=== PATIENT | female | born 1930 | race Caucasian/White ===

== ENCOUNTER 2017-01-12 09:05 | Inpatient (IN) | END 2017-01-19 19:13 | disposition short-term general hospital (02) | DRG 481 | DX: S72.141A Displaced intertrochanteric fracture of right femur, initial encounter for closed fracture (principal); N39.0 Urinary tract infection, site not specified; I10 Essential (primary) hypertension; B96.20 Unspecified Escherichia coli [E. coli] as the cause of diseases classified elsewhere; E21.3 Hyperparathyroidism, unspecified; E78.5 Hyperlipidemia, unspecified; K21.9 Gastro-esophageal reflux disease without esophagitis; R94.31 Abnormal electrocardiogram [ECG] [EKG]; D50.9 Iron deficiency anemia, unspecified; M19.90 Unspecified osteoarthritis, unspecified site; M85.80 Other specified disorders of bone density and structure, unspecified site; W01.0XXA Fall on same level from slipping, tripping and stumbling without subsequent striking against object, initial encounter; Y92.009 Unspecified place in unspecified non-institutional (private) residence as the place of occurrence of the external cause; Z87.891 Personal history of nicotine dependence ==

== ENCOUNTER 2017-01-19 18:06 | Inpatient (IN) | payer MEDICARE, OTHER ==
[~2017-01-19] VITALS: Ht 142.2 cm; Wt 65.0 kg
[~2017-01-19 18:06] MED LIST: ASPI-664 PO; BENA10TA48 PO; Calcium Carbonate PO; DULO20CA17 PO; FER325 PO; FURO-110 PO; FURO40TA4 PO; GABA400C14 PO; HYDR-3498 PO; HYDR200T5 PO; LOSA100T7 PO; METO-448 PO; MYL80 PO; OMEP40CA6 PO; OXYB5TAB22 PO; PANT40TA3 PO; POTA10TA37 PO; UDMOM PO
[2017-01-19 20:00] VITALS: Ht 142.2 cm; Wt 65.0 kg
[2017-01-19] MEDS ORDERED: MAGNESIUM HYDROXIDE 30ML CUP PO PRN (20:30)
[2017-01-19] MEDS ORDERED: ACETAMINOPHEN 325 MG TAB PO PRN (20:30)
[2017-01-19] MEDS: FERROUS SULFATE (EC) 325 MG TAB PO SCH (20:53)
[2017-01-19] MEDS: HYDROCODONE/APAP (5/325) TAB PO PRN (20:53)
[2017-01-19] MEDS: METOPROLOL 25 MG TAB PO SCH (20:54)
[2017-01-19 22:56] LABS: ADD UMIC YES; UR AMORPHOUS CRYSTAL MODERATE /HPF (NONE SEEN); UR ASCORBIC ACID NEGATIVE (NEGATIVE); UR BACTERIA MANY /HPF (NONE SEEN); UR BILIRUBIN (Dip) NEGATIVE (NEGATIVE); UR BLOOD (Dip) 3+ mg/dL (NEGATIVE); UR CLARITY TURBID (CLEAR); UR COLOR YELLOW (YELLOW); UR GLUCOSE (Dip) NEGATIVE (NEGATIVE); UR KETONES (Dip) NEGATIVE (NEGATIVE); UR LEUKOCYTE ESTERASE (Dip) 3+ Leu/ul (NEGATIVE); UR NITRITE (Dip) NEGATIVE (NEGATIVE); UR NONSQUAMOUS EPITHELIAL CELL 6 /HPF (NONE SEEN); UR RBC 60 /HPF (0-5); UR SPECIFIC GRAVITY (Dip) 1.004 (1.003-1.030); UR SQUAMOUS EPITHELIAL CELL FEW /HPF (FEW); UR TOTAL PROTEIN (Dip) 2+ mg/dl (NEGATIVE); UR UROBILINOGEN (Dip) NEGATIVE (NEGATIVE); UR WBC CLUMPS FEW /HPF (NONE SEEN)
[2017-01-19] MEDS: HYDROmorphONE 1 MG/ML SYG IV PRN (23:04)
[2017-01-20] MEDS: HYDROmorphONE 1 MG/ML SYG IV PRN ×4 (05:28→20:35)
[2017-01-20] MEDS: PANTOPRAZOLE (EC) 40 MG TAB PO SCH (05:30)
[2017-01-20] MEDS: GABAPENTIN 400 MG CAP PO SCH ×3 (05:30→20:33)
[2017-01-20 05:36] VITALS: BP 120/57; PULSE 75; RESP 18
[2017-01-20 07:27] LABS: BASOPHILS % 0.2 % (0.0-2.0); EOSINOPHILS # 0.2 10^3/ul (0.0-0.5); EOSINOPHILS % 1.5 % (0.0-7.0); HEMATOCRIT 25.2 % (37.0-47.0); HEMOGLOBIN 7.9 g/dl (12.0-16.0); LYMPHOCYTES # 0.8 10^3/ul (0.8-2.9); LYMPHOCYTES % 6.8 % (15.0-51.0); MEAN CORPUSCULAR HEMOGLOBIN 26.8 pg (29.0-33.0); MEAN CORPUSCULAR HGB CONC 31.3 g/dl (32.0-37.0); MEAN CORPUSCULAR VOLUME 85.4 fl (82.0-101.0); MEAN PLATELET VOLUME 10.9 fl (7.4-10.4); MONOCYTE # 0.9 10^3/ul (0.3-0.9); MONOCYTES % 7.5 % (0.0-11.0); NEUTROPHILS % 83.2 % (39.0-77.0); PLATELET COUNT 193 10^3/UL (140-415); RED BLOOD COUNT 2.95 10^6/ul (4.20-5.40); RED CELL DISTRIBUTION WIDTH 15.5 % (11.5-14.5); WHITE BLOOD COUNT 11.6 10^3/ul (4.8-10.8)
[2017-01-20 07:30] VITALS: BP 117/59; RESP 20
[2017-01-20 07:53] LABS: ALBUMIN 2.6 g/dl (3.3-4.9); ALBUMIN/GLOBULIN RATIO 0.92; BILIRUBIN,INDIRECT 0.5 mg/dl (0-1.1); BILIRUBIN,TOTAL 0.5 mg/dl (0.2-1.3); CALCIUM 7.2 mg/dl (8.4-10.2); CREATININE 0.66 mg/dl (0.44-1.00); TOTAL PROTEIN 5.4 g/dl (6.1-8.1)
[2017-01-20] MEDS: DULOXETINE 20 MG CAP DR PO SCH (08:21)
[2017-01-20] MEDS: FUROSEMIDE 20 MG TAB PO SCH (08:22)
[2017-01-20] MEDS: OXYBUTYNIN (XL) 5 MG TAB PO SCH (08:22)
[2017-01-20] MEDS: FERROUS SULFATE (EC) 325 MG TAB PO SCH ×2 (08:22→20:35)
[2017-01-20] MEDS: ASPIRIN 81 MG TAB PO SCH (08:22)
[2017-01-20] MEDS: HYDROCODONE/APAP (5/325) TAB PO PRN ×3 (08:22→16:48)
[2017-01-20] MEDS: ENOXAPARIN 40 MG/0.4 ML SYG SC SCH (08:28)
[2017-01-20] MEDS: METOPROLOL 25 MG TAB PO SCH ×2 (09:00→20:33)
[2017-01-20] MEDS: BENAZEPRIL 10 MG TAB PO SCH (09:00)
[2017-01-20] MEDS ORDERED: CALCIUM CARBONATE 1.25 GM TAB PO SCH (09:00)
[2017-01-20] MEDS: HYDROXYCHLOROQUINE 200 MG TAB PO SCH (10:13)
[2017-01-20] MEDS: CEFTRIAXONE 1 GM/NS 50 ML IVPB SCH (10:18)
--- NOTE | 2017-01-20 11:32 | CONS ---
DATE OF ADMISSION: 01/19/2017 DATE OF CONSULTATION: 01/20/2017 REHABILITATION POST ADMISSION PHYSICIAN EVALUATION REHABILITATION IMPAIRMENT CATEGORY: Right intertrochanteric hip fracture, status post ORIF. ACTIVE COMORBIDITIES: 1. Rheumatoid arthritis affecting multiple joints including bilateral shoulders with decreased range of motion. 2. Acute pain syndrome. 3. Hypertension. 4. Urinary tract infection. 5. Anemia. 6. Hypocalcemia. 7. Hyperparathyroidism. 8. Gastroesophageal reflux disease. 9. Dyslipidemia. 10. Impairments in self-care and mobility. HISTORY OF PRESENT ILLNESS: Patient is a pleasant 86-year-old female with a history of multiple medical comorbidities including rheumatoid arthritis affecting multiple joints, who is status post a mechanical fall with resultant right intertrochanteric hip fracture. The patient underwent an open reduction and internal fixation on 01/14/2017. The patient's postoperative course has been notable for significant pain, in addition to impairments in self-care and mobility as compared to baseline and patient has been cleared to transfer to the rehabilitation unit for comprehensive interdisciplinary rehab care. FUNCTIONAL HISTORY: Prior to recent events, she was independent in self-care tasks and mobility. Currently, she requires maximal assist for self-care and mobility tasks. I have reviewed the preadmission screen and patient's current functional status is consistent with the preadmission screen. SOCIAL HISTORY: Patient reports living at home and does have support. PAST MEDICAL HISTORY: 1. Rheumatoid arthritis affecting multiple joints. 2. Hypertension. 3. Gastroesophageal reflux disease. 4. Dyslipidemia. 5. Hypocalcemia. 6. Hyperparathyroidism. MEDICATION: 1. Cymbalta 20 mg p.o. q.day. 2. Neurontin 400 mg p.o. t.i.d. 3. Ditropan XL 5 mg p.o. q.day. 4. Aspirin 81 mg p.o. q.day. 5. Plaquenil 200 mg p.o. q.day. 6. Lotensin 10 mg p.o. q.day. 7. Oyster-shell calcium 1.25 p.o. q.day. 8. Rocephin IV. 9. Lovenox 40 mg subcu q.day. 10. [place] p.r.n. 11. Lopressor 25 mg b.i.d. ALLERGIES: PATIENT WITH NO KNOWN DRUG ALLERGIES. PHYSICAL EXAMINATION: VITAL SIGNS: Patient is currently afebrile with stable vital signs. HEENT: Extraocular motion intact. Oropharynx clear. NECK: Supple. LUNGS: Clear anteriorly. HEART: S1, S2. ABDOMEN: Soft, nontender. Positive bowel sounds. NEUROLOGICAL: She is awake and alert. She is oriented x3. She can follow simple one-step commands. She demonstrates good distal strength in bilateral upper extremities, but decreased forward flexion and abduction. She has antigravity strength in the left lower extremity. Dorsiflexion, plantar flexion, intact on the right. PLAN: The patient has been admitted for comprehensive interdisciplinary acute rehab and is anticipated to tolerate 3 hours of daily therapy in divided doses for at least 5/7 days a week. The treatment plan will include: 1. Physical therapy to focus on bed mobility, transfers, household ambulation with goal to have patient reach a standby assist level. 2. Occupational therapy to focus on hygiene, grooming, dressing, bathing and toileting activities with goal to have patient reach a standby assist level. 3. Rehabilitation nursing for carry over of therapeutic interventions. The goal of continent to bowel, bladder, and the goal of pain adequately managed on oral medications. REHABILITATION BARRIER: Pain. INTERVENTION FOR BARRIER: Interdisciplinary rehab. ESTIMATED LENGTH OF STAY: 14 days. DISPOSITION GOAL: Home. I acknowledged I performed a full physical examination on this patient within 24 hours of admission to the rehabilitation unit and believe the patient is a good candidate for comprehensive interdisciplinary rehab care and is anticipated to make reasonable goals in a reasonable period of time as outlined above. Dictated By: Devika Pollock MD /carolyn/danisha /Document#: [id number] CRISTINA
[2017-01-20 14:00] VITALS: BP 120/56; RESP 18
--- NOTE | 2017-01-20 15:14 | CONS ---
Date/Time of Note Date/Time of Note DATE: 01/20/17 TIME: 14:59 Assessment/Plan Assessment/Plan Chief Complaint/Hosp Course 1. Right hip intertrochanteric fracture. s/p ORIF 01/14/2017. --Continue PT eval&tx 2. Essential hypertension. -Continue Metoprolol and Benazepril 3. E. coli urinary tract infection. -Continue antibiotics, total 2 weeks. Last dose 01/28/2007 4. Iron deficiency anemia. -Continue oral iron replacement 5. Hypocalcemia with possible hyperparathyroidism. -Continue oral replacement and follow-up with endocrinology recommendation on elevated PTH levels. 6. Leukocytosis secondary to UTI. Will monitor. Patient is afebrile. 7. Rheumatoid arthritis -Continue with pain control. Plan: Continue with ARU activities. Case discussed with Dr. Wynn. Problems: Consultation Date/Type/Reason Admit Date/Time Jan 19, 2017 at 19:34 Reason for Consultation Internal medicine Hx of Present Illness This is an 86-year-old female with a past medical history of essential hypertension, GERD, dyslipidemia, and chronic constipation, who apparently was admitted at [facility] after she sustained mechanical fall with resultant intertrochanteric right hip fracture. On 01/14/2017, patient had undergone Open reduction and internal fixation of the intertrochanteric fracture of the right hip . Patient tolerated the procedure postoperatively. During the course of hospitalization [facility], she was treated for E. coli urinary tract infection. She was also noted with persistent hypocalcemia requiring replacement and also had elevated PTH for which an endocrinology consult was requested. Patient was evaluated by physical therapy and was accepted to acute rehabilitation unit for further comprehensive interdisciplinary rehab care. A 12 point review of system was assessed and is negative other than what is mentioned in HPI Past Medical History See HPI Past Surgical History See HPI Past Surgical Hx: cholecystectomy, other Social History No history of alcohol, smoking or illicit drug use. Smoking Status: Never smoker Exam/Review of Systems Vital Signs Vitals Vital Signs Date Time Temp Pulse Resp B/P Pulse Ox O2 Delivery O2 Flow Rate FiO2 01/20/17 07:30 98.9 78 20 117/59 98 01/20/17 05:36 Room Air Exam General: Elderly female, not in any acute distress . HEENT: Normocephalic, Atraumatic, No laceration or hematoma; Eyes: PEERL, Conjunctiva clear, Anicteric sclera Neck: Supple without any lymphadenopathy, nontender, no JVD, no carotid bruits, trachea midline, no thyromegaly Cardiac: S1, S2 auscultated, regular rhythm and rate, no mumurs or gallop Pulmonary: Normal respiratory effort. Chest clear to auscultation bilaterally, no adventitious breath sounds GI: Abdomen normal to inspection. Soft, non tender, non- distended, no masses, no rebound tenderness or guarding. Bowel sounds active on all four quadrants Genitourinary: Deferred Extremities: Right hip with dressing intact. No cyanosis, clubbing, or edema. Pulses [2+] bilaterally. Range of motion decreased on right lower extremity, otherwise intact on all other. No focal weakness appreciated. Neurologic: Alert to person, place, time, and situation. Affect appropriate, intact sensation. Skin: Clean,dry, and intact. No ecchymosis, no rashes, or lesions Results Result Diagram: 01/20/17 0618 01/20/17 0618 Results 24 hrs Laboratory Tests Test 01/19/17 22:05 01/20/17 06:18 Urine Color YELLOW Urine Clarity TURBID A Urine pH 6.0 Urine Specific [place] 1.004 Urine Ketones NEGATIVE Urine Nitrite NEGATIVE Urine Bilirubin NEGATIVE Urine Urobilinogen NEGATIVE Urine Leukocyte Esterase 3+ H Urine Microscopic RBC 60 H Urine Microscopic WBC > 182 H Urine Squamous Epithelial Cells FEW Urine Amorphous Crystals MODERATE Urine Bacteria MANY A Urine Hemoglobin 3+ H Urine Glucose NEGATIVE Urine Total Protein 2+ H White Blood Count 11.6 #H Red Blood Count 2.95 L Hemoglobin 7.9 L Hematocrit 25.2 L Mean Corpuscular Volume 85.4 Mean Corpuscular Hemoglobin 26.8 L Mean Corpuscular Hemoglobin Concent 31.3 L Red Cell Distribution Width 15.5 H Platelet Count 193 Mean Platelet Volume 10.9 H Neutrophils % 83.2 H Lymphocytes % 6.8 L Monocytes % 7.5 Eosinophils % 1.5 Basophils % 0.2 Nucleated Red Blood Cells % 0.0 Neutrophils # (Manual) 10 H Lymphocytes # 0.8 Monocytes # 0.9 Eosinophils # 0.2 Basophils # 0.0 Nucleated Red Blood Cells # 0.0 Sodium Level 140 Potassium Level 4.0 Chloride Level 109 Carbon Dioxide Level 21 Anion Gap 14 Blood Urea Nitrogen 11 Creatinine 0.66 Glucose Level 93 Calcium Level 7.2 L Total Bilirubin 0.5 Direct Bilirubin 0.00 Indirect Bilirubin 0.5 Aspartate Amino Transf (AST/SGOT) 21 Alanine Aminotransferase (ALT/SGPT) 26 Alkaline Phosphatase 67 Total Protein 5.4 L Albumin 2.6 L Globulin 2.80 Albumin/Globulin Ratio 0.92 Medications Medications Current Medications Ferrous Sulfate (Ferrous Sulfate (Ec)) 325 mg BID PO Last administered on 08:22; Admin Dose 325 MG; Start 01/19/17 at 21:00 Pantoprazole (Protonix Tab) 40 mg DAILY@06 PO Last administered on 01/20/17 05 :30; Admin Dose 40 MG; Start 01/20/17 at 06:00 Furosemide (Lasix) 20 mg DAILY PO Last administered on 01/20/17 08:22; Admin Dose 20 MG; Start 01/20/17 at 09:00 Simethicone (Mylicon) 80 mg Q6H PRN PO DISTENSION/GAS/BLOATING; Start 01/19/17 at 20:30 Magnesium Hydroxide (Milk Of Mag) 30 ml DAILY PRN PO CONSTIPATION; Start at 20:30 Metoprolol Tartrate (Lopressor) 25 mg BID PO Last administered on 01/19/17 20: 54; Admin Dose 25 MG; Start 01/19/17 at 21:00 Enoxaparin Sodium (Lovenox) 40 mg DAILY SC Last administered on 01/20/17 08:28 ; Admin Dose 40 MG; Start 01/20/17 at 09:00 Calcium Carbonate (Oyster Shell Calcium) 1.25 gm DAILY PO Last administered on 01/20/17 08:22; Admin Dose 1.25 GM; Start 01/20/17 at 09:00 Benazepril HCl (Lotensin) 10 mg DAILY PO ; Start 01/20/17 at 09:00 Acetaminophen 650 mg 650 mg Q6H PRN PO PAIN LEVEL 1-3 OR FEVER; Start 01/19/17 at 20:30 Ceftriaxone Sodium (Rocephin) 50 ml @ 100 mls/hr Q24H IVPB Last administered on 01/20/17 10:18; Admin Dose 100 MLS/HR; Start 01/20/17 at 11:00; Stop at 11:29 Duloxetine HCl (Cymbalta) 20 mg DAILY PO Last administered on 01/20/17 08:21; Admin Dose 20 MG; Start 01/20/17 at 09:00 Gabapentin (Neurontin) 400 mg Q8 PO Last administered on 01/20/17 13:50; Admin Dose 400 MG; Start 01/20/17 at 06:00 Oxybutynin Chloride (Ditropan Xl) 5 mg DAILY PO Last administered on 01/20/17 08:22; Admin Dose 5 MG; Start 01/20/17 at 09:00 Aspirin (Aspirin) 81 mg DAILY PO Last administered on 01/20/17 08:22; Admin Dose 81 MG; Start 01/20/17 at 09:00 Hydroxychloroquine Sulfate (Plaquenil) 200 mg DAILY PO Last administered on 10:13; Admin Dose 200 MG; Start 01/20/17 at 09:00 Acetaminophen/ Hydrocodone Bitart ([place] (5/325)) 2 tab Q4H PRN PO MODERATE PAIN LEVEL 4-6 Last administered on 01/20/17 12:36; Admin Dose 2 TAB; Start at 13:00 Hydromorphone HCl (Dilaudid) 1 mg Q3H PRN IV PAIN Last administered on 13:44; Admin Dose 1 MG; Start 01/20/17 at 10:00 SERAFIN GARZA NP Jan 20, 2017 15:10
[2017-01-20 19:46] VITALS: BP 115/65; RESP 18
--- NOTE | 2017-01-20 20:45 | CONS ---
Date/Time of Note Date/Time of Note DATE: 01/20/17 TIME: 20:40 Assessment/Plan Assessment/Plan Problems: (1) Osteoporosis Status: Chronic Comment: History of bisphosphonate usage patient who is mobilized can occasionally lead to hypocalcemia with elevated PTH levels. We need to rule out other causes of secondary hyperparathyroidism such as vitamin D deficiency. She is also on proton pump inhibitor therapy which will interfere with calcium absorption. I cannot find that PTH levels in the medical record. I am going to check a 25-hydroxy vitamin D level and increase oral calcium supplementation. Based on the results of laboratory testing we may go ahead and use calcitriol as well to bring her calcium levels up. I will follow her along with you Qualifiers: Qualified Code: M80.00XA - Age-related osteoporosis with current pathological fracture, initial encounter (2) Hypocalcemia Status: Acute Comment: Was not present prior admissions to the hospital and appears to be new as of January 12, 2017 did therapeutics as above (3) UTI (lower urinary tract infection) Status: Acute Comment: Will need to follow the culture sensitivity results and fine-tune Consultation Date/Type/Reason Admit Date/Time Jan 19, 2017 at 19:34 Date of Consultation: Jan 20, 2017 Type of Consultation: Endocrinology Reason for Consultation Hypocalcemia with reported elevated PTH levels (not locatable in chart) in a patient with a known history of osteoporosis previously treated with bisphosphonate therapy Referring Provider: SERAFIN GARZA NP Hx of Present Illness Charming 86-year-old woman with a history of osteoporosis previously treated with alendronate. Patient reports that she had a full sustained her fracture. Reports that she previously been told a somewhat low calciums although does not have a great deal detail on this. He has been on bisphosphonate therapy. She has not had any type of neck surgery. Constitutional: no complaints Eyes: no complaints ENT: no complaints Respiratory: no complaints Cardiovascular: no complaints Gastrointestinal: no complaints (Denies constipation) Musculoskeletal: other (Pain at area of hip) Past Medical History Osteoporosis; hypertension; active UTI; gastroesophageal reflux disease; Past Surgical History Status post post ORIF of hip fracture Past Surgical Hx: cholecystectomy, other Family History Significant Family History: hypertension, other (Positive osteoporosis) Social History Alcohol Use: none Smoking Status: Never smoker Drug Use: none Exam/Review of Systems Vital Signs Vitals Vital Signs Date Time Temp Pulse Resp B/P Pulse Ox O2 Delivery O2 Flow Rate FiO2 01/20/17 19:46 98.5 83 18 115/65 96 01/20/17 05:36 Room Air Exam Negative for [place] sign negative Trousseau sign Constitutional: alert, oriented Head: atraumatic, normocephalic Neck: non-tender, supple Respiratory: clear to auscultation, normal air movement Cardiovascular: regular rate and rhythm Gastrointestinal: nl liver, spleen, non-tender, soft Results Result Diagram: 01/20/17 0618 01/20/17 0618 Results 24 hrs Laboratory Tests Test 01/19/17 22:05 01/20/17 06:18 Urine Color YELLOW Urine Clarity TURBID A Urine pH 6.0 Urine Specific [place] 1.004 Urine Ketones NEGATIVE Urine Nitrite NEGATIVE Urine Bilirubin NEGATIVE Urine Urobilinogen NEGATIVE Urine Leukocyte Esterase 3+ H Urine Microscopic RBC 60 H Urine Microscopic WBC > 182 H Urine Squamous Epithelial Cells FEW Urine Amorphous Crystals MODERATE Urine Bacteria MANY A Urine Hemoglobin 3+ H Urine Glucose NEGATIVE Urine Total Protein 2+ H White Blood Count 11.6 #H Red Blood Count 2.95 L Hemoglobin 7.9 L Hematocrit 25.2 L Mean Corpuscular Volume 85.4 Mean Corpuscular Hemoglobin 26.8 L Mean Corpuscular Hemoglobin Concent 31.3 L Red Cell Distribution Width 15.5 H Platelet Count 193 Mean Platelet Volume 10.9 H Neutrophils % 83.2 H Lymphocytes % 6.8 L Monocytes % 7.5 Eosinophils % 1.5 Basophils % 0.2 Nucleated Red Blood Cells % 0.0 Neutrophils # (Manual) 10 H Lymphocytes # 0.8 Monocytes # 0.9 Eosinophils # 0.2 Basophils # 0.0 Nucleated Red Blood Cells # 0.0 Sodium Level 140 Potassium Level 4.0 Chloride Level 109 Carbon Dioxide Level 21 Anion Gap 14 Blood Urea Nitrogen 11 Creatinine 0.66 Glucose Level 93 Calcium Level 7.2 L Total Bilirubin 0.5 Direct Bilirubin 0.00 Indirect Bilirubin 0.5 Aspartate Amino Transf (AST/SGOT) 21 Alanine Aminotransferase (ALT/SGPT) 26 Alkaline Phosphatase 67 Total Protein 5.4 L Albumin 2.6 L Globulin 2.80 Albumin/Globulin Ratio 0.92 Medications Medications Current Medications Ferrous Sulfate (Ferrous Sulfate (Ec)) 325 mg BID PO Last administered on t 20:35; Admin Dose 325 MG; Start 01/19/17 at 21:00 Pantoprazole (Protonix Tab) 40 mg DAILY@06 PO Last administered on 01/20/17 05 :30; Admin Dose 40 MG; Start 01/20/17 at 06:00 Furosemide (Lasix) 20 mg DAILY PO Last administered on 01/20/17 08:22; Admin Dose 20 MG; Start 01/20/17 at 09:00 Simethicone (Mylicon) 80 mg Q6H PRN PO DISTENSION/GAS/BLOATING; Start 01/19/17 at 20:30 Magnesium Hydroxide (Milk Of Mag) 30 ml DAILY PRN PO CONSTIPATION; Start at 20:30 Metoprolol Tartrate (Lopressor) 25 mg BID PO Last administered on 01/20/17 20: 33; Admin Dose 25 MG; Start 01/19/17 at 21:00 Enoxaparin Sodium (Lovenox) 40 mg DAILY SC Last administered on 01/20/17 08:28 ; Admin Dose 40 MG; Start 01/20/17 at 09:00 Benazepril HCl (Lotensin) 10 mg DAILY PO ; Start 01/20/17 at 09:00 Acetaminophen 650 mg 650 mg Q6H PRN PO PAIN LEVEL 1-3 OR FEVER; Start 01/19/17 at 20:30 Ceftriaxone Sodium (Rocephin) 50 ml @ 100 mls/hr Q24H IVPB Last administered on 01/20/17 10:18; Admin Dose 100 MLS/HR; Start 01/20/17 at 11:00; Stop at 11:29 Duloxetine HCl (Cymbalta) 20 mg DAILY PO Last administered on 01/20/17 08:21; Admin Dose 20 MG; Start 01/20/17 at 09:00 Gabapentin (Neurontin) 400 mg Q8 PO Last administered on 01/20/17 20:33; Admin Dose 400 MG; Start 01/20/17 at 06:00 Oxybutynin Chloride (Ditropan Xl) 5 mg DAILY PO Last administered on 01/20/17 08:22; Admin Dose 5 MG; Start 01/20/17 at 09:00 Aspirin (Aspirin) 81 mg DAILY PO Last administered on 01/20/17 08:22; Admin Dose 81 MG; Start 01/20/17 at 09:00 Hydroxychloroquine Sulfate (Plaquenil) 200 mg DAILY PO Last administered on 10:13; Admin Dose 200 MG; Start 01/20/17 at 09:00 Acetaminophen/ Hydrocodone Bitart ([place] (5/325)) 2 tab Q4H PRN PO MODERATE PAIN LEVEL 4-6 Last administered on 01/20/17 16:48; Admin Dose 2 TAB; Start at 13:00 Hydromorphone HCl 1 mg 1 mg Q3H PRN IV PAIN Last administered on 01/20/17 20: 35; Admin Dose 1 MG; Start 01/20/17 at 10:00 Ferric Sodium Gluconate Complex/ Sodium Chloride (Ferrlecit/NS) 110 ml @ 100 mls/hr Q24H IVPB ; Start 01/20/17 at 21:00; Stop 01/22/17 at 22:05; Status UNV Cholecalciferol (Vitamin D) 2,000 unit DAILY PO ; Start 01/20/17 at 21:00; Status UNV Calcium Carbonate (Oyster Shell Calcium) 1.25 gm BID PO ; Start 01/20/17 at 21: 00; Status UNV MEHRAN TODD MD Jan 20, 2017 20:45
[2017-01-20] MEDS: SOD FERRIC GLUC COMPLX 125 MG in SOD CHLORIDE 0.9% 100 ML IVPB SCH (22:58)
[2017-01-20] MEDS: CALCIUM CARBONATE 1.25 GM TAB PO SCH (23:00)
[2017-01-20] MEDS: CHOLECALCIFEROL 2,000 UNIT CAP PO SCH (23:06)
[2017-01-21 02:00] VITALS: BP 118/60; RESP 18
[2017-01-21] MEDS: HYDROCODONE/APAP (5/325) TAB PO PRN (06:07)
[2017-01-21] MEDS: PANTOPRAZOLE (EC) 40 MG TAB PO SCH (06:07)
[2017-01-21] MEDS: GABAPENTIN 400 MG CAP PO SCH ×3 (06:07→21:00)
[2017-01-21 08:00] VITALS: BP 114/53; RESP 18
[2017-01-21] MEDS: ENOXAPARIN 40 MG/0.4 ML SYG SC SCH (08:50)
[2017-01-21] MEDS: CALCIUM CARBONATE 1.25 GM TAB PO SCH ×2 (08:52→20:58)
[2017-01-21] MEDS: ASPIRIN 81 MG TAB PO SCH (08:52)
[2017-01-21] MEDS: FUROSEMIDE 20 MG TAB PO SCH (08:52)
[2017-01-21] MEDS: FERROUS SULFATE (EC) 325 MG TAB PO SCH ×2 (08:52→20:58)
[2017-01-21] MEDS: HYDROXYCHLOROQUINE 200 MG TAB PO SCH (08:52)
[2017-01-21] MEDS: OXYBUTYNIN (XL) 5 MG TAB PO SCH (08:52)
[2017-01-21] MEDS: CHOLECALCIFEROL 2,000 UNIT CAP PO SCH (08:52)
[2017-01-21] MEDS: BENAZEPRIL 10 MG TAB PO SCH (08:53)
[2017-01-21] MEDS: METOPROLOL 25 MG TAB PO SCH ×2 (08:55→20:59)
[2017-01-21] MEDS: DULOXETINE 20 MG CAP DR PO SCH (09:00)
[2017-01-21] MEDS: HYDROmorphONE 1 MG/ML SYG IV PRN ×2 (09:43→18:41)
--- NOTE | 2017-01-21 11:02 | CONS ---
Date/Time of Note Date/Time of Note DATE: 01/21/17 TIME: 11:00 Consult Date/Type/Reason Admit Date/Time Jan 19, 2017 at 19:34 Initial Consult Date 01/20/17 Type of Consultation: Endocrinology Ordering Provider: SERAFIN GARZA NP Subjective Still with pain Objective pulm-cta abd-soft max transfer Vital Signs Date Time Temp Pulse Resp B/P Pulse Ox O2 Delivery O2 Flow Rate FiO2 01/21/17 08:00 98.0 70 18 114/53 95 01/20/17 05:36 Room Air Intake and Output 01/20/17 01/20/17 01/21/17 15:00 23:00 07:00 Intake Total 760 ml 660 ml Balance 760 ml 660 ml Results/Medications Result Diagram: 01/20/1761701/20/17617 Results 24 hrs Laboratory Tests Test 01/21/17 06:52 Ionized Calcium (Measured) 1.1 Parathyroid Hormone (Intact) Medications Current Medications Ferrous Sulfate (Ferrous Sulfate (Ec)) 325 mg BID PO Last administered on 08:52; Admin Dose 325 MG; Start 01/19/17 at 21:00 Pantoprazole (Protonix Tab) 40 mg DAILY@06 PO Last administered on 01/21/17 06 :07; Admin Dose 40 MG; Start 01/20/17 at 06:00 Furosemide (Lasix) 20 mg DAILY PO Last administered on 01/21/17 08:52; Admin Dose 20 MG; Start 01/20/17 at 09:00 Simethicone (Mylicon) 80 mg Q6H PRN PO DISTENSION/GAS/BLOATING; Start 01/19/17 at 20:30 Magnesium Hydroxide (Milk Of Mag) 30 ml DAILY PRN PO CONSTIPATION; Start at 20:30 Metoprolol Tartrate (Lopressor) 25 mg BID PO Last administered on 01/20/17 20: 33; Admin Dose 25 MG; Start 01/19/17 at 21:00 Enoxaparin Sodium (Lovenox) 40 mg DAILY SC Last administered on 01/21/17 08:50 ; Admin Dose 40 MG; Start 01/20/17 at 09:00 Benazepril HCl (Lotensin) 10 mg DAILY PO ; Start 01/20/17 at 09:00 Acetaminophen 650 mg 650 mg Q6H PRN PO PAIN LEVEL 1-3 OR FEVER; Start 01/19/17 at 20:30 Ceftriaxone Sodium (Rocephin) 50 ml @ 100 mls/hr Q24H IVPB Last administered on 01/20/17 10:18; Admin Dose 100 MLS/HR; Start 01/20/17 at 11:00; Stop at 11:29 Duloxetine HCl (Cymbalta) 20 mg DAILY PO Last administered on 01/20/17 08:21; Admin Dose 20 MG; Start 01/20/17 at 09:00 Gabapentin (Neurontin) 400 mg Q8 PO Last administered on 01/21/17 06:07; Admin Dose 400 MG; Start 01/20/17 at 06:00 Oxybutynin Chloride (Ditropan Xl) 5 mg DAILY PO Last administered on 01/21/17 08:52; Admin Dose 5 MG; Start 01/20/17 at 09:00 Aspirin (Aspirin) 81 mg DAILY PO Last administered on 01/21/17 08:52; Admin Dose 81 MG; Start 01/20/17 at 09:00 Hydroxychloroquine Sulfate (Plaquenil) 200 mg DAILY PO Last administered on 08:52; Admin Dose 200 MG; Start 01/20/17 at 09:00 Acetaminophen/ Hydrocodone Bitart ([place] (5/325)) 2 tab Q4H PRN PO MODERATE PAIN LEVEL 4-6 Last administered on 01/21/17 06:07; Admin Dose 2 TAB; Start at 13:00 Hydromorphone HCl 1 mg 1 mg Q3H PRN IV PAIN Last administered on 01/21/17 09: 43; Admin Dose 1 MG; Start 01/20/17 at 10:00 Ferric Sodium Gluconate Complex/ Sodium Chloride (Ferrlecit/NS) 110 ml @ 100 mls/hr Q24H IVPB Last administered on 01/20/17 22:58; Admin Dose 100 MLS/HR; Start 01/20/17 at 21:00; Stop 01/22/17 at 22:05 Cholecalciferol (Vitamin D) 2,000 unit DAILY PO Last administered on 01/21/17 08:52; Admin Dose 2,000 UNIT; Start 01/20/17 at 21:00 Calcium Carbonate (Oyster Shell Calcium) 1.25 gm BID PO Last administered on t 08:52; Admin Dose 1.25 GM; Start 01/20/17 at 21:00 Assessment/Plan Additional Assessment/Plan Rehab-right intertrochanteric hip fracture, status post ORIF; Rheumatoid arthritis affecting multiple joints including bilateral shoulders with decreased range of motion. Continue current treatment plan Acute pain syndrome. Hypertension. Urinary tract infection. Anemia. Hypocalcemia. Hyperparathyroidism. Gastroesophageal reflux disease. Dyslipidemia. NAA MARSH MD Jan 21, 2017 11:02
[2017-01-21] MEDS: CEFTRIAXONE 1 GM/NS 50 ML IVPB SCH (11:44)
--- NOTE | 2017-01-21 14:22 | PN ---
Date/Time of Note Date/Time of Note DATE: 01/21/17 TIME: 14:19 Assessment/Plan VTE Prophylaxis VTE Prophylaxis Intervention: heparin Lines/Catheters [facility] Urinary Cath still in place: No Assessment/Plan Chief Complaint/Hosp Course August 86-year-old woman with a history of osteoporosis previously treated with alendronate. Patient reports that she had a full sustained her fracture. Reports that she previously been told a somewhat low calciums although does not have a great deal detail on this. He has been on bisphosphonate therapy. She has not had any type of neck surgery. Problems: (1) Urinary tract infection due to ESBL Klebsiella Status: Acute Comment: I will change out the antibiotics to meropenem which we know this is sensitive to. She will defined week course of therapy and we can recheck her urinary cultures after that (2) Hypocalcemia Status: Acute Comment: Her calcium is coming up to a normal range. This is with the usage of oral calcium supplementation and low-dose vitamin D. Vitamin D levels are pending at this time. Her parathyroid hormone levels are normal response under the circumstances (3) Osteoporosis Status: Chronic Comment: This is noted. Once she becomes more fit and active that we can look at using a drug such as Prolia every 6 months, for now given the hypocalcemia this would not be an appropriate maneuver he Qualifiers: Osteoporosis type: age-related Presence of current pathological fracture: with current pathological fracture Encounter type: initial encounter Qualified Code: M80.00XA - Age-related osteoporosis with current pathological fracture, initial encounter (4) History of fibromyalgia Status: Acute Comment: This combined history of rheumatoid arthritis is limiting her. Will work forward from here with the assistance of the acute rehabilitation unit Subjective 24 Hr Interval Summary Free Text/Dictation Patient resting in bed without complaints Constitutional: no complaints (No fevers chills or sweats) Respiratory: no complaints Cardiovascular: no complaints Gastrointestinal: no complaints Exam/Review of Systems Vital Signs Vitals Vital Signs Date Time Temp Pulse Resp B/P Pulse Ox O2 Delivery O2 Flow Rate FiO2 01/21/17 08:00 98.0 70 18 114/53 95 01/20/17 05:36 Room Air Intake and Output 01/20/17 01/20/17 01/21/17 15:00 23:00 07:00 Intake Total 760 ml 660 ml Balance 760 ml 660 ml Exam Easily awakened complains of pain orthopedics Neck: supple Respiratory: clear to auscultation, normal air movement Cardiovascular: nl pulses, regular rate and rhythm Gastrointestinal: nl liver, spleen, non-tender, other (No CVA tenderness), soft Results Result Diagram: 01/20/1718 01/20/17617 Results 24 hrs Laboratory Tests Test 01/21/17 06:52 Ionized Calcium (Measured) 1.1 Parathyroid Hormone (Intact) Medications Medications Current Medications Ferrous Sulfate (Ferrous Sulfate (Ec)) 325 mg BID PO Last administered on 08:52; Admin Dose 325 MG; Start 01/19/17 at 21:00 Pantoprazole (Protonix Tab) 40 mg DAILY@06 PO Last administered on 01/21/17 06 :07; Admin Dose 40 MG; Start 01/20/17 at 06:00 Furosemide (Lasix) 20 mg DAILY PO Last administered on 01/21/17 08:52; Admin Dose 20 MG; Start 01/20/17 at 09:00 Simethicone (Mylicon) 80 mg Q6H PRN PO DISTENSION/GAS/BLOATING; Start 01/19/17 at 20:30 Magnesium Hydroxide (Milk Of Mag) 30 ml DAILY PRN PO CONSTIPATION; Start at 20:30 Metoprolol Tartrate (Lopressor) 25 mg BID PO Last administered on 01/20/17 20: 33; Admin Dose 25 MG; Start 01/19/17 at 21:00 Enoxaparin Sodium (Lovenox) 40 mg DAILY SC Last administered on 01/21/17 08:50 ; Admin Dose 40 MG; Start 01/20/17 at 09:00 Benazepril HCl (Lotensin) 10 mg DAILY PO ; Start 01/20/17 at 09:00 Acetaminophen (Tylenol Tab) 650 mg Q6H PRN PO PAIN LEVEL 1-3 OR FEVER; Start at 20:30 Duloxetine HCl (Cymbalta) 20 mg DAILY PO Last administered on 01/20/17 08:21; Admin Dose 20 MG; Start 01/20/17 at 09:00 Gabapentin (Neurontin) 400 mg Q8 PO Last administered on 01/21/17 13:24; Admin Dose 400 MG; Start 01/20/17 at 06:00 Oxybutynin Chloride (Ditropan Xl) 5 mg DAILY PO Last administered on 01/21/17 08:52; Admin Dose 5 MG; Start 01/20/17 at 09:00 Aspirin (Aspirin) 81 mg DAILY PO Last administered on 01/21/17 08:52; Admin Dose 81 MG; Start 01/20/17 at 09:00 Hydroxychloroquine Sulfate (Plaquenil) 200 mg DAILY PO Last administered on 08:52; Admin Dose 200 MG; Start 01/20/17 at 09:00 Acetaminophen/ Hydrocodone Bitart ([place] (5/325)) 2 tab Q4H PRN PO MODERATE PAIN LEVEL 4-6 Last administered on 01/21/17 06:07; Admin Dose 2 TAB; Start at 13:00 Hydromorphone HCl 1 mg 1 mg Q3H PRN IV PAIN Last administered on 01/21/17 09: 43; Admin Dose 1 MG; Start 01/20/17 at 10:00 Ferric Sodium Gluconate Complex/ Sodium Chloride (Ferrlecit/NS) 110 ml @ 100 mls/hr Q24H IVPB Last administered on 01/20/17 22:58; Admin Dose 100 MLS/HR; Start 01/20/17 at 21:00; Stop 01/22/17 at 22:05 Cholecalciferol (Vitamin D) 2,000 unit DAILY PO Last administered on 01/21/17 08:52; Admin Dose 2,000 UNIT; Start 01/20/17 at 21:00 Calcium Carbonate 1.25 gm 1.25 gm BID PO Last administered on 01/21/17 08:52; Admin Dose 1.25 GM; Start 01/20/17 at 21:00 Meropenem/Sodium Chloride (Merrem 1 Gm/50 ml (Pmx)) 50 ml @ 100 mls/hr Q12 IVPB ; Start 01/21/17 at 21:00; Stop 01/28/17 at 20:59; Status MEHRAN MUNOZ MD Jan 21, 2017 14:22
[2017-01-21] MEDS: MEROPENEM 1 GM/50ML(PMX) 50 ML IVPB SCH ×2 (15:50→22:47)
[2017-01-21 20:36] VITALS: BP 115/59; RESP 18
[2017-01-21] MEDS: SOD FERRIC GLUC COMPLX 125 MG in SOD CHLORIDE 0.9% 100 ML IVPB SCH (20:59)
[2017-01-21] MEDS ORDERED: LACTULOSE 30ML CUP PO PRN (22:30)
[2017-01-21] MEDS ORDERED: BISACODYL 10 MG SUPP PR PRN (22:30)
[2017-01-21] MEDS ORDERED: MAGNESIUM HYDROXIDE 30ML CUP PO PRN (22:30)
[2017-01-22 02:00] VITALS: BP 118/65; RESP 18
[2017-01-22] MEDS: GABAPENTIN 400 MG CAP PO SCH ×3 (06:41→21:53)
[2017-01-22] MEDS: PANTOPRAZOLE (EC) 40 MG TAB PO SCH (06:41)
[2017-01-22 08:00] VITALS: BP 154/62; PULSE 83; RESP 18
[2017-01-22] MEDS: ENOXAPARIN 40 MG/0.4 ML SYG SC SCH (08:27)
[2017-01-22] MEDS: FUROSEMIDE 20 MG TAB PO SCH (08:28)
[2017-01-22] MEDS: CALCIUM CARBONATE 1.25 GM TAB PO SCH ×2 (08:28→20:54)
[2017-01-22] MEDS: FERROUS SULFATE (EC) 325 MG TAB PO SCH ×2 (08:28→20:54)
[2017-01-22] MEDS: ASPIRIN 81 MG TAB PO SCH (08:28)
[2017-01-22] MEDS: BENAZEPRIL 10 MG TAB PO SCH (08:28)
[2017-01-22] MEDS: METOPROLOL 25 MG TAB PO SCH ×2 (08:28→20:55)
[2017-01-22] MEDS: HYDROXYCHLOROQUINE 200 MG TAB PO SCH (08:28)
[2017-01-22] MEDS: CHOLECALCIFEROL 2,000 UNIT CAP PO SCH (08:28)
[2017-01-22] MEDS: OXYBUTYNIN (XL) 5 MG TAB PO SCH (08:28)
[2017-01-22] MEDS: MEROPENEM 1 GM/50ML(PMX) 50 ML IVPB SCH ×2 (08:30→21:53)
[2017-01-22] MEDS: DOCUSATE SODIUM 100 MG CAP PO SCH ×2 (08:31→20:54)
--- NOTE | 2017-01-22 12:48 | PN ---
Date/Time of Note Date/Time of Note DATE: 01/22/17 TIME: 12:44 Assessment/Plan VTE Prophylaxis VTE Prophylaxis Intervention: heparin Lines/Catheters IV [facility] Saline Lock Urinary Cath still in place: No Assessment/Plan Chief Complaint/Hosp Course August 86-year-old woman with a history of osteoporosis previously treated with alendronate. Patient reports that she had a full sustained her fracture. Reports that she previously been told a somewhat low calciums although does not have a great deal detail on this. He has been on bisphosphonate therapy. Problems: (1) Urinary tract infection due to ESBL Klebsiella Status: Acute Comment: She is on appropriate antibiotics will receive a full course of therapeutics. For now she will need to be on isolation temporarily (2) Osteoporosis Status: Chronic Comment: Has a previously given her total situation we need to wait to give her treatment. When she is up and ambulating and is nutritionally replete then we can use Prolia in this individual. Qualifiers: Osteoporosis type: age-related Presence of current pathological fracture: with current pathological fracture Encounter type: initial encounter Qualified Code: M80.00XA - Age-related osteoporosis with current pathological fracture, initial encounter (3) Hypocalcemia Status: Acute Comment: This is coming into a normal range. Please note the normal ionized calcium (4) History of fibromyalgia Status: Acute Comment: At this time do not see an indication to treat with gabapentin Savella venlafaxine duloxetine HCl (5) Rheumatoid arthritis Status: Chronic Comment: Noted. Treatment as per Dr. Subramanian Qualifiers: Rheumatoid arthritis location: unspecified site Rheumatoid factor presence : with rheumatoid factor Qualified Code: M05.9 - Rheumatoid arthritis with positive rheumatoid factor, involving unspecified site (6) Closed fracture of right hip requiring operative repair with routine healing Status: Acute Comment: Status post ORIF and in the recovery phase Subjective 24 Hr Interval Summary Free Text/Dictation Patient is laying down in bed flat and eating lunch complains of cough; pain at her right hip; and in both shoulders Constitutional: no complaints (Denies fevers chills or sweats) Respiratory: cough Cardiovascular: no complaints Gastrointestinal: no complaints Musculoskeletal: other (Right hip pain bilateral shoulder pain) Exam/Review of Systems Vital Signs Vitals Vital Signs Date Time Temp Pulse Resp B/P Pulse Ox O2 Delivery O2 Flow Rate FiO2 01/22/17 08:00 98.3 83 18 154/62 97 Room Air Intake and Output 01/21/17 01/21/17 01/22/17 15:00 23:00 07:00 Intake Total 900 ml 1040 ml 750 ml Balance 900 ml 1040 ml 750 ml Exam Constitutional: alert, oriented Respiratory: clear to auscultation, normal air movement Cardiovascular: nl pulses Gastrointestinal: nl liver, spleen, non-tender, soft Results Result Diagram: 01/20/1761701/20/1718 Medications Medications Current Medications Ferrous Sulfate (Ferrous Sulfate (Ec)) 325 mg BID PO Last administered on 08:28; Admin Dose 325 MG; Start 01/19/17 at 21:00 Pantoprazole (Protonix Tab) 40 mg DAILY@06 PO Last administered on 01/22/17 06 :41; Admin Dose 40 MG; Start 01/20/17 at 06:00 Furosemide (Lasix) 20 mg DAILY PO Last administered on 01/22/17 08:28; Admin Dose 20 MG; Start 01/20/17 at 09:00 Simethicone (Mylicon) 80 mg Q6H PRN PO DISTENSION/GAS/BLOATING; Start 01/19/17 at 20:30 Magnesium Hydroxide (Milk Of Mag) 30 ml DAILY PRN PO CONSTIPATION; Start at 20:30 Metoprolol Tartrate (Lopressor) 25 mg BID PO Last administered on 01/22/17 08: 28; Admin Dose 25 MG; Start 01/19/17 at 21:00 Enoxaparin Sodium (Lovenox) 40 mg DAILY SC Last administered on 01/22/17 08:27 ; Admin Dose 40 MG; Start 01/20/17 at 09:00 Benazepril HCl (Lotensin) 10 mg DAILY PO Last administered on 01/22/17 08:28; Admin Dose 10 MG; Start 01/20/17 at 09:00 Acetaminophen (Tylenol Tab) 650 mg Q6H PRN PO PAIN LEVEL 1-3 OR FEVER; Start at 20:30 Duloxetine HCl (Cymbalta) 20 mg DAILY PO Last administered on 01/20/17 08:21; Admin Dose 20 MG; Start 01/20/17 at 09:00 Gabapentin (Neurontin) 400 mg Q8 PO Last administered on 01/22/17 06:41; Admin Dose 400 MG; Start 01/20/17 at 06:00 Oxybutynin Chloride (Ditropan Xl) 5 mg DAILY PO Last administered on 01/22/17 08:28; Admin Dose 5 MG; Start 01/20/17 at 09:00 Aspirin (Aspirin) 81 mg DAILY PO Last administered on 01/22/17 08:28; Admin Dose 81 MG; Start 01/20/17 at 09:00 Hydroxychloroquine Sulfate (Plaquenil) 200 mg DAILY PO Last administered on 08:28; Admin Dose 200 MG; Start 01/20/17 at 09:00 Acetaminophen/ Hydrocodone Bitart ([place] (5/325)) 2 tab Q4H PRN PO MODERATE PAIN LEVEL 4-6 Last administered on 01/21/17 06:07; Admin Dose 2 TAB; Start at 13:00 Hydromorphone HCl 1 mg 1 mg Q3H PRN IV PAIN Last administered on 01/21/17 18: 41; Admin Dose 1 MG; Start 01/20/17 at 10:00 Ferric Sodium Gluconate Complex/ Sodium Chloride (Ferrlecit/NS) 110 ml @ 100 mls/hr Q24H IVPB Last administered on 01/21/17 20:59; Admin Dose 100 MLS/HR; Start 01/20/17 at 21:00; Stop 01/22/17 at 22:05 Cholecalciferol (Vitamin D) 2,000 unit DAILY PO Last administered on 01/22/17 08:28; Admin Dose 2,000 UNIT; Start 01/20/17 at 21:00 Calcium Carbonate 1.25 gm 1.25 gm BID PO Last administered on 01/22/17 08:28; Admin Dose 1.25 GM; Start 01/20/17 at 21:00 Meropenem/Sodium Chloride (Merrem 1 Gm/50 ml (Pmx)) 50 ml @ 100 mls/hr Q12 IVPB Last administered on 01/22/17 08:30; Admin Dose 100 MLS/HR; Start at 15:00; Stop 01/28/17 at 14:59 Docusate Sodium (Colace) 100 mg BID PO Last administered on 01/22/17 08:31; Admin Dose 100 MG; Start 01/22/17 at 09:00 Magnesium Hydroxide (Milk Of Mag) 30 ml BID PRN PO CONSTIPATION; Start at 22:30 Lactulose (Enulose) 20 gm DAILY PRN PO CONSTIPATION; Start 01/21/17 at 22:30 Senna (Senokot) 1 tab HS PO ; Start 01/22/17 at 21:00 Bisacodyl (Dulcolax Supp) 10 mg DAILY PRN [place] CONSTIPATION; Start 01/21/17 at 22 :30 MEHRAN TODD MD Jan 22, 2017 12:48
[2017-01-22] MEDS: DULOXETINE 20 MG CAP DR PO SCH (13:00)
[2017-01-22] MEDS: HYDROmorphONE 1 MG/ML SYG IV PRN (13:00)
[2017-01-22 20:00] VITALS: BP 152/69; RESP 18
[2017-01-22] MEDS: SENNA TAB PO SCH (20:54)
[2017-01-22] MEDS: SOD FERRIC GLUC COMPLX 125 MG in SOD CHLORIDE 0.9% 100 ML IVPB SCH (20:55)
[2017-01-23 02:12] VITALS: BP 162/70; RESP 18
[2017-01-23] MEDS: GABAPENTIN 400 MG CAP PO SCH ×3 (06:02→21:18)
[2017-01-23] MEDS: PANTOPRAZOLE (EC) 40 MG TAB PO SCH (06:02)
[2017-01-23 07:14] LABS: BASOPHILS % 0.4 % (0.0-2.0); EOSINOPHILS # 0.1 10^3/ul (0.0-0.5); EOSINOPHILS % 1.4 % (0.0-7.0); HEMATOCRIT 25.2 % (37.0-47.0); LYMPHOCYTES # 1.5 10^3/ul (0.8-2.9); LYMPHOCYTES % 14.9 % (15.0-51.0); MEAN CORPUSCULAR HEMOGLOBIN 26.8 pg (29.0-33.0); MEAN CORPUSCULAR HGB CONC 31.7 g/dl (32.0-37.0); MEAN CORPUSCULAR VOLUME 84.3 fl (82.0-101.0); MEAN PLATELET VOLUME 10.3 fl (7.4-10.4); MONOCYTE # 0.7 10^3/ul (0.3-0.9); MONOCYTES % 6.9 % (0.0-11.0); NEUTROPHILS % 74.4 % (39.0-77.0); NUCLEATED RED BLOOD CELLS% 0.2 /100WBC (0.0-0.0); PLATELET COUNT 258 10^3/UL (140-415); RED BLOOD COUNT 2.99 10^6/ul (4.20-5.40); RED CELL DISTRIBUTION WIDTH 16.5 % (11.5-14.5); WHITE BLOOD COUNT 9.9 10^3/ul (4.8-10.8)
[2017-01-23] MEDS: HYDROmorphONE 1 MG/ML SYG IV PRN ×6 (07:18→21:20)
[2017-01-23 07:30] VITALS: BP 196/80; RESP 20
[2017-01-23] MEDS: BENAZEPRIL 10 MG TAB PO SCH (08:45)
[2017-01-23] MEDS: ASPIRIN 81 MG TAB PO SCH (08:45)
[2017-01-23] MEDS: HYDROXYCHLOROQUINE 200 MG TAB PO SCH (08:46)
[2017-01-23] MEDS: FUROSEMIDE 20 MG TAB PO SCH (08:46)
[2017-01-23] MEDS: DULOXETINE 20 MG CAP DR PO SCH (08:46)
[2017-01-23] MEDS: CHOLECALCIFEROL 2,000 UNIT CAP PO SCH (08:46)
[2017-01-23] MEDS: CALCIUM CARBONATE 1.25 GM TAB PO SCH ×2 (08:46→21:18)
[2017-01-23] MEDS: METOPROLOL 25 MG TAB PO SCH ×2 (08:46→21:18)
[2017-01-23] MEDS: FERROUS SULFATE (EC) 325 MG TAB PO SCH ×2 (08:46→21:18)
[2017-01-23] MEDS: DOCUSATE SODIUM 100 MG CAP PO SCH ×2 (08:46→21:17)
[2017-01-23] MEDS: OXYBUTYNIN (XL) 5 MG TAB PO SCH (08:47)
[2017-01-23] MEDS: ENOXAPARIN 40 MG/0.4 ML SYG SC SCH (08:56)
--- NOTE | 2017-01-23 09:24 | CONS ---
Date/Time of Note Date/Time of Note DATE: 01/23/17 TIME: 09:24 Consult Date/Type/Reason Admit Date/Time Jan 19, 2017 at 19:34 Initial Consult Date 01/20/17 Type of Consultation: Endocrinology Ordering Provider: SERAFIN GARZA NP Subjective Pain improving Objective Lungs clear Abdomen soft Vital Signs Date Time Temp Pulse Resp B/P Pulse Ox O2 Delivery O2 Flow Rate FiO2 01/23/17 07:30 99.8 84 20 196/80 97 01/22/17 08:00 Room Air Intake and Output 01/22/17 01/22/17 01/23/17 15:00 23:00 07:00 Intake Total 50 ml 360 ml 440 ml Balance 50 ml 360 ml 440 ml Exam Interdisciplinary team conference Bowel-continent Bladder-continent Integument-clean dry incision Self-care Dressing-mod max Toileting-max Bathing-max Mobility Bed mobility-max Transfer-max Ambulation-next few steps Patient making steady gradual gains. Working towards discharge home with home health physical therapy and Occupational Therapy on 02/02/2017. Results/Medications Result Diagram: 01/23/17 0646 01/20/17 0618 Results 24 hrs Laboratory Tests Test 01/23/17 06:46 White Blood Count 9.9 Red Blood Count 2.99 L Hemoglobin 8.0 L Hematocrit 25.2 L Mean Corpuscular Volume 84.3 Mean Corpuscular Hemoglobin 26.8 L Mean Corpuscular Hemoglobin Concent 31.7 L Red Cell Distribution Width 16.5 H Platelet Count 258 # Mean Platelet Volume 10.3 Neutrophils % 74.4 Lymphocytes % 14.9 L Monocytes % 6.9 Eosinophils % 1.4 Basophils % 0.4 Nucleated Red Blood Cells % 0.2 H Neutrophils # (Manual) 7 Lymphocytes # 1.5 Monocytes # 0.7 Eosinophils # 0.1 Basophils # 0.0 Nucleated Red Blood Cells # 0.0 Medications Current Medications Ferrous Sulfate (Ferrous Sulfate (Ec)) 325 mg BID PO Last administered on 08:46; Admin Dose 325 MG; Start 01/19/17 at 21:00 Pantoprazole (Protonix Tab) 40 mg DAILY@06 PO Last administered on 01/23/17 06 :02; Admin Dose 40 MG; Start 01/20/17 at 06:00 Furosemide (Lasix) 20 mg DAILY PO Last administered on 01/23/17 08:46; Admin Dose 20 MG; Start 01/20/17 at 09:00 Simethicone (Mylicon) 80 mg Q6H PRN PO DISTENSION/GAS/BLOATING Last administered on 01/23/17 01:14; Admin Dose 80 MG; Start 01/19/17 at 20:30 Magnesium Hydroxide (Milk Of Mag) 30 ml DAILY PRN PO CONSTIPATION; Start at 20:30 Metoprolol Tartrate (Lopressor) 25 mg BID PO Last administered on 01/23/17 08: 46; Admin Dose 25 MG; Start 01/19/17 at 21:00 Enoxaparin Sodium (Lovenox) 40 mg DAILY SC Last administered on 01/23/17 08:56 ; Admin Dose 40 MG; Start 01/20/17 at 09:00 Benazepril HCl (Lotensin) 10 mg DAILY PO Last administered on 01/23/17 08:45; Admin Dose 10 MG; Start 01/20/17 at 09:00 Acetaminophen (Tylenol Tab) 650 mg Q6H PRN PO PAIN LEVEL 1-3 OR FEVER; Start at 20:30 Duloxetine HCl (Cymbalta) 20 mg DAILY PO Last administered on 01/23/17 08:46; Admin Dose 20 MG; Start 01/20/17 at 09:00 Gabapentin (Neurontin) 400 mg Q8 PO Last administered on 01/23/17 06:02; Admin Dose 400 MG; Start 01/20/17 at 06:00 Oxybutynin Chloride (Ditropan Xl) 5 mg DAILY PO Last administered on 01/23/17 08:47; Admin Dose 5 MG; Start 01/20/17 at 09:00 Aspirin (Aspirin) 81 mg DAILY PO Last administered on 01/23/17 08:45; Admin Dose 81 MG; Start 01/20/17 at 09:00 Hydroxychloroquine Sulfate (Plaquenil) 200 mg DAILY PO Last administered on 08:46; Admin Dose 200 MG; Start 01/20/17 at 09:00 Acetaminophen/ Hydrocodone Bitart ([place] (5/325)) 2 tab Q4H PRN PO MODERATE PAIN LEVEL 4-6 Last administered on 01/21/17 06:07; Admin Dose 2 TAB; Start at 13:00 Hydromorphone HCl (Dilaudid) 1 mg Q3H PRN IV PAIN Last administered on 07:18; Admin Dose 1 MG; Start 01/20/17 at 10:00 Cholecalciferol (Vitamin D) 2,000 unit DAILY PO Last administered on 01/23/17 08:46; Admin Dose 2,000 UNIT; Start 01/20/17 at 21:00 Calcium Carbonate 1.25 gm 1.25 gm BID PO Last administered on 01/23/17 08:46; Admin Dose 1.25 GM; Start 01/20/17 at 21:00 Meropenem/Sodium Chloride (Merrem 1 Gm/50 ml (Pmx)) 50 ml @ 100 mls/hr Q12 IVPB Last administered on 01/22/17 21:53; Admin Dose 100 MLS/HR; Start at 15:00; Stop 01/28/17 at 14:59 Docusate Sodium (Colace) 100 mg BID PO Last administered on 01/23/17 08:46; Admin Dose 100 MG; Start 01/22/17 at 09:00 Magnesium Hydroxide (Milk Of Mag) 30 ml BID PRN PO CONSTIPATION; Start at 22:30 Lactulose (Enulose) 20 gm DAILY PRN PO CONSTIPATION; Start 01/21/17 at 22:30 Senna (Senokot) 1 tab HS PO Last administered on 01/22/17 20:54; Admin Dose 1 TAB; Start 01/22/17 at 21:00 Bisacodyl (Dulcolax Supp) 10 mg DAILY PRN [place] CONSTIPATION; Start 01/21/17 at 22 :30 NAA MARSH MD Jan 23, 2017 09:24
[2017-01-23] MEDS: MEROPENEM 1 GM/50ML(PMX) 50 ML IVPB SCH ×2 (10:21→21:18)
--- NOTE | 2017-01-23 11:41 | CONS ---
Date/Time of Note Date/Time of Note DATE: 01/23/17 TIME: 11:40 Assessment/Plan Assessment/Plan Chief Complaint/Hosp Course 1. Right hip intertrochanteric fracture. s/p ORIF 01/14/2017. --Continue PT eval&tx 2. Essential hypertension. Stable. -Continue Metoprolol and Benazepril 3. ESBL urinary tract infection. -Patient has been on appropriate antibiotic for 7 day duration. 4. Iron deficiency anemia. Stable H&H. -Continue oral iron replacement 5. Hypocalcemia with possible hyperparathyroidism. -Continue oral replacement . 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 6. Rheumatoid arthritis -Continue with pain control. 7. Debility -Continue with rehabilitation therapies. Plan: We will also obtain a ultrasound of right lower extremity to rule out DVT as she is noted with some more swelling on right lower extremity. Case discussed with Dr. Severino. Problems: Consultation Date/Type/Reason Admit Date/Time Jan 19, 2017 at 19:34 Initial Consult Date 01/20/17 Type of Consultation: Endocrinology Referring Provider: SERAFIN GARZA NP 24 HR Interval Summary Free Text/Dictation Patient has been participating in physical therapy. Today, she is noted with more swelling on right lower extremity. Exam/Review of Systems Vital Signs Vitals Vital Signs Date Time Temp Pulse Resp B/P Pulse Ox O2 Delivery O2 Flow Rate FiO2 01/23/17 07:30 99.8 84 20 196/80 97 01/22/17 08:00 Room Air Intake and Output 01/22/17 01/22/17 01/23/17 15:00 23:00 07:00 Intake Total 50 ml 360 ml 440 ml Balance 50 ml 360 ml 440 ml Exam General: Elderly female, not in any acute distress . HEENT: Normocephalic, Atraumatic, No laceration or hematoma; Eyes: PEERL, Conjunctiva clear, Anicteric sclera Neck: Supple without any lymphadenopathy, nontender, no JVD, no carotid bruits, trachea midline, no thyromegaly Cardiac: S1, S2 auscultated, regular rhythm and rate, no mumurs or gallop Pulmonary: Normal respiratory effort. Chest clear to auscultation bilaterally, no adventitious breath sounds GI: Abdomen normal to inspection. Soft, non tender, non- distended, no masses, no rebound tenderness or guarding. Bowel sounds active on all four quadrants Genitourinary: Deferred Extremities: Positive edema on right lower extremity. Right hip surgical site intact. No cyanosis, clubbing, or edema. Pulses [2+] bilaterally. Range of motion decreased on right lower extremity, otherwise intact on all other. No focal weakness appreciated. Neurologic: Alert to person, place, time, and situation. Affect appropriate, intact sensation. Skin: Clean,dry, and intact. No ecchymosis, no rashes, or lesions Results Result Diagram: 01/23/17 0646 01/20/17 0618 Results 24 hrs Laboratory Tests Test 01/23/17 06:46 White Blood Count 9.9 Red Blood Count 2.99 L Hemoglobin 8.0 L Hematocrit 25.2 L Mean Corpuscular Volume 84.3 Mean Corpuscular Hemoglobin 26.8 L Mean Corpuscular Hemoglobin Concent 31.7 L Red Cell Distribution Width 16.5 H Platelet Count 258 # Mean Platelet Volume 10.3 Neutrophils % 74.4 Lymphocytes % 14.9 L Monocytes % 6.9 Eosinophils % 1.4 Basophils % 0.4 Nucleated Red Blood Cells % 0.2 H Neutrophils # (Manual) 7 Lymphocytes # 1.5 Monocytes # 0.7 Eosinophils # 0.1 Basophils # 0.0 Nucleated Red Blood Cells # 0.0 Medications Medications Current Medications Ferrous Sulfate (Ferrous Sulfate (Ec)) 325 mg BID PO Last administered on 08:46; Admin Dose 325 MG; Start 01/19/17 at 21:00 Pantoprazole (Protonix Tab) 40 mg DAILY@06 PO Last administered on 01/23/17 06 :02; Admin Dose 40 MG; Start 01/20/17 at 06:00 Furosemide (Lasix) 20 mg DAILY PO Last administered on 01/23/17 08:46; Admin Dose 20 MG; Start 01/20/17 at 09:00 Simethicone (Mylicon) 80 mg Q6H PRN PO DISTENSION/GAS/BLOATING Last administered on 01/23/17 01:14; Admin Dose 80 MG; Start 01/19/17 at 20:30 Magnesium Hydroxide (Milk Of Mag) 30 ml DAILY PRN PO CONSTIPATION; Start at 20:30 Metoprolol Tartrate (Lopressor) 25 mg BID PO Last administered on 01/23/17 08: 46; Admin Dose 25 MG; Start 01/19/17 at 21:00 Enoxaparin Sodium (Lovenox) 40 mg DAILY SC Last administered on 01/23/17 08:56 ; Admin Dose 40 MG; Start 01/20/17 at 09:00 Benazepril HCl (Lotensin) 10 mg DAILY PO Last administered on 01/23/17 08:45; Admin Dose 10 MG; Start 01/20/17 at 09:00 Acetaminophen (Tylenol Tab) 650 mg Q6H PRN PO PAIN LEVEL 1-3 OR FEVER; Start at 20:30 Duloxetine HCl (Cymbalta) 20 mg DAILY PO Last administered on 01/23/17 08:46; Admin Dose 20 MG; Start 01/20/17 at 09:00 Gabapentin (Neurontin) 400 mg Q8 PO Last administered on 01/23/17 06:02; Admin Dose 400 MG; Start 01/20/17 at 06:00 Oxybutynin Chloride (Ditropan Xl) 5 mg DAILY PO Last administered on 01/23/17 08:47; Admin Dose 5 MG; Start 01/20/17 at 09:00 Aspirin (Aspirin) 81 mg DAILY PO Last administered on 01/23/17 08:45; Admin Dose 81 MG; Start 01/20/17 at 09:00 Hydroxychloroquine Sulfate (Plaquenil) 200 mg DAILY PO Last administered on 08:46; Admin Dose 200 MG; Start 01/20/17 at 09:00 Acetaminophen/ Hydrocodone Bitart ([place] (5/325)) 2 tab Q4H PRN PO MODERATE PAIN LEVEL 4-6 Last administered on 01/21/17 06:07; Admin Dose 2 TAB; Start at 13:00 Hydromorphone HCl (Dilaudid) 1 mg Q3H PRN IV PAIN Last administered on 10:15; Admin Dose 1 MG; Start 01/20/17 at 10:00 Cholecalciferol (Vitamin D) 2,000 unit DAILY PO Last administered on 01/23/17 08:46; Admin Dose 2,000 UNIT; Start 01/20/17 at 21:00 Calcium Carbonate 1.25 gm 1.25 gm BID PO Last administered on 01/23/17 08:46; Admin Dose 1.25 GM; Start 01/20/17 at 21:00 Meropenem/Sodium Chloride (Merrem 1 Gm/50 ml (Pmx)) 50 ml @ 100 mls/hr Q12 IVPB Last administered on 01/23/17 10:21; Admin Dose 100 MLS/HR; Start at 15:00; Stop 01/28/17 at 14:59 Docusate Sodium (Colace) 100 mg BID PO Last administered on 01/23/17 08:46; Admin Dose 100 MG; Start 01/22/17 at 09:00 Magnesium Hydroxide (Milk Of Mag) 30 ml BID PRN PO CONSTIPATION; Start at 22:30 Lactulose (Enulose) 20 gm DAILY PRN PO CONSTIPATION; Start 01/21/17 at 22:30 Senna (Senokot) 1 tab HS PO Last administered on 01/22/17 20:54; Admin Dose 1 TAB; Start 01/22/17 at 21:00 Bisacodyl (Dulcolax Supp) 10 mg DAILY PRN [place] CONSTIPATION; Start 01/21/17 at 22 :30 SERAFIN GARZA NP Jan 23, 2017 11:40
[2017-01-23 14:00] VITALS: BP 104/51; RESP 18
[2017-01-23] MEDS: HYDROCORTISONE PR SCH ×2 (14:00→21:00)
--- NOTE | 2017-01-23 14:15 | RADRPT ---
PROCEDURE: US Lower extremity Venous. CLINICAL INDICATION: Right leg edema TECHNIQUE: Multiple sonographic images of the right lower extremity deep venous system was obtaine d utilizing grayscale, color-flow, compressive sonography and doppler imaging with augmentation. Th e images were reviewed on a PACS workstation. COMPARISON: None. FINDINGS: There is normal compressibility and flow within the right common femoral, femoral, posterior tibial, peroneal and popliteal veins. RPTAT: AA IMPRESSION: No sonographic evidence for deep venous thrombosis. .Kaleb Robison MD, MD Date Time Electronically viewed and signed by .Kaleb Robison MD, on 01/23/2017 14:15 .S/
[2017-01-23 20:00] VITALS: BP 109/55; RESP 18
[2017-01-23] MEDS ORDERED: HYDROCORTISONE 1% 28.35 GM OINT TOP SCH (21:00)
[2017-01-23] MEDS: GUAIFENESIN/DM 5ML CUP PO PRN (21:17)
[2017-01-23] MEDS: SENNA TAB PO SCH (21:18)
[2017-01-24 02:00] VITALS: BP 118/62; RESP 18
[2017-01-24] MEDS: GABAPENTIN 400 MG CAP PO SCH ×3 (06:14→20:29)
[2017-01-24] MEDS: PANTOPRAZOLE (EC) 40 MG TAB PO SCH (06:14)
[2017-01-24] MEDS: HYDROmorphONE 1 MG/ML SYG IV PRN ×5 (07:27→19:18)
[2017-01-24 08:16] LABS: ALBUMIN/GLOBULIN RATIO 1.03; BILIRUBIN,INDIRECT 0.5 mg/dl (0-1.1); BILIRUBIN,TOTAL 0.5 mg/dl (0.2-1.3); CALCIUM 8.7 mg/dl (8.4-10.2); CREATININE 0.71 mg/dl (0.44-1.00); POTASSIUM 4.1 mmol/L (3.5-5.1); TOTAL PROTEIN 5.9 g/dl (6.1-8.1)
[2017-01-24] MEDS: HYDROCORTISONE PR SCH ×2 (09:00→20:31)
[2017-01-24] MEDS: GUAIFENESIN/DM 5ML CUP PO PRN (09:57)
[2017-01-24] MEDS: HYDROXYCHLOROQUINE 200 MG TAB PO SCH (09:58)
[2017-01-24] MEDS: CHOLECALCIFEROL 2,000 UNIT CAP PO SCH (09:58)
[2017-01-24] MEDS: ASPIRIN 81 MG TAB PO SCH (09:58)
[2017-01-24] MEDS: OXYBUTYNIN (XL) 5 MG TAB PO SCH (09:58)
[2017-01-24] MEDS: DULOXETINE 20 MG CAP DR PO SCH (09:58)
[2017-01-24] MEDS: FUROSEMIDE 20 MG TAB PO SCH (10:01)
[2017-01-24] MEDS: HYDROCODONE/APAP (5/325) TAB PO PRN (10:03)
[2017-01-24] MEDS: MEROPENEM 1 GM/50ML(PMX) 50 ML IVPB SCH ×2 (10:04→20:30)
[2017-01-24] MEDS: FERROUS SULFATE (EC) 325 MG TAB PO SCH ×2 (10:10→20:29)
[2017-01-24] MEDS: METOPROLOL 25 MG TAB PO SCH ×2 (10:11→20:30)
[2017-01-24] MEDS: DOCUSATE SODIUM 100 MG CAP PO SCH ×2 (10:12→20:29)
[2017-01-24] MEDS: CALCIUM CARBONATE 1.25 GM TAB PO SCH ×2 (10:12→20:29)
[2017-01-24] MEDS: BENAZEPRIL 10 MG TAB PO SCH (10:12)
[2017-01-24] MEDS: ENOXAPARIN 40 MG/0.4 ML SYG SC SCH (10:20)
--- NOTE | 2017-01-24 11:34 | CONS ---
Date/Time of Note Date/Time of Note DATE: 01/24/17 TIME: 11:32 Consult Date/Type/Reason Admit Date/Time Jan 19, 2017 at 19:34 Initial Consult Date 01/20/17 Type of Consultation: Endocrinology Ordering Provider: SERAFIN GARZA NP Subjective Pain improving Objective Lungs clear Abdomen soft Maximal assist transfers Vital Signs Date Time Temp Pulse Resp B/P Pulse Ox O2 Delivery O2 Flow Rate FiO2 01/24/17 02:00 97.8 77 18 118/62 95 01/22/17 08:00 Room Air Intake and Output 01/23/17 01/23/17 01/24/17 15:00 23:00 07:00 Intake Total 50 ml 590 ml 120 ml Balance 50 ml 590 ml 120 ml Results/Medications Result Diagram: 01/23/17 0646 01/24/17 0626 Results 24 hrs Laboratory Tests Test 01/24/17 06:26 01/24/17 11:12 Sodium Level 139 Potassium Level 4.1 Chloride Level 106 Carbon Dioxide Level 25 Anion Gap 12 Blood Urea Nitrogen 15 Creatinine 0.71 Glucose Level 94 Calcium Level 8.7 Total Bilirubin 0.5 Direct Bilirubin 0.00 Indirect Bilirubin 0.5 Aspartate Amino Transf (AST/SGOT) 24 Alanine Aminotransferase (ALT/SGPT) 29 Alkaline Phosphatase 90 Total Protein 5.9 L Albumin 3.0 L Globulin 2.90 Albumin/Globulin Ratio 1.03 Lab Scanned Report REFERENCE LAB Medications Current Medications Ferrous Sulfate (Ferrous Sulfate (Ec)) 325 mg BID PO Last administered on 10:10; Admin Dose 325 MG; Start 01/19/17 at 21:00 Pantoprazole (Protonix Tab) 40 mg DAILY@06 PO Last administered on 01/24/17 06 :14; Admin Dose 40 MG; Start 01/20/17 at 06:00 Furosemide (Lasix) 20 mg DAILY PO Last administered on 01/24/17 10:01; Admin Dose 20 MG; Start 01/20/17 at 09:00 Simethicone (Mylicon) 80 mg Q6H PRN PO DISTENSION/GAS/BLOATING Last administered on 01/23/17 01:14; Admin Dose 80 MG; Start 01/19/17 at 20:30 Magnesium Hydroxide (Milk Of Mag) 30 ml DAILY PRN PO CONSTIPATION; Start at 20:30 Metoprolol Tartrate (Lopressor) 25 mg BID PO Last administered on 01/24/17 10: 11; Admin Dose 25 MG; Start 01/19/17 at 21:00 Enoxaparin Sodium (Lovenox) 40 mg DAILY SC Last administered on 01/24/17 10:20 ; Admin Dose 40 MG; Start 01/20/17 at 09:00 Benazepril HCl (Lotensin) 10 mg DAILY PO Last administered on 01/24/17 10:12; Admin Dose 10 MG; Start 01/20/17 at 09:00 Acetaminophen (Tylenol Tab) 650 mg Q6H PRN PO PAIN LEVEL 1-3 OR FEVER; Start at 20:30 Duloxetine HCl (Cymbalta) 20 mg DAILY PO Last administered on 01/24/17 09:58; Admin Dose 20 MG; Start 01/20/17 at 09:00 Gabapentin (Neurontin) 400 mg Q8 PO Last administered on 01/24/17 06:14; Admin Dose 400 MG; Start 01/20/17 at 06:00 Oxybutynin Chloride (Ditropan Xl) 5 mg DAILY PO Last administered on 01/24/17 09:58; Admin Dose 5 MG; Start 01/20/17 at 09:00 Aspirin (Aspirin) 81 mg DAILY PO Last administered on 01/24/17 09:58; Admin Dose 81 MG; Start 01/20/17 at 09:00 Hydroxychloroquine Sulfate (Plaquenil) 200 mg DAILY PO Last administered on 09:58; Admin Dose 200 MG; Start 01/20/17 at 09:00 Acetaminophen/ Hydrocodone Bitart ([place] (5/325)) 2 tab Q4H PRN PO MODERATE PAIN LEVEL 4-6 Last administered on 01/24/17 10:03; Admin Dose 2 TAB; Start at 13:00 Hydromorphone HCl (Dilaudid) 1 mg Q3H PRN IV PAIN Last administered on 07:27; Admin Dose 1 MG; Start 01/20/17 at 10:00 Cholecalciferol (Vitamin D) 2,000 unit DAILY PO Last administered on 01/24/17 09:58; Admin Dose 2,000 UNIT; Start 01/20/17 at 21:00 Calcium Carbonate 1.25 gm 1.25 gm BID PO Last administered on 01/24/17 10:12; Admin Dose 1.25 GM; Start 01/20/17 at 21:00 Meropenem/Sodium Chloride (Merrem 1 Gm/50 ml (Pmx)) 50 ml @ 100 mls/hr Q12 IVPB Last administered on 01/24/17 10:04; Admin Dose 100 MLS/HR; Start at 15:00; Stop 01/28/17 at 14:59 Docusate Sodium (Colace) 100 mg BID PO Last administered on 01/24/17 10:12; Admin Dose 100 MG; Start 01/22/17 at 09:00 Magnesium Hydroxide (Milk Of Mag) 30 ml BID PRN PO CONSTIPATION; Start at 22:30 Lactulose (Enulose) 20 gm DAILY PRN PO CONSTIPATION; Start 01/21/17 at 22:30 Senna (Senokot) 1 tab HS PO Last administered on 01/23/17 21:18; Admin Dose 1 TAB; Start 01/22/17 at 21:00 Bisacodyl (Dulcolax Supp) 10 mg DAILY PRN [place] CONSTIPATION; Start 01/21/17 at 22 :30 Guaifenesin/ Dextromethorphan (Robitussin Dm Liquid Cup) 10 ml Q4H PRN PO COUGH Last administered on 01/24/17 09:57; Admin Dose 10 ML; Start 01/23/17 at 12:00 Hydrocortisone (Procto-Priyank) 1 applic BID [place] ; Start 01/23/17 at 14:00 Assessment/Plan Additional Assessment/Plan Rehab-right intertrochanteric hip fracture, status post ORIF; Rheumatoid arthritis affecting multiple joints including bilateral shoulders with decreased range of motion. Overall patient improving despite pain. Continue interdisciplinary treatment plan Acute pain syndrome. Hypertension. Urinary tract infection. Anemia. Hypocalcemia. Hyperparathyroidism. Gastroesophageal reflux disease. Dyslipidemia. NAA MARSH MD Jan 24, 2017 11:34
--- NOTE | 2017-01-24 13:45 | CONS ---
Date/Time of Note Date/Time of Note DATE: 01/24/17 TIME: 13:44 Assessment/Plan Assessment/Plan Chief Complaint/Hosp Course 1. Right hip intertrochanteric fracture. s/p ORIF 01/14/2017. --Continue PT eval&tx 2. Essential hypertension. Stable. -Continue Metoprolol and Benazepril 3. ESBL urinary tract infection. -Patient has been on appropriate antibiotic for 7 day duration. 4. Iron deficiency anemia. Stable H&H. -Continue oral iron replacement 5. Hypocalcemia with possible hyperparathyroidism. -Continue oral replacement . Please note that patient has been evaluated by cigarette book maker regarding elevated PTH level. 6. Rheumatoid arthritis -Continue with pain control. 7. Debility -Continue with rehabilitation therapies. 8.GERD -Pepcid BID Case discussed with Dr. PIÑA Problems: Consultation Date/Type/Reason Admit Date/Time Jan 19, 2017 at 19:34 Initial Consult Date 01/20/17 Type of Consultation: Endocrinology Referring Provider: SERAFIN GARZA NP 24 HR Interval Summary Free Text/Dictation No overnight episodes. Exam/Review of Systems Vital Signs Vitals Vital Signs Date Time Temp Pulse Resp B/P Pulse Ox O2 Delivery O2 Flow Rate FiO2 01/24/17 02:00 97.8 77 18 118/62 95 01/22/17 08:00 Room Air Intake and Output 01/23/17 01/23/17 01/24/17 15:00 23:00 07:00 Intake Total 50 ml 590 ml 120 ml Balance 50 ml 590 ml 120 ml Exam General: Elderly female, not in any acute distress . HEENT: Normocephalic, Atraumatic, No laceration or hematoma; Eyes: PEERL, Conjunctiva clear, Anicteric sclera Neck: Supple without any lymphadenopathy, nontender, no JVD, no carotid bruits, trachea midline, no thyromegaly Cardiac: S1, S2 auscultated, regular rhythm and rate, no mumurs or gallop Pulmonary: Normal respiratory effort. Chest clear to auscultation bilaterally, no adventitious breath sounds GI: Abdomen normal to inspection. Soft, non tender, non- distended, no masses, no rebound tenderness or guarding. Bowel sounds active on all four quadrants Genitourinary: Deferred Extremities: Positive edema on right lower extremity. Right hip surgical site intact. No cyanosis, clubbing, or edema. Pulses [2+] bilaterally. Range of motion decreased on right lower extremity, otherwise intact on all other. No focal weakness appreciated. Neurologic: Alert to person, place, time, and situation. Affect appropriate, intact sensation. Skin: Clean,dry, and intact. No ecchymosis, no rashes, or lesions Results Result Diagram: 01/23/17 0646 01/24/17 0626 Results 24 hrs Laboratory Tests Test 01/24/17 06:26 01/24/17 11:12 Sodium Level 139 Potassium Level 4.1 Chloride Level 106 Carbon Dioxide Level 25 Anion Gap 12 Blood Urea Nitrogen 15 Creatinine 0.71 Glucose Level 94 Calcium Level 8.7 Total Bilirubin 0.5 Direct Bilirubin 0.00 Indirect Bilirubin 0.5 Aspartate Amino Transf (AST/SGOT) 24 Alanine Aminotransferase (ALT/SGPT) 29 Alkaline Phosphatase 90 Total Protein 5.9 L Albumin 3.0 L Globulin 2.90 Albumin/Globulin Ratio 1.03 Lab Scanned Report REFERENCE LAB Medications Medications Current Medications Ferrous Sulfate (Ferrous Sulfate (Ec)) 325 mg BID PO Last administered on 10:10; Admin Dose 325 MG; Start 01/19/17 at 21:00 Pantoprazole (Protonix Tab) 40 mg DAILY@06 PO Last administered on 01/24/17 06 :14; Admin Dose 40 MG; Start 01/20/17 at 06:00 Furosemide (Lasix) 20 mg DAILY PO Last administered on 01/24/17 10:01; Admin Dose 20 MG; Start 01/20/17 at 09:00 Simethicone (Mylicon) 80 mg Q6H PRN PO DISTENSION/GAS/BLOATING Last administered on 01/23/17 01:14; Admin Dose 80 MG; Start 01/19/17 at 20:30 Magnesium Hydroxide (Milk Of Mag) 30 ml DAILY PRN PO CONSTIPATION; Start at 20:30 Metoprolol Tartrate (Lopressor) 25 mg BID PO Last administered on 01/24/17 10: 11; Admin Dose 25 MG; Start 01/19/17 at 21:00 Enoxaparin Sodium (Lovenox) 40 mg DAILY SC Last administered on 01/24/17 10:20 ; Admin Dose 40 MG; Start 01/20/17 at 09:00 Benazepril HCl (Lotensin) 10 mg DAILY PO Last administered on 01/24/17 10:12; Admin Dose 10 MG; Start 01/20/17 at 09:00 Acetaminophen (Tylenol Tab) 650 mg Q6H PRN PO PAIN LEVEL 1-3 OR FEVER; Start at 20:30 Duloxetine HCl (Cymbalta) 20 mg DAILY PO Last administered on 01/24/17 09:58; Admin Dose 20 MG; Start 01/20/17 at 09:00 Gabapentin (Neurontin) 400 mg Q8 PO Last administered on 01/24/17 13:15; Admin Dose 400 MG; Start 01/20/17 at 06:00 Oxybutynin Chloride (Ditropan Xl) 5 mg DAILY PO Last administered on 01/24/17 09:58; Admin Dose 5 MG; Start 01/20/17 at 09:00 Aspirin (Aspirin) 81 mg DAILY PO Last administered on 01/24/17 09:58; Admin Dose 81 MG; Start 01/20/17 at 09:00 Hydroxychloroquine Sulfate (Plaquenil) 200 mg DAILY PO Last administered on 09:58; Admin Dose 200 MG; Start 01/20/17 at 09:00 Acetaminophen/ Hydrocodone Bitart ([place] (5/325)) 2 tab Q4H PRN PO MODERATE PAIN LEVEL 4-6 Last administered on 01/24/17 10:03; Admin Dose 2 TAB; Start at 13:00 Hydromorphone HCl (Dilaudid) 1 mg Q3H PRN IV PAIN Last administered on 13:15; Admin Dose 1 MG; Start 01/20/17 at 10:00 Cholecalciferol (Vitamin D) 2,000 unit DAILY PO Last administered on 01/24/17 09:58; Admin Dose 2,000 UNIT; Start 01/20/17 at 21:00 Calcium Carbonate 1.25 gm 1.25 gm BID PO Last administered on 01/24/17 10:12; Admin Dose 1.25 GM; Start 01/20/17 at 21:00 Meropenem/Sodium Chloride (Merrem 1 Gm/50 ml (Pmx)) 50 ml @ 100 mls/hr Q12 IVPB Last administered on 01/24/17 10:04; Admin Dose 100 MLS/HR; Start at 15:00; Stop 01/28/17 at 14:59 Docusate Sodium (Colace) 100 mg BID PO Last administered on 01/24/17 10:12; Admin Dose 100 MG; Start 01/22/17 at 09:00 Magnesium Hydroxide (Milk Of Mag) 30 ml BID PRN PO CONSTIPATION; Start at 22:30 Lactulose (Enulose) 20 gm DAILY PRN PO CONSTIPATION; Start 01/21/17 at 22:30 Senna (Senokot) 1 tab HS PO Last administered on 01/23/17 21:18; Admin Dose 1 TAB; Start 01/22/17 at 21:00 Bisacodyl (Dulcolax Supp) 10 mg DAILY PRN [place] CONSTIPATION; Start 01/21/17 at 22 :30 Guaifenesin/ Dextromethorphan (Robitussin Dm Liquid Cup) 10 ml Q4H PRN PO COUGH Last administered on 01/24/17 09:57; Admin Dose 10 ML; Start 01/23/17 at 12:00 Hydrocortisone (Procto-Priyank) 1 applic BID [place] ; Start 01/23/17 at 14:00 SERAFIN GARZA NP Jan 24, 2017 13:45
[2017-01-24 20:00] VITALS: BP 145/67; RESP 18
[2017-01-24] MEDS: FAMOTIDINE 20 MG TAB PO SCH (20:29)
[2017-01-24] MEDS: SENNA TAB PO SCH (20:29)
[2017-01-25 01:45] VITALS: BP 116/58; RESP 18
[2017-01-25] MEDS: GABAPENTIN 400 MG CAP PO SCH ×3 (05:33→20:34)
[2017-01-25 07:38] VITALS: BP 151/82; RESP 18
[2017-01-25] MEDS: HYDROmorphONE 1 MG/ML SYG IV PRN ×4 (07:51→21:39)
[2017-01-25] MEDS: DULOXETINE 20 MG CAP DR PO SCH (08:52)
[2017-01-25] MEDS: CALCIUM CARBONATE 1.25 GM TAB PO SCH ×2 (08:52→20:29)
[2017-01-25] MEDS: HYDROXYCHLOROQUINE 200 MG TAB PO SCH (08:52)
[2017-01-25] MEDS: CHOLECALCIFEROL 2,000 UNIT CAP PO SCH (08:52)
[2017-01-25] MEDS: OXYBUTYNIN (XL) 5 MG TAB PO SCH (08:52)
[2017-01-25] MEDS: FERROUS SULFATE (EC) 325 MG TAB PO SCH ×2 (08:52→20:29)
[2017-01-25] MEDS: ASPIRIN 81 MG TAB PO SCH (08:52)
[2017-01-25] MEDS: BENAZEPRIL 10 MG TAB PO SCH (08:53)
[2017-01-25] MEDS: METOPROLOL 25 MG TAB PO SCH ×2 (08:53→20:29)
[2017-01-25] MEDS: FUROSEMIDE 20 MG TAB PO SCH (08:53)
[2017-01-25] MEDS: MEROPENEM 1 GM/50ML(PMX) 50 ML IVPB SCH ×2 (08:54→19:20)
[2017-01-25] MEDS: ENOXAPARIN 40 MG/0.4 ML SYG SC SCH (09:24)
[2017-01-25] MEDS: HYDROCODONE/APAP (5/325) TAB PO PRN (09:56)
[2017-01-25] MEDS: GUAIFENESIN/DM 5ML CUP PO PRN (09:56)
[2017-01-25] MEDS: DOCUSATE SODIUM 100 MG CAP PO SCH ×2 (09:56→20:29)
[2017-01-25] MEDS: HYDROCORTISONE PR SCH ×2 (09:57→20:30)
--- NOTE | 2017-01-25 12:17 | CONS ---
Date/Time of Note Date/Time of Note DATE: 01/25/17 TIME: 12:16 Consult Date/Type/Reason Admit Date/Time Jan 19, 2017 at 19:34 Initial Consult Date 01/20/17 Type of Consultation: Endocrinology Ordering Provider: SERAFIN GARZA NP Subjective Comfortable Objective Lungs clear abdomen soft Moderate assist transfer Vital Signs Date Time Temp Pulse Resp B/P Pulse Ox O2 Delivery O2 Flow Rate FiO2 01/25/17 07:38 98.1 81 18 151/82 95 01/22/17 08:00 Room Air Intake and Output 01/24/17 01/24/17 01/25/17 14:59 22:59 06:59 Intake Total 770 ml 570 ml 200 ml Output Total 420 ml Balance 770 ml 570 ml -220 ml Results/Medications Result Diagram: 01/23/17 0646 01/24/17 0626 Medications Current Medications Ferrous Sulfate (Ferrous Sulfate (Ec)) 325 mg BID PO Last administered on 08:52; Admin Dose 325 MG; Start 01/19/17 at 21:00 Furosemide (Lasix) 20 mg DAILY PO Last administered on 01/25/17 08:53; Admin Dose 20 MG; Start 01/20/17 at 09:00 Simethicone (Mylicon) 80 mg Q6H PRN PO DISTENSION/GAS/BLOATING Last administered on 01/23/17 01:14; Admin Dose 80 MG; Start 01/19/17 at 20:30 Magnesium Hydroxide (Milk Of Mag) 30 ml DAILY PRN PO CONSTIPATION; Start at 20:30 Metoprolol Tartrate (Lopressor) 25 mg BID PO Last administered on 01/25/17 08: 53; Admin Dose 25 MG; Start 01/19/17 at 21:00 Enoxaparin Sodium (Lovenox) 40 mg DAILY SC Last administered on 01/25/17 09:24 ; Admin Dose 40 MG; Start 01/20/17 at 09:00 Benazepril HCl (Lotensin) 10 mg DAILY PO Last administered on 01/25/17 08:53; Admin Dose 10 MG; Start 01/20/17 at 09:00 Acetaminophen (Tylenol Tab) 650 mg Q6H PRN PO PAIN LEVEL 1-3 OR FEVER; Start at 20:30 Duloxetine HCl (Cymbalta) 20 mg DAILY PO Last administered on 01/25/17 08:52; Admin Dose 20 MG; Start 01/20/17 at 09:00 Gabapentin (Neurontin) 400 mg Q8 PO Last administered on 01/25/17 05:33; Admin Dose 400 MG; Start 01/20/17 at 06:00 Oxybutynin Chloride (Ditropan Xl) 5 mg DAILY PO Last administered on 01/25/17 08:52; Admin Dose 5 MG; Start 01/20/17 at 09:00 Aspirin (Aspirin) 81 mg DAILY PO Last administered on 01/25/17 08:52; Admin Dose 81 MG; Start 01/20/17 at 09:00 Hydroxychloroquine Sulfate (Plaquenil) 200 mg DAILY PO Last administered on 08:52; Admin Dose 200 MG; Start 01/20/17 at 09:00 Acetaminophen/ Hydrocodone Bitart ([place] (5/325)) 2 tab Q4H PRN PO MODERATE PAIN LEVEL 4-6 Last administered on 01/25/17 09:56; Admin Dose 2 TAB; Start at 13:00 Hydromorphone HCl (Dilaudid) 1 mg Q3H PRN IV PAIN Last administered on 07:51; Admin Dose 1 MG; Start 01/20/17 at 10:00 Cholecalciferol (Vitamin D) 2,000 unit DAILY PO Last administered on 01/25/17 08:52; Admin Dose 2,000 UNIT; Start 01/20/17 at 21:00 Calcium Carbonate 1.25 gm 1.25 gm BID PO Last administered on 01/25/17 08:52; Admin Dose 1.25 GM; Start 01/20/17 at 21:00 Meropenem/Sodium Chloride (Merrem 1 Gm/50 ml (Pmx)) 50 ml @ 100 mls/hr Q12 IVPB Last administered on 01/25/17 08:54; Admin Dose 100 MLS/HR; Start at 15:00; Stop 01/28/17 at 14:59 Docusate Sodium (Colace) 100 mg BID PO Last administered on 01/25/17 09:56; Admin Dose 100 MG; Start 01/22/17 at 09:00 Magnesium Hydroxide (Milk Of Mag) 30 ml BID PRN PO CONSTIPATION; Start at 22:30 Lactulose (Enulose) 20 gm DAILY PRN PO CONSTIPATION; Start 01/21/17 at 22:30 Senna (Senokot) 1 tab HS PO Last administered on 01/24/17 20:29; Admin Dose 1 TAB; Start 01/22/17 at 21:00 Bisacodyl (Dulcolax Supp) 10 mg DAILY PRN [place] CONSTIPATION; Start 01/21/17 at 22 :30 Guaifenesin/ Dextromethorphan (Robitussin Dm Liquid Cup) 10 ml Q4H PRN PO COUGH Last administered on 01/25/17 09:56; Admin Dose 10 ML; Start 01/23/17 at 12:00 Hydrocortisone (Procto-Priyank) 1 applic BID [place] Last administered on 01/25/17 09: 57; Admin Dose 1 APPLIC; Start 01/23/17 at 14:00 Famotidine (Pepcid) 20 mg Q24H PO Last administered on 01/24/17 20:29; Admin Dose 20 MG; Start 01/24/17 at 21:00 Assessment/Plan Additional Assessment/Plan Rehab-right intertrochanteric hip fracture, status post ORIF; Rheumatoid arthritis affecting multiple joints including bilateral shoulders with decreased range of motion. Continue current therapy program Acute pain syndrome-improving Hypertension. Urinary tract infection. Anemia. Hypocalcemia. Hyperparathyroidism. Gastroesophageal reflux disease. Dyslipidemia. NAA MARSH MD Jan 25, 2017 12:16
--- NOTE | 2017-01-25 13:33 | CONS ---
Date/Time of Note Date/Time of Note DATE: 01/25/17 TIME: 13:30 Assessment/Plan Assessment/Plan Chief Complaint/Hosp Course 1. Right hip intertrochanteric fracture. s/p ORIF 01/14/2017. --Continue PT eval&tx 2. Essential hypertension. Stable. -Continue Metoprolol and Benazepril 3. ESBL urinary tract infection. -Patient has been on appropriate antibiotic for 7 day duration. 4. Iron deficiency anemia. Stable H&H. -Continue oral iron replacement 5. Hypocalcemia with possible hyperparathyroidism. -Continue oral replacement . Please note that patient has been evaluated by child daycare worker regarding elevated PTH level. 6. Rheumatoid arthritis -Continue with pain control. 7. Debility -Continue with rehabilitation therapies. 8.GERD -Pepcid BID Patient reports having lack of support and help upon discharge at home. We will request a administrator social welfare consult. Case discussed with Dr. PIÑA Problems: Consultation Date/Type/Reason Admit Date/Time Jan 19, 2017 at 19:34 Initial Consult Date 01/20/17 Type of Consultation: Internal medicine Referring Provider: NAA MARSH MD 24 HR Interval Summary Free Text/Dictation Patient has been participating in physical therapy. Remains afebrile. Denies any dysuria or urinary discomfort. Exam/Review of Systems Vital Signs Vitals Vital Signs Date Time Temp Pulse Resp B/P Pulse Ox O2 Delivery O2 Flow Rate FiO2 01/25/17 07:38 98.1 81 18 151/82 95 01/22/17 08:00 Room Air Intake and Output 01/24/17 01/24/17 01/25/17 14:59 22:59 06:59 Intake Total 770 ml 570 ml 200 ml Output Total 420 ml Balance 770 ml 570 ml -220 ml Exam General: Elderly female, not in any acute distress . HEENT: Normocephalic, Atraumatic, No laceration or hematoma; Eyes: PEERL, Conjunctiva clear, Anicteric sclera Neck: Supple without any lymphadenopathy, nontender, no JVD, no carotid bruits, trachea midline, no thyromegaly Cardiac: S1, S2 auscultated, regular rhythm and rate, no mumurs or gallop Pulmonary: Normal respiratory effort. Chest clear to auscultation bilaterally, no adventitious breath sounds GI: Abdomen normal to inspection. Soft, non tender, non- distended, no masses, no rebound tenderness or guarding. Bowel sounds active on all four quadrants Genitourinary: Deferred Extremities: Positive edema on right lower extremity. Right hip surgical site intact. No cyanosis, clubbing, or edema. Pulses [2+] bilaterally. Range of motion decreased on right lower extremity, otherwise intact on all other. No focal weakness appreciated. Neurologic: Alert to person, place, time, and situation. Affect appropriate, intact sensation. Skin: Clean,dry, and intact. No ecchymosis, no rashes, or lesions Results Result Diagram: 01/23/17 0646 01/24/17 0626 Medications Medications Current Medications Ferrous Sulfate (Ferrous Sulfate (Ec)) 325 mg BID PO Last administered on 08:52; Admin Dose 325 MG; Start 01/19/17 at 21:00 Furosemide (Lasix) 20 mg DAILY PO Last administered on 01/25/17 08:53; Admin Dose 20 MG; Start 01/20/17 at 09:00 Simethicone (Mylicon) 80 mg Q6H PRN PO DISTENSION/GAS/BLOATING Last administered on 01/23/17 01:14; Admin Dose 80 MG; Start 01/19/17 at 20:30 Magnesium Hydroxide (Milk Of Mag) 30 ml DAILY PRN PO CONSTIPATION; Start at 20:30 Metoprolol Tartrate (Lopressor) 25 mg BID PO Last administered on 01/25/17 08: 53; Admin Dose 25 MG; Start 01/19/17 at 21:00 Enoxaparin Sodium (Lovenox) 40 mg DAILY SC Last administered on 01/25/17 09:24 ; Admin Dose 40 MG; Start 01/20/17 at 09:00 Benazepril HCl (Lotensin) 10 mg DAILY PO Last administered on 01/25/17 08:53; Admin Dose 10 MG; Start 01/20/17 at 09:00 Acetaminophen (Tylenol Tab) 650 mg Q6H PRN PO PAIN LEVEL 1-3 OR FEVER; Start at 20:30 Duloxetine HCl (Cymbalta) 20 mg DAILY PO Last administered on 01/25/17 08:52; Admin Dose 20 MG; Start 01/20/17 at 09:00 Gabapentin (Neurontin) 400 mg Q8 PO Last administered on 01/25/17 05:33; Admin Dose 400 MG; Start 01/20/17 at 06:00 Oxybutynin Chloride (Ditropan Xl) 5 mg DAILY PO Last administered on 01/25/17 08:52; Admin Dose 5 MG; Start 01/20/17 at 09:00 Aspirin (Aspirin) 81 mg DAILY PO Last administered on 01/25/17 08:52; Admin Dose 81 MG; Start 01/20/17 at 09:00 Hydroxychloroquine Sulfate (Plaquenil) 200 mg DAILY PO Last administered on 08:52; Admin Dose 200 MG; Start 01/20/17 at 09:00 Acetaminophen/ Hydrocodone Bitart ([place] (5/325)) 2 tab Q4H PRN PO MODERATE PAIN LEVEL 4-6 Last administered on 01/25/17 09:56; Admin Dose 2 TAB; Start at 13:00 Hydromorphone HCl (Dilaudid) 1 mg Q3H PRN IV PAIN Last administered on 07:51; Admin Dose 1 MG; Start 01/20/17 at 10:00 Cholecalciferol (Vitamin D) 2,000 unit DAILY PO Last administered on 01/25/17 08:52; Admin Dose 2,000 UNIT; Start 01/20/17 at 21:00 Calcium Carbonate 1.25 gm 1.25 gm BID PO Last administered on 01/25/17 08:52; Admin Dose 1.25 GM; Start 01/20/17 at 21:00 Meropenem/Sodium Chloride (Merrem 1 Gm/50 ml (Pmx)) 50 ml @ 100 mls/hr Q12 IVPB Last administered on 01/25/17 08:54; Admin Dose 100 MLS/HR; Start at 15:00; Stop 01/28/17 at 14:59 Docusate Sodium (Colace) 100 mg BID PO Last administered on 01/25/17 09:56; Admin Dose 100 MG; Start 01/22/17 at 09:00 Magnesium Hydroxide (Milk Of Mag) 30 ml BID PRN PO CONSTIPATION; Start at 22:30 Lactulose (Enulose) 20 gm DAILY PRN PO CONSTIPATION; Start 01/21/17 at 22:30 Senna (Senokot) 1 tab HS PO Last administered on 01/24/17 20:29; Admin Dose 1 TAB; Start 01/22/17 at 21:00 Bisacodyl (Dulcolax Supp) 10 mg DAILY PRN [place] CONSTIPATION; Start 01/21/17 at 22 :30 Guaifenesin/ Dextromethorphan (Robitussin Dm Liquid Cup) 10 ml Q4H PRN PO COUGH Last administered on 01/25/17 09:56; Admin Dose 10 ML; Start 01/23/17 at 12:00 Hydrocortisone (Procto-Priyank) 1 applic BID [place] Last administered on 01/25/17 09: 57; Admin Dose 1 APPLIC; Start 01/23/17 at 14:00 Famotidine (Pepcid) 20 mg Q24H PO Last administered on 01/24/17 20:29; Admin Dose 20 MG; Start 01/24/17 at 21:00 SERAFIN GARZA NP Jan 25, 2017 13:32
[2017-01-25 20:00] VITALS: BP 122/62; RESP 18
[2017-01-25] MEDS: SENNA TAB PO SCH (20:29)
[2017-01-25] MEDS: FAMOTIDINE 20 MG TAB PO SCH (20:29)
[2017-01-26 02:00] VITALS: BP 128/60; RESP 18
[2017-01-26] MEDS: GABAPENTIN 400 MG CAP PO SCH ×3 (06:24→21:17)
[2017-01-26 07:30] VITALS: BP 152/65; RESP 18
[2017-01-26] MEDS: HYDROmorphONE 1 MG/ML SYG IV PRN ×5 (08:04→22:08)
[2017-01-26] MEDS: ENOXAPARIN 40 MG/0.4 ML SYG SC SCH (08:05)
[2017-01-26] MEDS: BENAZEPRIL 10 MG TAB PO SCH (09:00)
[2017-01-26] MEDS: METOPROLOL 25 MG TAB PO SCH ×2 (09:00→21:18)
[2017-01-26] MEDS: OXYBUTYNIN (XL) 5 MG TAB PO SCH (09:00)
[2017-01-26] MEDS: HYDROXYCHLOROQUINE 200 MG TAB PO SCH (09:00)
[2017-01-26] MEDS: HYDROCORTISONE PR SCH ×2 (09:00→21:00)
[2017-01-26] MEDS: FUROSEMIDE 20 MG TAB PO SCH (09:00)
[2017-01-26] MEDS: DULOXETINE 20 MG CAP DR PO SCH (09:00)
[2017-01-26] MEDS: MEROPENEM 1 GM/50ML(PMX) 50 ML IVPB SCH ×2 (10:00→21:17)
[2017-01-26] MEDS: ASPIRIN 81 MG TAB PO SCH (10:00)
[2017-01-26] MEDS: DOCUSATE SODIUM 100 MG CAP PO SCH ×2 (10:01→21:17)
[2017-01-26] MEDS: CALCIUM CARBONATE 1.25 GM TAB PO SCH ×2 (10:01→21:17)
[2017-01-26] MEDS: CHOLECALCIFEROL 2,000 UNIT CAP PO SCH (10:01)
[2017-01-26] MEDS: FERROUS SULFATE (EC) 325 MG TAB PO SCH ×2 (10:01→21:17)
[2017-01-26] MEDS: HYDROCODONE/APAP (5/325) TAB PO PRN (10:05)
[2017-01-26] MEDS: GUAIFENESIN/DM 5ML CUP PO PRN (11:54)
--- NOTE | 2017-01-26 12:29 | CONS ---
Date/Time of Note Date/Time of Note DATE: 01/26/17 TIME: 12:26 Consult Date/Type/Reason Admit Date/Time Jan 19, 2017 at 19:34 Initial Consult Date 01/20/17 Type of Consultation: Internal medicine Ordering Provider: NAA MARSH MD Subjective Patient still with pain Objective Lungs clear abdomen soft Mod max transfer Moderate assist 20 feet Vital Signs Date Time Temp Pulse Resp B/P Pulse Ox O2 Delivery O2 Flow Rate FiO2 01/26/17 07:30 98.7 63 18 152/65 97 01/22/17 08:00 Room Air Intake and Output 01/25/17 01/25/17 01/26/17 15:00 23:00 07:00 Intake Total 720 ml 360 ml 700 ml Balance 720 ml 360 ml 700 ml Results/Medications Result Diagram: 01/23/17 0646 01/24/17 0626 Medications Current Medications Ferrous Sulfate (Ferrous Sulfate (Ec)) 325 mg BID PO Last administered on 10:01; Admin Dose 325 MG; Start 01/19/17 at 21:00 Furosemide (Lasix) 20 mg DAILY PO Last administered on 01/25/17 08:53; Admin Dose 20 MG; Start 01/20/17 at 09:00 Simethicone (Mylicon) 80 mg Q6H PRN PO DISTENSION/GAS/BLOATING Last administered on 01/26/17 11:46; Admin Dose 80 MG; Start 01/19/17 at 20:30 Magnesium Hydroxide (Milk Of Mag) 30 ml DAILY PRN PO CONSTIPATION; Start at 20:30 Metoprolol Tartrate (Lopressor) 25 mg BID PO Last administered on 01/25/17 20: 29; Admin Dose 25 MG; Start 01/19/17 at 21:00 Enoxaparin Sodium (Lovenox) 40 mg DAILY SC Last administered on 01/26/17 08:05 ; Admin Dose 40 MG; Start 01/20/17 at 09:00 Benazepril HCl (Lotensin) 10 mg DAILY PO Last administered on 01/25/17 08:53; Admin Dose 10 MG; Start 01/20/17 at 09:00 Acetaminophen (Tylenol Tab) 650 mg Q6H PRN PO PAIN LEVEL 1-3 OR FEVER; Start at 20:30 Duloxetine HCl (Cymbalta) 20 mg DAILY PO Last administered on 01/25/17 08:52; Admin Dose 20 MG; Start 01/20/17 at 09:00 Gabapentin (Neurontin) 400 mg Q8 PO Last administered on 01/26/17 06:24; Admin Dose 400 MG; Start 01/20/17 at 06:00 Oxybutynin Chloride (Ditropan Xl) 5 mg DAILY PO Last administered on 01/25/17 08:52; Admin Dose 5 MG; Start 01/20/17 at 09:00 Aspirin (Aspirin) 81 mg DAILY PO Last administered on 01/26/17 10:00; Admin Dose 81 MG; Start 01/20/17 at 09:00 Hydroxychloroquine Sulfate (Plaquenil) 200 mg DAILY PO Last administered on 08:52; Admin Dose 200 MG; Start 01/20/17 at 09:00 Acetaminophen/ Hydrocodone Bitart ([place] (5/325)) 2 tab Q4H PRN PO MODERATE PAIN LEVEL 4-6 Last administered on 01/26/17 10:05; Admin Dose 2 TAB; Start at 13:00 Hydromorphone HCl (Dilaudid) 1 mg Q3H PRN IV PAIN Last administered on 11:46; Admin Dose 1 MG; Start 01/20/17 at 10:00 Cholecalciferol (Vitamin D) 2,000 unit DAILY PO Last administered on 01/26/17 10:01; Admin Dose 2,000 UNIT; Start 01/20/17 at 21:00 Calcium Carbonate 1.25 gm 1.25 gm BID PO Last administered on 01/26/17 10:01; Admin Dose 1.25 GM; Start 01/20/17 at 21:00 Meropenem/Sodium Chloride (Merrem 1 Gm/50 ml (Pmx)) 50 ml @ 100 mls/hr Q12 IVPB Last administered on 01/26/17 10:00; Admin Dose 100 MLS/HR; Start at 15:00; Stop 01/28/17 at 14:59 Docusate Sodium (Colace) 100 mg BID PO Last administered on 01/26/17 10:01; Admin Dose 100 MG; Start 01/22/17 at 09:00 Magnesium Hydroxide (Milk Of Mag) 30 ml BID PRN PO CONSTIPATION; Start at 22:30 Lactulose (Enulose) 20 gm DAILY PRN PO CONSTIPATION; Start 01/21/17 at 22:30 Senna (Senokot) 1 tab HS PO Last administered on 01/25/17 20:29; Admin Dose 1 TAB; Start 01/22/17 at 21:00 Bisacodyl (Dulcolax Supp) 10 mg DAILY PRN [place] CONSTIPATION; Start 01/21/17 at 22 :30 Guaifenesin/ Dextromethorphan (Robitussin Dm Liquid Cup) 10 ml Q4H PRN PO COUGH Last administered on 01/26/17 11:54; Admin Dose 10 ML; Start 01/23/17 at 12:00 Hydrocortisone (Procto-Priyank) 1 applic BID [place] Last administered on 01/25/17 20: 30; Admin Dose 1 APPLIC; Start 01/23/17 at 14:00 Famotidine (Pepcid) 20 mg Q24H PO Last administered on 01/25/17 20:29; Admin Dose 20 MG; Start 01/24/17 at 21:00 Assessment/Plan Additional Assessment/Plan Rehab-right intertrochanteric hip fracture, status post ORIF; Rheumatoid arthritis affecting multiple joints including bilateral shoulders with decreased range of motion. Continue current therapy activities Acute pain syndrome-improving Hypertension. Urinary tract infection. Anemia. Hypocalcemia. Hyperparathyroidism. Gastroesophageal reflux disease. Dyslipidemia. NAA MARSH MD Jan 26, 2017 12:29
--- NOTE | 2017-01-26 14:40 | CONS ---
Date/Time of Note Date/Time of Note DATE: 01/26/17 TIME: 14:39 Assessment/Plan Assessment/Plan Chief Complaint/Hosp Course 1. Right hip intertrochanteric fracture. s/p ORIF 01/14/2017. --Continue PT eval&tx 2. Essential hypertension. Stable. -Continue Metoprolol and Benazepril 3. ESBL urinary tract infection. -Patient has been on appropriate antibiotic for 7 day duration. 4. Iron deficiency anemia. Stable H&H. -Continue oral iron replacement 5. Hypocalcemia with possible hyperparathyroidism. -Continue oral replacement . Please note that patient has been evaluated by client services account manager regarding elevated PTH level. 6. Rheumatoid arthritis -Continue with pain control. 7. Debility -Continue with rehabilitation therapies. 8.GERD -Pepcid Patient reports having lack of support and help upon discharge at home. Pending harm reduction worker evaluation. Case discussed with Dr. PIÑA Problems: Consultation Date/Type/Reason Admit Date/Time Jan 19, 2017 at 19:34 Initial Consult Date 01/20/17 Type of Consultation: Internal medicine Referring Provider: NAA MARSH MD 24 HR Interval Summary Free Text/Dictation Patient with no acute episodes. Participating in physical therapy. Exam/Review of Systems Vital Signs Vitals Vital Signs Date Time Temp Pulse Resp B/P Pulse Ox O2 Delivery O2 Flow Rate FiO2 01/26/17 07:30 98.7 63 18 152/65 97 01/22/17 08:00 Room Air Intake and Output 01/25/17 01/25/17 01/26/17 15:00 23:00 07:00 Intake Total 720 ml 360 ml 700 ml Balance 720 ml 360 ml 700 ml Exam General: Elderly female, not in any acute distress . HEENT: Normocephalic, Atraumatic, No laceration or hematoma; Eyes: PEERL, Conjunctiva clear, Anicteric sclera Neck: Supple without any lymphadenopathy, nontender, no JVD, no carotid bruits, trachea midline, no thyromegaly Cardiac: S1, S2 auscultated, regular rhythm and rate, no mumurs or gallop Pulmonary: Normal respiratory effort. Chest clear to auscultation bilaterally, no adventitious breath sounds GI: Abdomen normal to inspection. Soft, non tender, non- distended, no masses, no rebound tenderness or guarding. Bowel sounds active on all four quadrants Genitourinary: Deferred Extremities: Positive edema on right lower extremity. Right hip surgical site intact. No cyanosis, clubbing, or edema. Pulses [2+] bilaterally. Range of motion decreased on right lower extremity, otherwise intact on all other. No focal weakness appreciated. Neurologic: Alert to person, place, time, and situation. Affect appropriate, intact sensation. Skin: Clean,dry, and intact. No ecchymosis, no rashes, or lesions Results Result Diagram: 01/23/17 0646 01/24/17 0626 Medications Medications Current Medications Ferrous Sulfate (Ferrous Sulfate (Ec)) 325 mg BID PO Last administered on 10:01; Admin Dose 325 MG; Start 01/19/17 at 21:00 Furosemide (Lasix) 20 mg DAILY PO Last administered on 01/25/17 08:53; Admin Dose 20 MG; Start 01/20/17 at 09:00 Simethicone (Mylicon) 80 mg Q6H PRN PO DISTENSION/GAS/BLOATING Last administered on 01/26/17 11:46; Admin Dose 80 MG; Start 01/19/17 at 20:30 Magnesium Hydroxide (Milk Of Mag) 30 ml DAILY PRN PO CONSTIPATION; Start at 20:30 Metoprolol Tartrate (Lopressor) 25 mg BID PO Last administered on 01/25/17 20: 29; Admin Dose 25 MG; Start 01/19/17 at 21:00 Enoxaparin Sodium (Lovenox) 40 mg DAILY SC Last administered on 01/26/17 08:05 ; Admin Dose 40 MG; Start 01/20/17 at 09:00 Benazepril HCl (Lotensin) 10 mg DAILY PO Last administered on 01/25/17 08:53; Admin Dose 10 MG; Start 01/20/17 at 09:00 Acetaminophen (Tylenol Tab) 650 mg Q6H PRN PO PAIN LEVEL 1-3 OR FEVER; Start at 20:30 Duloxetine HCl (Cymbalta) 20 mg DAILY PO Last administered on 01/25/17 08:52; Admin Dose 20 MG; Start 01/20/17 at 09:00 Gabapentin (Neurontin) 400 mg Q8 PO Last administered on 01/26/17 06:24; Admin Dose 400 MG; Start 01/20/17 at 06:00 Oxybutynin Chloride (Ditropan Xl) 5 mg DAILY PO Last administered on 01/25/17 08:52; Admin Dose 5 MG; Start 01/20/17 at 09:00 Aspirin (Aspirin) 81 mg DAILY PO Last administered on 01/26/17 10:00; Admin Dose 81 MG; Start 01/20/17 at 09:00 Hydroxychloroquine Sulfate (Plaquenil) 200 mg DAILY PO Last administered on 08:52; Admin Dose 200 MG; Start 01/20/17 at 09:00 Acetaminophen/ Hydrocodone Bitart ([place] (5/325)) 2 tab Q4H PRN PO MODERATE PAIN LEVEL 4-6 Last administered on 01/26/17 10:05; Admin Dose 2 TAB; Start at 13:00 Hydromorphone HCl (Dilaudid) 1 mg Q3H PRN IV PAIN Last administered on 11:46; Admin Dose 1 MG; Start 01/20/17 at 10:00 Cholecalciferol (Vitamin D) 2,000 unit DAILY PO Last administered on 01/26/17 10:01; Admin Dose 2,000 UNIT; Start 01/20/17 at 21:00 Calcium Carbonate 1.25 gm 1.25 gm BID PO Last administered on 01/26/17 10:01; Admin Dose 1.25 GM; Start 01/20/17 at 21:00 Meropenem/Sodium Chloride (Merrem 1 Gm/50 ml (Pmx)) 50 ml @ 100 mls/hr Q12 IVPB Last administered on 01/26/17 10:00; Admin Dose 100 MLS/HR; Start at 15:00; Stop 01/28/17 at 14:59 Docusate Sodium (Colace) 100 mg BID PO Last administered on 01/26/17 10:01; Admin Dose 100 MG; Start 01/22/17 at 09:00 Magnesium Hydroxide (Milk Of Mag) 30 ml BID PRN PO CONSTIPATION; Start at 22:30 Lactulose (Enulose) 20 gm DAILY PRN PO CONSTIPATION; Start 01/21/17 at 22:30 Senna (Senokot) 1 tab HS PO Last administered on 01/25/17 20:29; Admin Dose 1 TAB; Start 01/22/17 at 21:00 Bisacodyl (Dulcolax Supp) 10 mg DAILY PRN [place] CONSTIPATION; Start 01/21/17 at 22 :30 Guaifenesin/ Dextromethorphan (Robitussin Dm Liquid Cup) 10 ml Q4H PRN PO COUGH Last administered on 01/26/17 11:54; Admin Dose 10 ML; Start 01/23/17 at 12:00 Hydrocortisone (Procto-Priyank) 1 applic BID [place] Last administered on 01/25/17 20: 30; Admin Dose 1 APPLIC; Start 01/23/17 at 14:00 Famotidine (Pepcid) 20 mg Q24H PO Last administered on 01/25/17 20:29; Admin Dose 20 MG; Start 01/24/17 at 21:00 SERAFIN GARZA NP Jan 26, 2017 14:40
[2017-01-26 20:43] VITALS: BP 144/63; RESP 18
[2017-01-26] MEDS: SENNA TAB PO SCH (21:17)
[2017-01-26] MEDS: FAMOTIDINE 20 MG TAB PO SCH (21:17)
[2017-01-27 02:13] VITALS: BP 139/68; RESP 18
[2017-01-27] MEDS: HYDROmorphONE 1 MG/ML SYG IV PRN ×3 (05:54→12:13)
[2017-01-27] MEDS: GABAPENTIN 400 MG CAP PO SCH ×3 (05:55→22:01)
[2017-01-27 07:41] VITALS: BP 140/65; RESP 18
--- NOTE | 2017-01-27 07:59 | CONS ---
Date/Time of Note Date/Time of Note DATE: 01/27/17 TIME: 07:58 Assessment/Plan Assessment/Plan Chief Complaint/Hosp Course 1. Right hip intertrochanteric fracture. s/p ORIF 01/14/2017. --Continue PT eval&tx 2. Essential hypertension. Stable. -Continue Metoprolol and Benazepril 3. ESBL urinary tract infection. -Patient has been on appropriate antibiotic for 7 day duration. 4. Iron deficiency anemia. Stable H&H. -Continue oral iron replacement 5. Hypocalcemia with possible hyperparathyroidism. -Continue oral replacement . 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 6. Rheumatoid arthritis -Continue with pain control. 7. Debility -Continue with rehabilitation therapies. 8.GERD -Pepcid Patient reports having lack of support and help upon discharge at home. Pending social studies teacher evaluation. Case discussed with Dr. PIÑA Problems: Consultation Date/Type/Reason Admit Date/Time Jan 19, 2017 at 19:34 Initial Consult Date 01/20/17 Type of Consultation: Internal medicine Referring Provider: NAA MARSH MD 24 HR Interval Summary Free Text/Dictation No acute overnight episodes. Exam/Review of Systems Vital Signs Vitals Vital Signs Date Time Temp Pulse Resp B/P Pulse Ox O2 Delivery O2 Flow Rate FiO2 01/27/17 07:41 98.3 70 18 140/65 95 Intake and Output 01/26/17 01/26/17 01/27/17 15:00 23:00 07:00 Intake Total 50 ml 730 ml 750 ml Balance 50 ml 730 ml 750 ml Exam General: Elderly female, not in any acute distress . HEENT: Normocephalic, Atraumatic, No laceration or hematoma; Eyes: PEERL, Conjunctiva clear, Anicteric sclera Neck: Supple without any lymphadenopathy, nontender, no JVD, no carotid bruits, trachea midline, no thyromegaly Cardiac: S1, S2 auscultated, regular rhythm and rate, no mumurs or gallop Pulmonary: Normal respiratory effort. Chest clear to auscultation bilaterally, no adventitious breath sounds GI: Abdomen normal to inspection. Soft, non tender, non- distended, no masses, no rebound tenderness or guarding. Bowel sounds active on all four quadrants Genitourinary: Deferred Extremities: Positive edema on right lower extremity-improved. Right hip surgical site intact. No cyanosis, clubbing, or edema. Pulses [2+] bilaterally. Range of motion decreased on right lower extremity, otherwise intact on all other. No focal weakness appreciated. Neurologic: Alert to person, place, time, and situation. Affect appropriate, intact sensation. Skin: Clean,dry, and intact. No ecchymosis, no rashes, or lesions Results Result Diagram: 01/23/17 0646 01/24/17 0626 Medications Medications Current Medications Ferrous Sulfate (Ferrous Sulfate (Ec)) 325 mg BID PO Last administered on 21:17; Admin Dose 325 MG; Start 01/19/17 at 21:00 Furosemide (Lasix) 20 mg DAILY PO Last administered on 01/25/17 08:53; Admin Dose 20 MG; Start 01/20/17 at 09:00 Simethicone (Mylicon) 80 mg Q6H PRN PO DISTENSION/GAS/BLOATING Last administered on 01/26/17 11:46; Admin Dose 80 MG; Start 01/19/17 at 20:30 Magnesium Hydroxide (Milk Of Mag) 30 ml DAILY PRN PO CONSTIPATION; Start at 20:30 Metoprolol Tartrate (Lopressor) 25 mg BID PO Last administered on 01/26/17 21: 18; Admin Dose 25 MG; Start 01/19/17 at 21:00 Enoxaparin Sodium (Lovenox) 40 mg DAILY SC Last administered on 01/26/17 08:05 ; Admin Dose 40 MG; Start 01/20/17 at 09:00 Benazepril HCl (Lotensin) 10 mg DAILY PO Last administered on 01/25/17 08:53; Admin Dose 10 MG; Start 01/20/17 at 09:00 Acetaminophen (Tylenol Tab) 650 mg Q6H PRN PO PAIN LEVEL 1-3 OR FEVER; Start at 20:30 Duloxetine HCl (Cymbalta) 20 mg DAILY PO Last administered on 01/25/17 08:52; Admin Dose 20 MG; Start 01/20/17 at 09:00 Gabapentin (Neurontin) 400 mg Q8 PO Last administered on 01/27/17 05:55; Admin Dose 400 MG; Start 01/20/17 at 06:00 Oxybutynin Chloride (Ditropan Xl) 5 mg DAILY PO Last administered on 01/25/17 08:52; Admin Dose 5 MG; Start 01/20/17 at 09:00 Aspirin (Aspirin) 81 mg DAILY PO Last administered on 01/26/17 10:00; Admin Dose 81 MG; Start 01/20/17 at 09:00 Hydroxychloroquine Sulfate (Plaquenil) 200 mg DAILY PO Last administered on 08:52; Admin Dose 200 MG; Start 01/20/17 at 09:00 Acetaminophen/ Hydrocodone Bitart ([place] (5/325)) 2 tab Q4H PRN PO MODERATE PAIN LEVEL 4-6 Last administered on 01/26/17 10:05; Admin Dose 2 TAB; Start at 13:00 Hydromorphone HCl (Dilaudid) 1 mg Q3H PRN IV PAIN Last administered on 22:08; Admin Dose 1 MG; Start 01/20/17 at 10:00 Cholecalciferol (Vitamin D) 2,000 unit DAILY PO Last administered on 01/26/17 10:01; Admin Dose 2,000 UNIT; Start 01/20/17 at 21:00 Calcium Carbonate 1.25 gm 1.25 gm BID PO Last administered on 01/26/17 21:17; Admin Dose 1.25 GM; Start 01/20/17 at 21:00 Meropenem/Sodium Chloride (Merrem 1 Gm/50 ml (Pmx)) 50 ml @ 100 mls/hr Q12 IVPB Last administered on 01/26/17 21:17; Admin Dose 100 MLS/HR; Start at 15:00; Stop 01/28/17 at 14:59 Docusate Sodium (Colace) 100 mg BID PO Last administered on 01/26/17 21:17; Admin Dose 100 MG; Start 01/22/17 at 09:00 Magnesium Hydroxide (Milk Of Mag) 30 ml BID PRN PO CONSTIPATION; Start at 22:30 Lactulose (Enulose) 20 gm DAILY PRN PO CONSTIPATION; Start 01/21/17 at 22:30 Senna (Senokot) 1 tab HS PO Last administered on 01/26/17 21:17; Admin Dose 1 TAB; Start 01/22/17 at 21:00 Bisacodyl (Dulcolax Supp) 10 mg DAILY PRN [place] CONSTIPATION; Start 01/21/17 at 22 :30 Guaifenesin/ Dextromethorphan (Robitussin Dm Liquid Cup) 10 ml Q4H PRN PO COUGH Last administered on 01/26/17 11:54; Admin Dose 10 ML; Start 01/23/17 at 12:00 Hydrocortisone (Procto-Priyank) 1 applic BID [place] Last administered on 01/25/17 20: 30; Admin Dose 1 APPLIC; Start 01/23/17 at 14:00 Famotidine (Pepcid) 20 mg Q24H PO Last administered on 01/26/17 21:17; Admin Dose 20 MG; Start 01/24/17 at 21:00 SERAFIN GARZA NP Jan 27, 2017 07:59
[2017-01-27] MEDS: HYDROCORTISONE PR SCH ×2 (10:00→20:11)
[2017-01-27] MEDS: DULOXETINE 20 MG CAP DR PO SCH (10:10)
[2017-01-27] MEDS: DOCUSATE SODIUM 100 MG CAP PO SCH ×2 (10:10→20:09)
[2017-01-27] MEDS: HYDROCODONE/APAP (5/325) TAB PO PRN ×2 (10:11→22:01)
[2017-01-27] MEDS: BENAZEPRIL 10 MG TAB PO SCH (10:11)
[2017-01-27] MEDS: HYDROXYCHLOROQUINE 200 MG TAB PO SCH (10:11)
[2017-01-27] MEDS: CALCIUM CARBONATE 1.25 GM TAB PO SCH ×2 (10:11→20:10)
[2017-01-27] MEDS: FERROUS SULFATE (EC) 325 MG TAB PO SCH ×2 (10:12→20:10)
[2017-01-27] MEDS: OXYBUTYNIN (XL) 5 MG TAB PO SCH (10:12)
[2017-01-27] MEDS: ASPIRIN 81 MG TAB PO SCH (10:12)
[2017-01-27] MEDS: FUROSEMIDE 20 MG TAB PO SCH (10:12)
[2017-01-27] MEDS: METOPROLOL 25 MG TAB PO SCH ×2 (10:13→20:17)
[2017-01-27] MEDS: CHOLECALCIFEROL 2,000 UNIT CAP PO SCH (10:13)
[2017-01-27] MEDS: MEROPENEM 1 GM/50ML(PMX) 50 ML IVPB SCH ×2 (10:14→20:08)
[2017-01-27] MEDS: ENOXAPARIN 40 MG/0.4 ML SYG SC SCH (10:14)
--- NOTE | 2017-01-27 11:56 | CONS ---
Date/Time of Note Date/Time of Note DATE: 01/27/17 TIME: 11:56 Consult Date/Type/Reason Admit Date/Time Jan 19, 2017 at 19:34 Initial Consult Date 01/20/17 Type of Consultation: Internal medicine Ordering Provider: NAA MARSH MD Subjective Comfortable Objective pulm-cta min assist ambulation 20 feet Vital Signs Date Time Temp Pulse Resp B/P Pulse Ox O2 Delivery O2 Flow Rate FiO2 01/27/17 07:41 98.3 70 18 140/65 95 Intake and Output 01/26/17 01/26/17 01/27/17 15:00 23:00 07:00 Intake Total 50 ml 730 ml 750 ml Balance 50 ml 730 ml 750 ml Results/Medications Result Diagram: 01/23/17 0646 01/24/17 0626 Medications Current Medications Ferrous Sulfate (Ferrous Sulfate (Ec)) 325 mg BID PO Last administered on 10:12; Admin Dose 325 MG; Start 01/19/17 at 21:00 Furosemide (Lasix) 20 mg DAILY PO Last administered on 01/27/17 10:12; Admin Dose 20 MG; Start 01/20/17 at 09:00 Simethicone (Mylicon) 80 mg Q6H PRN PO DISTENSION/GAS/BLOATING Last administered on 01/26/17 11:46; Admin Dose 80 MG; Start 01/19/17 at 20:30 Magnesium Hydroxide (Milk Of Mag) 30 ml DAILY PRN PO CONSTIPATION; Start at 20:30 Metoprolol Tartrate (Lopressor) 25 mg BID PO Last administered on 01/27/17 10: 13; Admin Dose 25 MG; Start 01/19/17 at 21:00 Enoxaparin Sodium (Lovenox) 40 mg DAILY [place] Last administered on 01/27/17 10:14 ; Admin Dose 40 MG; Start 01/20/17 at 09:00 Benazepril HCl (Lotensin) 10 mg DAILY PO Last administered on 01/27/17 10:11; Admin Dose 10 MG; Start 01/20/17 at 09:00 Acetaminophen (Tylenol Tab) 650 mg Q6H PRN PO PAIN LEVEL 1-3 OR FEVER; Start at 20:30 Duloxetine HCl (Cymbalta) 20 mg DAILY PO Last administered on 01/27/17 10:10; Admin Dose 20 MG; Start 01/20/17 at 09:00 Gabapentin (Neurontin) 400 mg Q8 PO Last administered on 01/27/17 05:55; Admin Dose 400 MG; Start 01/20/17 at 06:00 Oxybutynin Chloride (Ditropan Xl) 5 mg DAILY PO Last administered on 01/27/17 10:12; Admin Dose 5 MG; Start 01/20/17 at 09:00 Aspirin (Aspirin) 81 mg DAILY PO Last administered on 01/27/17 10:12; Admin Dose 81 MG; Start 01/20/17 at 09:00 Hydroxychloroquine Sulfate (Plaquenil) 200 mg DAILY PO Last administered on 10:11; Admin Dose 200 MG; Start 01/20/17 at 09:00 Acetaminophen/ Hydrocodone Bitart ([place] (5/325)) 2 tab Q4H PRN PO MODERATE PAIN LEVEL 4-6 Last administered on 01/27/17 10:11; Admin Dose 2 TAB; Start at 13:00 Hydromorphone HCl (Dilaudid) 1 mg Q3H PRN IV PAIN Last administered on 08:40; Admin Dose 1 MG; Start 01/20/17 at 10:00 Cholecalciferol (Vitamin D) 2,000 unit DAILY PO Last administered on 01/27/17 10:13; Admin Dose 2,000 UNIT; Start 01/20/17 at 21:00 Calcium Carbonate 1.25 gm 1.25 gm BID PO Last administered on 01/27/17 10:11; Admin Dose 1.25 GM; Start 01/20/17 at 21:00 Meropenem/Sodium Chloride (Merrem 1 Gm/50 ml (Pmx)) 50 ml @ 100 mls/hr Q12 IVPB Last administered on 01/27/17 10:14; Admin Dose 100 MLS/HR; Start at 15:00; Stop 01/28/17 at 14:59 Docusate Sodium (Colace) 100 mg BID PO Last administered on 01/27/17 10:10; Admin Dose 100 MG; Start 01/22/17 at 09:00 Magnesium Hydroxide (Milk Of Mag) 30 ml BID PRN PO CONSTIPATION; Start at 22:30 Lactulose (Enulose) 20 gm DAILY PRN PO CONSTIPATION; Start 01/21/17 at 22:30 Senna (Senokot) 1 tab HS PO Last administered on 01/26/17 21:17; Admin Dose 1 TAB; Start 01/22/17 at 21:00 Bisacodyl (Dulcolax Supp) 10 mg DAILY PRN [place] CONSTIPATION; Start 01/21/17 at 22 :30 Guaifenesin/ Dextromethorphan (Robitussin Dm Liquid Cup) 10 ml Q4H PRN PO COUGH Last administered on 01/26/17 11:54; Admin Dose 10 ML; Start 01/23/17 at 12:00 Hydrocortisone (Procto-Priyank) 1 applic BID [place] Last administered on 01/25/17 20: 30; Admin Dose 1 APPLIC; Start 01/23/17 at 14:00 Famotidine (Pepcid) 20 mg Q24H PO Last administered on 01/26/17 21:17; Admin Dose 20 MG; Start 01/24/17 at 21:00 Assessment/Plan Additional Assessment/Plan Rehab-right intertrochanteric hip fracture, status post ORIF; Rheumatoid arthritis affecting multiple joints including bilateral shoulders with decreased range of motion. Continue rehab therapy activities Acute pain syndrome-improving Hypertension. Urinary tract infection. Anemia. Hypocalcemia. Hyperparathyroidism. Gastroesophageal reflux disease. Dyslipidemia. NAA MARSH MD Jan 27, 2017 11:56
[2017-01-27] MEDS: SENNA TAB PO SCH (20:10)
[2017-01-27] MEDS: FAMOTIDINE 20 MG TAB PO SCH (20:10)
[2017-01-27 20:31] VITALS: BP 142/59; RESP 18
[2017-01-28] MEDS: GABAPENTIN 400 MG CAP PO SCH ×3 (06:00→21:09)
--- NOTE | 2017-01-28 07:22 | PN ---
Date/Time of Note Date/Time of Note DATE: 01/28/17 TIME: 07:18 Assessment/Plan VTE Prophylaxis VTE Prophylaxis Intervention: heparin Lines/Catheters [facility] Saline Lock Urinary Cath still in place: No Assessment/Plan Chief Complaint/Hosp Course August 86-year-old woman with a history of osteoporosis previously treated with alendronate. Patient reports that she had a full sustained her fracture. Reports that she previously been told a somewhat low calciums although does not have a great deal detail on this. sHe has been on bisphosphonate therapy. Problems: (1) Fe deficiency anemia Status: Chronic Comment: Patient's on oral iron therapy. Will recheck CBC in the morning. Qualifiers: Iron deficiency anemia type: chronic blood loss Qualified Code: D50.0 - Iron deficiency anemia due to chronic blood loss (2) Closed fracture of right hip requiring operative repair with routine healing Status: Acute Comment: She is going through rehabilitation without complications. Progress is coming along rehabilitation potential is fair (3) Rheumatoid arthritis Status: Chronic Comment: . No additional treatment Qualifiers: Rheumatoid arthritis location: unspecified site Rheumatoid factor presence : with rheumatoid factor Qualified Code: M05.9 - Rheumatoid arthritis with positive rheumatoid factor, involving unspecified site (4) Urinary tract infection due to ESBL Klebsiella Status: Acute Comment: The patient is completing a course of antibiotic therapy for this ESBL infection. Recheck UA and urine culture to verify clearance (5) Osteoporosis Status: Chronic Comment: Noted. Please note the patient had an abdomen vitamin D deficiency. With correction of this how him to come into a normal range. Ultimately she will need to be placed on osteoporosis medication in her case would advocate for either Prolia or Forteo Qualifiers: Osteoporosis type: age-related Presence of current pathological fracture: with current pathological fracture Encounter type: initial encounter Qualified Code: M80.00XA - Age-related osteoporosis with current pathological fracture, initial encounter (6) Hypocalcemia Status: Resolved Comment: Resolved with correction of underlying metabolic disturbance Subjective 24 Hr Interval Summary Free Text/Dictation Resting in bed; no offered complaints, reports progressing with physical therapy Constitutional: no complaints Respiratory: no complaints Cardiovascular: no complaints Exam/Review of Systems Vital Signs Vitals Vital Signs Date Time Temp Pulse Resp B/P Pulse Ox O2 Delivery O2 Flow Rate FiO2 01/27/17 20:31 98.6 72 18 142/59 98 Intake and Output 01/27/17 01/27/17 01/28/17 15:00 23:00 07:00 Intake Total 4460 ml 450 ml Balance 4460 ml 450 ml Exam Constitutional: alert, oriented Respiratory: clear to auscultation, normal air movement Cardiovascular: nl pulses, regular rate and rhythm Results Result Diagram: 01/24/17 0626 Medications Medications Current Medications Ferrous Sulfate (Ferrous Sulfate (Ec)) 325 mg BID PO Last administered on 20:10; Admin Dose 325 MG; Start 01/19/17 at 21:00 Furosemide (Lasix) 20 mg DAILY PO Last administered on 01/27/17 10:12; Admin Dose 20 MG; Start 01/20/17 at 09:00 Simethicone (Mylicon) 80 mg Q6H PRN PO DISTENSION/GAS/BLOATING Last administered on 01/26/17 11:46; Admin Dose 80 MG; Start 01/19/17 at 20:30 Magnesium Hydroxide (Milk Of Mag) 30 ml DAILY PRN PO CONSTIPATION; Start at 20:30 Metoprolol Tartrate (Lopressor) 25 mg BID PO Last administered on 01/27/17 20: 17; Admin Dose 25 MG; Start 01/19/17 at 21:00 Enoxaparin Sodium (Lovenox) 40 mg DAILY SC Last administered on 01/27/17 10:14 ; Admin Dose 40 MG; Start 01/20/17 at 09:00 Benazepril HCl (Lotensin) 10 mg DAILY PO Last administered on 01/27/17 10:11; Admin Dose 10 MG; Start 01/20/17 at 09:00 Acetaminophen (Tylenol Tab) 650 mg Q6H PRN PO PAIN LEVEL 1-3 OR FEVER; Start at 20:30 Duloxetine HCl (Cymbalta) 20 mg DAILY PO Last administered on 01/27/17 10:10; Admin Dose 20 MG; Start 01/20/17 at 09:00 Gabapentin (Neurontin) 400 mg Q8 PO Last administered on 01/27/17 22:01; Admin Dose 400 MG; Start 01/20/17 at 06:00 Oxybutynin Chloride (Ditropan Xl) 5 mg DAILY PO Last administered on 01/27/17 10:12; Admin Dose 5 MG; Start 01/20/17 at 09:00 Aspirin (Aspirin) 81 mg DAILY PO Last administered on 01/27/17 10:12; Admin Dose 81 MG; Start 01/20/17 at 09:00 Hydroxychloroquine Sulfate (Plaquenil) 200 mg DAILY PO Last administered on 10:11; Admin Dose 200 MG; Start 01/20/17 at 09:00 Acetaminophen/ Hydrocodone Bitart ([place] (5/325)) 2 tab Q4H PRN PO MODERATE PAIN LEVEL 4-6 Last administered on 01/27/17 22:01; Admin Dose 2 TAB; Start at 13:00 Hydromorphone HCl (Dilaudid) 1 mg Q3H PRN IV PAIN Last administered on 12:13; Admin Dose 1 MG; Start 01/20/17 at 10:00 Cholecalciferol (Vitamin D) 2,000 unit DAILY PO Last administered on 01/27/17 10:13; Admin Dose 2,000 UNIT; Start 01/20/17 at 21:00 Calcium Carbonate 1.25 gm 1.25 gm BID PO Last administered on 01/27/17 20:10; Admin Dose 1.25 GM; Start 01/20/17 at 21:00 Meropenem/Sodium Chloride (Merrem 1 Gm/50 ml (Pmx)) 50 ml @ 100 mls/hr Q12 IVPB Last administered on 01/27/17 20:08; Admin Dose 100 MLS/HR; Start at 15:00; Stop 01/28/17 at 14:59 Docusate Sodium (Colace) 100 mg BID PO Last administered on 01/27/17 20:09; Admin Dose 100 MG; Start 01/22/17 at 09:00 Magnesium Hydroxide (Milk Of Mag) 30 ml BID PRN PO CONSTIPATION; Start at 22:30 Lactulose (Enulose) 20 gm DAILY PRN PO CONSTIPATION; Start 01/21/17 at 22:30 Senna (Senokot) 1 tab HS PO Last administered on 01/27/17 20:10; Admin Dose 1 TAB; Start 01/22/17 at 21:00 Bisacodyl (Dulcolax Supp) 10 mg DAILY PRN [place] CONSTIPATION; Start 01/21/17 at 22 :30 Guaifenesin/ Dextromethorphan (Robitussin Dm Liquid Cup) 10 ml Q4H PRN PO COUGH Last administered on 01/26/17 11:54; Admin Dose 10 ML; Start 01/23/17 at 12:00 Hydrocortisone (Procto-Priyank) 1 applic BID [place] Last administered on 01/27/17 20: 11; Admin Dose 1 APPLIC; Start 01/23/17 at 14:00 Famotidine (Pepcid) 20 mg Q24H PO Last administered on 01/27/17 20:10; Admin Dose 20 MG; Start 01/24/17 at 21:00 MEHRAN TODD MD Jan 28, 2017 07:21
[2017-01-28 07:30] VITALS: BP 147/66; RESP 20
[2017-01-28] MEDS: ENOXAPARIN 40 MG/0.4 ML SYG SC SCH (08:55)
[2017-01-28] MEDS: ASPIRIN 81 MG TAB PO SCH (08:57)
[2017-01-28] MEDS: BENAZEPRIL 10 MG TAB PO SCH (08:57)
[2017-01-28] MEDS: HYDROXYCHLOROQUINE 200 MG TAB PO SCH (08:57)
[2017-01-28] MEDS: DULOXETINE 20 MG CAP DR PO SCH (08:57)
[2017-01-28] MEDS: FUROSEMIDE 20 MG TAB PO SCH (08:57)
[2017-01-28] MEDS: METOPROLOL 25 MG TAB PO SCH ×2 (09:02→21:11)
[2017-01-28] MEDS: MEROPENEM 1 GM/50ML(PMX) 50 ML IVPB SCH (09:03)
[2017-01-28] MEDS: OXYBUTYNIN (XL) 5 MG TAB PO SCH (09:03)
[2017-01-28] MEDS: HYDROCORTISONE PR SCH ×2 (10:00→21:11)
--- NOTE | 2017-01-28 10:19 | CONS ---
Date/Time of Note Date/Time of Note DATE: 01/28/17 TIME: 10:18 Consult Date/Type/Reason Admit Date/Time Jan 19, 2017 at 19:34 Initial Consult Date 01/20/17 Type of Consultation: Internal medicine Ordering Provider: NAA MARSH MD Subjective Feeling better Objective pulm-cta min transfer and ambulation 20 feet Vital Signs Date Time Temp Pulse Resp B/P Pulse Ox O2 Delivery O2 Flow Rate FiO2 01/28/17 07:30 99.8 70 20 147/66 98 Intake and Output 01/27/17 01/27/17 01/28/17 15:00 23:00 07:00 Intake Total 4460 ml 450 ml Balance 4460 ml 450 ml Results/Medications Result Diagram: 01/24/17 0626 Medications Current Medications Ferrous Sulfate (Ferrous Sulfate (Ec)) 325 mg BID PO Last administered on 20:10; Admin Dose 325 MG; Start 01/19/17 at 21:00 Furosemide (Lasix) 20 mg DAILY PO Last administered on 01/28/17 08:57; Admin Dose 20 MG; Start 01/20/17 at 09:00 Simethicone (Mylicon) 80 mg Q6H PRN PO DISTENSION/GAS/BLOATING Last administered on 01/26/17 11:46; Admin Dose 80 MG; Start 01/19/17 at 20:30 Magnesium Hydroxide (Milk Of Mag) 30 ml DAILY PRN PO CONSTIPATION; Start at 20:30 Metoprolol Tartrate (Lopressor) 25 mg BID PO Last administered on 01/28/17 09: 02; Admin Dose 25 MG; Start 01/19/17 at 21:00 Enoxaparin Sodium (Lovenox) 40 mg DAILY SC Last administered on 01/28/17 08:55 ; Admin Dose 40 MG; Start 01/20/17 at 09:00 Benazepril HCl (Lotensin) 10 mg DAILY PO Last administered on 01/28/17 08:57; Admin Dose 10 MG; Start 01/20/17 at 09:00 Acetaminophen (Tylenol Tab) 650 mg Q6H PRN PO PAIN LEVEL 1-3 OR FEVER; Start at 20:30 Duloxetine HCl (Cymbalta) 20 mg DAILY PO Last administered on 01/28/17 08:57; Admin Dose 20 MG; Start 01/20/17 at 09:00 Gabapentin (Neurontin) 400 mg Q8 PO Last administered on 01/27/17 22:01; Admin Dose 400 MG; Start 01/20/17 at 06:00 Oxybutynin Chloride (Ditropan Xl) 5 mg DAILY PO Last administered on 01/28/17 09:03; Admin Dose 5 MG; Start 01/20/17 at 09:00 Aspirin (Aspirin) 81 mg DAILY PO Last administered on 01/28/17 08:57; Admin Dose 81 MG; Start 01/20/17 at 09:00 Hydroxychloroquine Sulfate (Plaquenil) 200 mg DAILY PO Last administered on 08:57; Admin Dose 200 MG; Start 01/20/17 at 09:00 Acetaminophen/ Hydrocodone Bitart ([place] (5/325)) 2 tab Q4H PRN PO MODERATE PAIN LEVEL 4-6 Last administered on 01/27/17 22:01; Admin Dose 2 TAB; Start at 13:00 Hydromorphone HCl (Dilaudid) 1 mg Q3H PRN IV PAIN Last administered on 12:13; Admin Dose 1 MG; Start 01/20/17 at 10:00 Cholecalciferol (Vitamin D) 2,000 unit DAILY PO Last administered on 01/27/17 10:13; Admin Dose 2,000 UNIT; Start 01/20/17 at 21:00 Calcium Carbonate 1.25 gm 1.25 gm BID PO Last administered on 01/27/17 20:10; Admin Dose 1.25 GM; Start 01/20/17 at 21:00 Meropenem/Sodium Chloride (Merrem 1 Gm/50 ml (Pmx)) 50 ml @ 100 mls/hr Q12 IVPB Last administered on 01/28/17 09:03; Admin Dose 100 MLS/HR; Start at 15:00; Stop 01/28/17 at 14:59 Docusate Sodium (Colace) 100 mg BID PO Last administered on 01/27/17 20:09; Admin Dose 100 MG; Start 01/22/17 at 09:00 Magnesium Hydroxide (Milk Of Mag) 30 ml BID PRN PO CONSTIPATION; Start at 22:30 Lactulose (Enulose) 20 gm DAILY PRN PO CONSTIPATION; Start 01/21/17 at 22:30 Senna (Senokot) 1 tab HS PO Last administered on 01/27/17 20:10; Admin Dose 1 TAB; Start 01/22/17 at 21:00 Bisacodyl (Dulcolax Supp) 10 mg DAILY PRN [place] CONSTIPATION; Start 01/21/17 at 22 :30 Guaifenesin/ Dextromethorphan (Robitussin Dm Liquid Cup) 10 ml Q4H PRN PO COUGH Last administered on 01/26/17 11:54; Admin Dose 10 ML; Start 01/23/17 at 12:00 Hydrocortisone (Procto-Priyank) 1 applic BID SC Last administered on 01/27/17 20: 11; Admin Dose 1 APPLIC; Start 01/23/17 at 14:00 Famotidine (Pepcid) 20 mg Q24H PO Last administered on 01/27/17 20:10; Admin Dose 20 MG; Start 01/24/17 at 21:00 Assessment/Plan Additional Assessment/Plan Rehab-right intertrochanteric hip fracture, status post ORIF; Rheumatoid arthritis affecting multiple joints including bilateral shoulders with decreased range of motion. Continue rehab program Acute pain syndrome-improving Hypertension. Urinary tract infection. Anemia. Hypocalcemia. Hyperparathyroidism. Gastroesophageal reflux disease. Dyslipidemia. NAA MARSH MD Jan 28, 2017 10:19
[2017-01-28] MEDS: FERROUS SULFATE (EC) 325 MG TAB PO SCH ×2 (12:32→21:09)
[2017-01-28] MEDS: CHOLECALCIFEROL 2,000 UNIT CAP PO SCH (12:32)
[2017-01-28] MEDS: DOCUSATE SODIUM 100 MG CAP PO SCH ×2 (12:32→21:00)
[2017-01-28] MEDS: CALCIUM CARBONATE 1.25 GM TAB PO SCH ×2 (12:33→21:10)
[2017-01-28] MEDS: SUCRALFATE 1 GM TAB PO SCH ×3 (13:00→21:09)
[2017-01-28 14:00] VITALS: BP 144/65; RESP 20
[2017-01-28 14:22] LABS: ADD UMIC YES; UR ASCORBIC ACID NEGATIVE (NEGATIVE); UR BACTERIA FEW /HPF (NONE SEEN); UR BILIRUBIN (Dip) NEGATIVE (NEGATIVE); UR BLOOD (Dip) 1+ mg/dL (NEGATIVE); UR CLARITY CLEAR (CLEAR); UR COLOR YELLOW (YELLOW); UR GLUCOSE (Dip) NEGATIVE (NEGATIVE); UR KETONES (Dip) NEGATIVE (NEGATIVE); UR LEUKOCYTE ESTERASE (Dip) 2+ Leu/ul (NEGATIVE); UR NITRITE (Dip) NEGATIVE (NEGATIVE); UR RBC 9 /HPF (0-5); UR SQUAMOUS EPITHELIAL CELL FEW /HPF (FEW); UR TOTAL PROTEIN (Dip) NEGATIVE (NEGATIVE); UR UROBILINOGEN (Dip) NEGATIVE (NEGATIVE)
[2017-01-28] MEDS: DICLOFENAC SODIUM 1% GEL 100 GM TUBE TP SCH ×3 (17:00→21:13)
[2017-01-28] MEDS: PANTOPRAZOLE (EC) 40 MG TAB PO SCH (17:48)
[2017-01-28 19:31] VITALS: BP 121/58; RESP 19
[2017-01-28] MEDS: SENNA TAB PO SCH (21:00)
[2017-01-28] MEDS: ZOLPIDEM 5 MG TAB PO PRN (21:10)
[2017-01-28] MEDS: GUAIFENESIN/DM 5ML CUP PO PRN (21:18)
[2017-01-29 02:59] VITALS: BP 141/66; RESP 19
[2017-01-29] MEDS: PANTOPRAZOLE (EC) 40 MG TAB PO SCH ×2 (06:00→17:29)
[2017-01-29] MEDS: GABAPENTIN 400 MG CAP PO SCH ×2 (06:00→08:10)
[2017-01-29] MEDS: HYDROmorphONE 1 MG/ML SYG IV PRN ×6 (07:45→18:47)
[2017-01-29 08:00] VITALS: BP 172/72; RESP 18
[2017-01-29] MEDS: CALCIUM CARBONATE 1.25 GM TAB PO SCH ×2 (08:09→20:32)
[2017-01-29] MEDS: FUROSEMIDE 20 MG TAB PO SCH (08:09)
[2017-01-29] MEDS: CHOLECALCIFEROL 2,000 UNIT CAP PO SCH (08:09)
[2017-01-29] MEDS: DOCUSATE SODIUM 100 MG CAP PO SCH ×2 (08:09→20:32)
[2017-01-29] MEDS: ASPIRIN 81 MG TAB PO SCH (08:09)
[2017-01-29] MEDS: BENAZEPRIL 10 MG TAB PO SCH (08:10)
[2017-01-29] MEDS: ENOXAPARIN 40 MG/0.4 ML SYG SC SCH (08:12)
[2017-01-29 08:30] VITALS: BP 144/65; PULSE 78; RESP 18
[2017-01-29 08:48] LABS: BASOPHIL # 0.1 10^3/ul (0.0-0.1); BASOPHILS % 0.7 % (0.0-2.0); EOSINOPHILS # 0.1 10^3/ul (0.0-0.5); HEMATOCRIT 31.7 % (37.0-47.0); LYMPHOCYTES # 1.3 10^3/ul (0.8-2.9); LYMPHOCYTES % 17.9 % (15.0-51.0); MEAN CORPUSCULAR HEMOGLOBIN 27.8 pg (29.0-33.0); MEAN CORPUSCULAR HGB CONC 31.5 g/dl (32.0-37.0); MEAN CORPUSCULAR VOLUME 88.1 fl (82.0-101.0); MEAN PLATELET VOLUME 10.3 fl (7.4-10.4); MONOCYTE # 0.5 10^3/ul (0.3-0.9); MONOCYTES % 7.6 % (0.0-11.0); NEUTROPHILS % 71.2 % (39.0-77.0); PLATELET COUNT 288 10^3/UL (140-415); RED CELL DISTRIBUTION WIDTH 16.8 % (11.5-14.5)
[2017-01-29] MEDS: HYDROCORTISONE PR SCH ×2 (09:00→20:32)
[2017-01-29] MEDS: OXYBUTYNIN (XL) 5 MG TAB PO SCH (09:23)
[2017-01-29 09:25] LABS: ALBUMIN 3.4 g/dl (3.3-4.9); ALBUMIN/GLOBULIN RATIO 1.03; BILIRUBIN,INDIRECT 0.5 mg/dl (0-1.1); BILIRUBIN,TOTAL 0.5 mg/dl (0.2-1.3); CALCIUM 8.8 mg/dl (8.4-10.2); CREATININE 0.7 mg/dl (0.44-1.00); POTASSIUM 4.3 mmol/L (3.5-5.1); TOTAL PROTEIN 6.7 g/dl (6.1-8.1)
[2017-01-29] MEDS: SUCRALFATE 1 GM TAB PO SCH ×4 (09:29→20:32)
[2017-01-29] MEDS: METOPROLOL 25 MG TAB PO SCH ×2 (09:29→20:33)
[2017-01-29] MEDS: FERROUS SULFATE (EC) 325 MG TAB PO SCH ×2 (09:29→20:32)
[2017-01-29] MEDS: DICLOFENAC SODIUM 1% GEL 100 GM TUBE TP SCH ×4 (09:29→20:33)
[2017-01-29] MEDS: HYDROXYCHLOROQUINE 200 MG TAB PO SCH (09:29)
[2017-01-29] MEDS: DULOXETINE 20 MG CAP DR PO SCH (09:30)
[2017-01-29] MEDS: GUAIFENESIN/DM 5ML CUP PO PRN (09:36)
--- NOTE | 2017-01-29 11:47 | PN ---
Date/Time of Note Date/Time of Note DATE: 01/29/17 TIME: 11:41 Assessment/Plan VTE Prophylaxis VTE Prophylaxis Intervention: LMWH Lines/Catheters IV Catheter Type (from [facility]): Saline Lock Urinary Cath still in place: No Assessment/Plan Chief Complaint/Hosp Course August 86-year-old woman with a history of osteoporosis previously treated with alendronate. Patient reports that she had a full sustained her fracture. Reports that she previously been told a somewhat low calciums although does not have a great deal detail on this. sHe has been on bisphosphonate therapy. Problems: (1) Fe deficiency anemia Status: Chronic Comment: Blood counts are coming up quite nicely with iron replacement therapy. Expect full resolution Qualifiers: Iron deficiency anemia type: chronic blood loss Qualified Code: D50.0 - Iron deficiency anemia due to chronic blood loss (2) Closed fracture of right hip requiring operative repair with routine healing Status: Acute Comment: Is status post ORIF. She is complaining of pain. We will do we can to see if we alleviate pain. Please note he has a chronic pain syndrome and this will modulate what her total expectations should be (3) Rheumatoid arthritis Status: Chronic Comment: Noted. Off of treatment Qualifiers: Rheumatoid arthritis location: unspecified site Rheumatoid factor presence : with rheumatoid factor Qualified Code: M05.9 - Rheumatoid arthritis with positive rheumatoid factor, involving unspecified site (4) Urinary tract infection due to ESBL Klebsiella Status: Acute Comment: Follow up culture is pending (5) Osteoporosis Status: Chronic Comment: Noted. As outpatient initiate treatment with Forteo or Prolia Qualifiers: Osteoporosis type: age-related Presence of current pathological fracture: with current pathological fracture Encounter type: initial encounter Qualified Code: M80.00XA - Age-related osteoporosis with current pathological fracture, initial encounter (6) History of fibromyalgia Status: Acute Comment: Noted. Trial of antiepileptic drug therapy (7) Chronic pain Status: Acute Comment: Attempt at pain management. Qualifiers: Chronic pain type: chronic pain syndrome Qualified Code: G89.4 - Chronic pain syndrome Subjective 24 Hr Interval Summary Free Text/Dictation Patient reports that she still has significant pain and she does not think she is doing better Constitutional: no complaints (Denies fevers chills or sweats) Respiratory: no complaints Cardiovascular: no complaints Gastrointestinal: no complaints Musculoskeletal: other Exam/Review of Systems Vital Signs Vitals Vital Signs Date Time Temp Pulse Resp B/P Pulse Ox O2 Delivery O2 Flow Rate FiO2 01/29/17 08:30 144/65 01/29/17 02:59 98.7 67 19 98 Intake and Output 01/28/17 01/28/17 01/29/17 15:00 23:00 07:00 Intake Total 50 ml 420 ml Output Total 1 ml Balance 50 ml 419 ml Exam Constitutional: alert, oriented Neck: non-tender, supple Respiratory: clear to auscultation, normal air movement Cardiovascular: nl pulses, regular rate and rhythm Gastrointestinal: nl liver, spleen, non-tender, soft Musculoskeletal: nl extremities to inspection Extremities: normal pulses Results Result Diagram: 01/29/1762201/29/1723 Results 24 hrs Laboratory Tests Test 01/28/17 12:30 01/29/17 06:23 Urine Color YELLOW Urine Clarity CLEAR Urine pH 8.0 Urine Specific [place] 1.010 Urine Ketones NEGATIVE Urine Nitrite NEGATIVE Urine Bilirubin NEGATIVE Urine Urobilinogen NEGATIVE Urine Leukocyte Esterase 2+ H Urine Microscopic RBC 9 H Urine Microscopic WBC 34 H Urine Squamous Epithelial Cells FEW Urine Bacteria FEW A Urine Hemoglobin 1+ H Urine Glucose NEGATIVE Urine Total Protein NEGATIVE White Blood Count 7.0 # Red Blood Count 3.60 #L Hemoglobin 10.0 #L Hematocrit 31.7 #L Mean Corpuscular Volume 88.1 Mean Corpuscular Hemoglobin 27.8 L Mean Corpuscular Hemoglobin Concent 31.5 L Red Cell Distribution Width 16.8 H Platelet Count 288 Mean Platelet Volume 10.3 Neutrophils % 71.2 Lymphocytes % 17.9 Monocytes % 7.6 Eosinophils % 2.0 Basophils % 0.7 Nucleated Red Blood Cells % 0.0 Neutrophils # (Manual) 5.0 Lymphocytes # 1.3 Monocytes # 0.5 Eosinophils # 0.1 Basophils # 0.1 Nucleated Red Blood Cells # 0.0 Sodium Level 142 Potassium Level 4.3 Chloride Level 102 Carbon Dioxide Level 28 Anion Gap 16 Blood Urea Nitrogen 20 Creatinine 0.70 Glucose Level 83 Calcium Level 8.8 Total Bilirubin 0.5 Direct Bilirubin 0.00 Indirect Bilirubin 0.5 Aspartate Amino Transf (AST/SGOT) 21 Alanine Aminotransferase (ALT/SGPT) 27 Alkaline Phosphatase 133 H Total Protein 6.7 Albumin 3.4 Globulin 3.30 H Albumin/Globulin Ratio 1.03 Medications Medications Current Medications Ferrous Sulfate (Ferrous Sulfate (Ec)) 325 mg BID PO Last administered on 09:29; Admin Dose 325 MG; Start 01/19/17 at 21:00 Furosemide (Lasix) 20 mg DAILY PO Last administered on 01/29/17 08:09; Admin Dose 20 MG; Start 01/20/17 at 09:00 Simethicone (Mylicon) 80 mg Q6H PRN PO DISTENSION/GAS/BLOATING Last administered on 01/26/17 11:46; Admin Dose 80 MG; Start 01/19/17 at 20:30 Magnesium Hydroxide (Milk Of Mag) 30 ml DAILY PRN PO CONSTIPATION; Start at 20:30 Metoprolol Tartrate (Lopressor) 25 mg BID PO Last administered on 01/29/17 09: 29; Admin Dose 25 MG; Start 01/19/17 at 21:00 Enoxaparin Sodium (Lovenox) 40 mg DAILY SC Last administered on 01/29/17 08:12 ; Admin Dose 40 MG; Start 01/20/17 at 09:00 Benazepril HCl (Lotensin) 10 mg DAILY PO Last administered on 01/29/17 08:10; Admin Dose 10 MG; Start 01/20/17 at 09:00 Acetaminophen (Tylenol Tab) 650 mg Q6H PRN PO PAIN LEVEL 1-3 OR FEVER; Start at 20:30 Duloxetine HCl (Cymbalta) 20 mg DAILY PO Last administered on 01/29/17 09:30; Admin Dose 20 MG; Start 01/20/17 at 09:00 Gabapentin (Neurontin) 400 mg Q8 PO Last administered on 01/29/17 08:10; Admin Dose 400 MG; Start 01/20/17 at 06:00 Oxybutynin Chloride (Ditropan Xl) 5 mg DAILY PO Last administered on 01/29/17 09:23; Admin Dose 5 MG; Start 01/20/17 at 09:00 Aspirin (Aspirin) 81 mg DAILY PO Last administered on 01/29/17 08:09; Admin Dose 81 MG; Start 01/20/17 at 09:00 Hydroxychloroquine Sulfate (Plaquenil) 200 mg DAILY PO Last administered on 09:29; Admin Dose 200 MG; Start 01/20/17 at 09:00 Acetaminophen/ Hydrocodone Bitart ([place] (5/325)) 2 tab Q4H PRN PO MODERATE PAIN LEVEL 4-6 Last administered on 01/27/17 22:01; Admin Dose 2 TAB; Start at 13:00 Hydromorphone HCl (Dilaudid) 1 mg Q3H PRN IV PAIN Last administered on 11:19; Admin Dose 1 MG; Start 01/20/17 at 10:00 Cholecalciferol (Vitamin D) 2,000 unit DAILY PO Last administered on 01/29/17 08:09; Admin Dose 2,000 UNIT; Start 01/20/17 at 21:00 Calcium Carbonate ([place] Calcium) 1.25 gm BID PO Last administered on 08:09; Admin Dose 1.25 GM; Start 01/20/17 at 21:00 Docusate Sodium (Colace) 100 mg BID PO Last administered on 01/29/17 08:09; Admin Dose 100 MG; Start 01/22/17 at 09:00 Magnesium Hydroxide (Milk Of Mag) 30 ml BID PRN PO CONSTIPATION; Start at 22:30 Lactulose (Enulose) 20 gm DAILY PRN PO CONSTIPATION; Start 01/21/17 at 22:30 Senna (Senokot) 1 tab HS PO Last administered on 01/27/17 20:10; Admin Dose 1 TAB; Start 01/22/17 at 21:00 Bisacodyl (Dulcolax Supp) 10 mg DAILY PRN [place] CONSTIPATION; Start 01/21/17 at 22 :30 Guaifenesin/ Dextromethorphan (Robitussin Dm Liquid Cup) 10 ml Q4H PRN PO COUGH Last administered on 01/29/17 09:36; Admin Dose 10 ML; Start 01/23/17 at 12:00 Hydrocortisone (Procto-Priyank) 1 applic BID [place] Last administered on 01/28/17 21: 11; Admin Dose 1 APPLIC; Start 01/23/17 at 14:00 Pantoprazole (Protonix Tab) 40 mg BID@06,18 PO Last administered on 01/28/17 17:48; Admin Dose 40 MG; Start 01/28/17 at 18:00 Sucralfate (Carafate) 1 gm QID PO Last administered on 01/29/17 09:29; Admin Dose 1 GM; Start 01/28/17 at 13:00 Diclofenac Sodium (Voltaren 1% Gel) 4 gm QID TP Last administered on 01/29/17 09:29; Admin Dose 4 GM; Start 01/28/17 at 13:00 Zolpidem Tartrate (Ambien) 5 mg HS PRN PO INSOMNIA Last administered on 21:10; Admin Dose 5 MG; Start 01/28/17 at 20:30 MEHRAN TODD MD Jan 29, 2017 11:47
[2017-01-29] MEDS: GABAPENTIN 300 MG CAP PO SCH ×2 (13:56→21:59)
[2017-01-29] MEDS: CELECOXIB 100 MG CAP PO SCH ×2 (14:08→20:32)
[2017-01-29] MEDS: HYDROCODONE/APAP (5/325) TAB PO PRN (17:39)
[2017-01-29 20:00] VITALS: BP 91/48; RESP 18
[2017-01-29 20:29] VITALS: BP 98/49; PULSE 59; RESP 20
[2017-01-29 20:31] VITALS: BP 98/52; PULSE 62; RESP 19
[2017-01-29] MEDS: SENNA TAB PO SCH (20:32)
[2017-01-29] MEDS: ZOLPIDEM 5 MG TAB PO PRN (23:21)
[2017-01-30 02:00] VITALS: BP 129/58; RESP 18
[2017-01-30] MEDS: GABAPENTIN 300 MG CAP PO SCH ×4 (05:51→14:10)
[2017-01-30] MEDS: PANTOPRAZOLE (EC) 40 MG TAB PO SCH ×2 (05:51→17:51)
[2017-01-30 07:30] VITALS: BP 117/49; RESP 20
[2017-01-30] MEDS: SUCRALFATE 1 GM TAB PO SCH ×3 (08:49→17:51)
[2017-01-30] MEDS: ASPIRIN 81 MG TAB PO SCH (08:49)
[2017-01-30] MEDS: OXYBUTYNIN (XL) 5 MG TAB PO SCH (08:50)
[2017-01-30] MEDS: DOCUSATE SODIUM 100 MG CAP PO SCH (08:50)
[2017-01-30] MEDS: FERROUS SULFATE (EC) 325 MG TAB PO SCH (08:50)
[2017-01-30] MEDS: CELECOXIB 100 MG CAP PO SCH (08:50)
[2017-01-30] MEDS: METOPROLOL 25 MG TAB PO SCH (08:51)
[2017-01-30] MEDS: FUROSEMIDE 20 MG TAB PO SCH (08:51)
[2017-01-30] MEDS: BENAZEPRIL 10 MG TAB PO SCH (08:51)
[2017-01-30] MEDS: CALCIUM CARBONATE 1.25 GM TAB PO SCH (08:51)
[2017-01-30] MEDS: CHOLECALCIFEROL 2,000 UNIT CAP PO SCH (08:52)
[2017-01-30] MEDS: HYDROXYCHLOROQUINE 200 MG TAB PO SCH (08:52)
[2017-01-30] MEDS: HYDROCORTISONE PR SCH (08:52)
[2017-01-30] MEDS: ENOXAPARIN 40 MG/0.4 ML SYG SC SCH (08:54)
[2017-01-30] MEDS: DICLOFENAC SODIUM 1% GEL 100 GM TUBE TP SCH ×3 (08:55→17:53)
[2017-01-30] MEDS: HYDROmorphONE 1 MG/ML SYG IV PRN (08:56)
[2017-01-30] MEDS ORDERED: DULOXETINE 30 MG CAP DR PO SCH (09:00)
--- NOTE | 2017-01-30 11:15 | CONS ---
Date/Time of Note Date/Time of Note DATE: 01/30/17 TIME: 11:09 Consult Date/Type/Reason Admit Date/Time Jan 19, 2017 at 19:34 Initial Consult Date 01/20/17 Type of Consultation: Internal medicine Ordering Provider: NAA MARSH MD Subjective She is comfortable Objective Vital Signs Date Time Temp Pulse Resp B/P Pulse Ox O2 Delivery O2 Flow Rate FiO2 01/30/17 07:30 99.1 69 20 117/49 100 01/29/17 20:31 Room Air Intake and Output 01/29/17 01/29/17 01/30/17 15:00 23:00 07:00 Intake Total 600 ml Balance 600 ml Interdisciplinary Team Conference: Bowel-continent/incontinent Bladder-continent/incontinent Integument-clean dry and intact OT- Dressing-minimal assist Bathing-min assist Toileting-moderate PT Bed mobility-minimal assist Transfers-minimal assist Swhujfknoo-wanm-bw-moderate 30 feet Wheelchair mobility-minimal to contact-guard assist Interdisciplinary team conference held today please see note. Team is working towards discharge today with physical therapy and Occupational Therapy follow- up lower level of care. Results/Medications Result Diagram: 01/29/17 0623 01/29/17 0623 Medications Current Medications Ferrous Sulfate (Ferrous Sulfate (Ec)) 325 mg BID PO Last administered on 08:50; Admin Dose 325 MG; Start 01/19/17 at 21:00; Stop 02/17/17 at 20:59 Furosemide (Lasix) 20 mg DAILY PO Last administered on 01/30/17 08:51; Admin Dose 20 MG; Start 01/20/17 at 09:00 Simethicone (Mylicon) 80 mg Q6H PRN PO DISTENSION/GAS/BLOATING Last administered on 01/26/17 11:46; Admin Dose 80 MG; Start 01/19/17 at 20:30 Magnesium Hydroxide (Milk Of Mag) 30 ml DAILY PRN PO CONSTIPATION; Start at 20:30 Metoprolol Tartrate (Lopressor) 25 mg BID PO Last administered on 01/30/17 08: 51; Admin Dose 25 MG; Start 01/19/17 at 21:00 Enoxaparin Sodium (Lovenox) 40 mg DAILY SC Last administered on 01/30/17 08:54 ; Admin Dose 40 MG; Start 01/20/17 at 09:00 Benazepril HCl (Lotensin) 10 mg DAILY PO Last administered on 01/30/17 08:51; Admin Dose 10 MG; Start 01/20/17 at 09:00 Acetaminophen (Tylenol Tab) 650 mg Q6H PRN PO PAIN LEVEL 1-3 OR FEVER; Start at 20:30 Oxybutynin Chloride (Ditropan Xl) 5 mg DAILY PO Last administered on 01/30/17 08:50; Admin Dose 5 MG; Start 01/20/17 at 09:00 Aspirin (Aspirin) 81 mg DAILY PO Last administered on 01/30/17 08:49; Admin Dose 81 MG; Start 01/20/17 at 09:00 Hydroxychloroquine Sulfate (Plaquenil) 200 mg DAILY PO Last administered on 08:52; Admin Dose 200 MG; Start 01/20/17 at 09:00 Acetaminophen/ Hydrocodone Bitart ([place] (5/325)) 2 tab Q4H PRN PO MODERATE PAIN LEVEL 4-6 Last administered on 01/29/17 17:39; Admin Dose 1 TAB; Start at 13:00 Hydromorphone HCl (Dilaudid) 1 mg Q3H PRN IV PAIN Last administered on 08:56; Admin Dose 1 MG; Start 01/20/17 at 10:00 Cholecalciferol (Vitamin D) 2,000 unit DAILY PO Last administered on 01/30/17 08:52; Admin Dose 2,000 UNIT; Start 01/20/17 at 21:00 Calcium Carbonate ([place]yster Shell Calcium) 1.25 gm BID PO Last administered on 08:51; Admin Dose 1.25 GM; Start 01/20/17 at 21:00 Docusate Sodium (Colace) 100 mg BID PO Last administered on 01/30/17 08:50; Admin Dose 100 MG; Start 01/22/17 at 09:00 Magnesium Hydroxide (Milk Of Mag) 30 ml BID PRN PO CONSTIPATION; Start at 22:30 Lactulose (Enulose) 20 gm DAILY PRN PO CONSTIPATION; Start 01/21/17 at 22:30 Senna (Senokot) 1 tab HS PO Last administered on 01/29/17 20:32; Admin Dose 1 TAB; Start 01/22/17 at 21:00 Bisacodyl (Dulcolax Supp) 10 mg DAILY PRN [place] CONSTIPATION; Start 01/21/17 at 22 :30 Guaifenesin/ Dextromethorphan (Robitussin Dm Liquid Cup) 10 ml Q4H PRN PO COUGH Last administered on 01/29/17 09:36; Admin Dose 10 ML; Start 01/23/17 at 12:00 Hydrocortisone (Procto-Priyank) 1 applic BID [place] Last administered on 01/30/17 08: 52; Admin Dose 1 APPLIC; Start 01/23/17 at 14:00 Pantoprazole (Protonix Tab) 40 mg BID@,18 PO Last administered on 01/30/17 05:51; Admin Dose 40 MG; Start 01/28/17 at 18:00 Sucralfate (Carafate) 1 gm QID PO Last administered on 01/30/17 08:49; Admin Dose 1 GM; Start 01/28/17 at 13:00 Diclofenac Sodium (Voltaren 1% Gel) 4 gm QID TP Last administered on 01/30/17 08:55; Admin Dose 4 GM; Start 01/28/17 at 13:00 Zolpidem Tartrate (Ambien) 5 mg HS PRN PO INSOMNIA Last administered on 23:21; Admin Dose 5 MG; Start 01/28/17 at 20:30 Duloxetine HCl (Cymbalta) 30 mg DAILY PO Last administered on 01/30/17 08:50; Admin Dose 30 MG; Start 01/30/17 at 09:00 Celecoxib (Celebrex) 100 mg BID PO Last administered on 01/30/17 08:50; Admin Dose 100 MG; Start 01/29/17 at 13:00; Stop 02/05/17 at 12:59 Gabapentin (Neurontin) 600 mg Q8 PO Last administered on 01/30/17 08:49; Admin Dose 600 MG; Start 01/30/17 at 08:00 NAA MARSH MD Jan 30, 2017 11:15
[2017-01-30] MEDS: ZYVOX 600 MG TAB PO SCH ×2 (12:56→18:54)
--- NOTE | 2017-01-30 13:58 | PN ---
Date/Time of Note Date/Time of Note DATE: 01/30/17 TIME: 13:55 Assessment/Plan VTE Prophylaxis VTE Prophylaxis Intervention: LMWH Lines/Catheters IV Catheter Type (from [facility]): [place] [facility] Urinary Cath still in place: No Assessment/Plan Chief Complaint/Hosp Course 1. Right hip intertrochanteric fracture. s/p ORIF 01/14/2017. --Continue PT eval&tx 2. Essential hypertension. Stable. -Continue Metoprolol and Benazepril 3. VRE urinary tract infection. -Start Zyvox x 7days 4. Iron deficiency anemia. Stable H&H. -Continue oral iron replacement 5. Hypocalcemia with possible hyperparathyroidism. -Continue oral replacement . Please note that patient has been evaluated by shape brick molder regarding elevated PTH level. 6. Rheumatoid arthritis -Continue with pain control. 7. Debility -Continue with rehabilitation therapies. 8.GERD -Pepcid Agreed on discharge to nursing home facility. Case discussed with Dr. PIÑA Problems: Subjective 24 Hr Interval Summary Free Text/Dictation Patient with no acute overnight episodes. For discharge to [facility] today. Exam/Review of Systems Vital Signs Vitals Vital Signs Date Time Temp Pulse Resp B/P Pulse Ox O2 Delivery O2 Flow Rate FiO2 01/30/17 07:30 99.1 69 20 117/49 100 01/29/17 20:31 Room Air Intake and Output 01/29/17 01/29/17 01/30/17 15:00 23:00 07:00 Intake Total 600 ml Balance 600 ml Exam General: Elderly female, not in any acute distress . HEENT: Normocephalic, Atraumatic, No laceration or hematoma; Eyes: PEERL, Conjunctiva clear, Anicteric sclera Neck: Supple without any lymphadenopathy, nontender, no JVD, no carotid bruits, trachea midline, no thyromegaly Cardiac: S1, S2 auscultated, regular rhythm and rate, no mumurs or gallop Pulmonary: Normal respiratory effort. Chest clear to auscultation bilaterally, no adventitious breath sounds GI: Abdomen normal to inspection. Soft, non tender, non- distended, no masses, no rebound tenderness or guarding. Bowel sounds active on all four quadrants Genitourinary: Deferred Extremities: Positive edema on right lower extremity-improved. Right hip surgical site intact. No cyanosis, clubbing, or edema. Pulses [2+] bilaterally. Range of motion decreased on right lower extremity, otherwise intact on all other. No focal weakness appreciated. Neurologic: Alert to person, place, time, and situation. Affect appropriate, intact sensation. Skin: Clean,dry, and intact. No ecchymosis, no rashes, or lesions Results Result Diagram: 01/29/17 0623 01/29/17 0623 Medications Medications Current Medications Ferrous Sulfate (Ferrous Sulfate (Ec)) 325 mg BID PO Last administered on 08:50; Admin Dose 325 MG; Start 01/19/17 at 21:00; Stop 02/17/17 at 20:59 Furosemide (Lasix) 20 mg DAILY PO Last administered on 01/30/17 08:51; Admin Dose 20 MG; Start 01/20/17 at 09:00 Simethicone (Mylicon) 80 mg Q6H PRN PO DISTENSION/GAS/BLOATING Last administered on 01/26/17 11:46; Admin Dose 80 MG; Start 01/19/17 at 20:30 Magnesium Hydroxide (Milk Of Mag) 30 ml DAILY PRN PO CONSTIPATION; Start at 20:30 Metoprolol Tartrate (Lopressor) 25 mg BID PO Last administered on 01/30/17 08: 51; Admin Dose 25 MG; Start 01/19/17 at 21:00 Enoxaparin Sodium (Lovenox) 40 mg DAILY SC Last administered on 01/30/17 08:54 ; Admin Dose 40 MG; Start 01/20/17 at 09:00 Benazepril HCl (Lotensin) 10 mg DAILY PO Last administered on 01/30/17 08:51; Admin Dose 10 MG; Start 01/20/17 at 09:00 Acetaminophen (Tylenol Tab) 650 mg Q6H PRN PO PAIN LEVEL 1-3 OR FEVER; Start at 20:30 Oxybutynin Chloride (Ditropan Xl) 5 mg DAILY PO Last administered on 01/30/17 08:50; Admin Dose 5 MG; Start 01/20/17 at 09:00 Aspirin (Aspirin) 81 mg DAILY PO Last administered on 01/30/17 08:49; Admin Dose 81 MG; Start 01/20/17 at 09:00 Hydroxychloroquine Sulfate (Plaquenil) 200 mg DAILY PO Last administered on 08:52; Admin Dose 200 MG; Start 01/20/17 at 09:00 Acetaminophen/ Hydrocodone Bitart (Felicity (5/325)) 2 tab Q4H PRN PO MODERATE PAIN LEVEL 4-6 Last administered on 01/29/17 17:39; Admin Dose 1 TAB; Start at 13:00 Hydromorphone HCl (Dilaudid) 1 mg Q3H PRN IV PAIN Last administered on 08:56; Admin Dose 1 MG; Start 01/20/17 at 10:00 Cholecalciferol (Vitamin D) 2,000 unit DAILY PO Last administered on 01/30/17 08:52; Admin Dose 2,000 UNIT; Start 01/20/17 at 21:00 Calcium Carbonate (Oyster Shell Calcium) 1.25 gm BID PO Last administered on 08:51; Admin Dose 1.25 GM; Start 01/20/17 at 21:00 Docusate Sodium (Colace) 100 mg BID PO Last administered on 01/30/17 08:50; Admin Dose 100 MG; Start 01/22/17 at 09:00 Magnesium Hydroxide (Milk Of Mag) 30 ml BID PRN PO CONSTIPATION; Start at 22:30 Lactulose (Enulose) 20 gm DAILY PRN PO CONSTIPATION; Start 01/21/17 at 22:30 Senna (Senokot) 1 tab HS PO Last administered on 01/29/17 20:32; Admin Dose 1 TAB; Start 01/22/17 at 21:00 Bisacodyl (Dulcolax Supp) 10 mg DAILY PRN MT CONSTIPATION; Start 01/21/17 at 22 :30 Guaifenesin/ Dextromethorphan (Robitussin Dm Liquid Cup) 10 ml Q4H PRN PO COUGH Last administered on 01/29/17 09:36; Admin Dose 10 ML; Start 01/23/17 at 12:00 Hydrocortisone (Procto-Priyank) 1 applic BID MT Last administered on 01/30/17 08: 52; Admin Dose 1 APPLIC; Start 01/23/17 at 14:00 Pantoprazole (Protonix Tab) 40 mg BID@18 PO Last administered on 01/30/17 05:51; Admin Dose 40 MG; Start 01/28/17 at 18:00 Sucralfate (Carafate) 1 gm QID PO Last administered on 01/30/17 12:56; Admin Dose 1 GM; Start 01/28/17 at 13:00 Diclofenac Sodium (Voltaren 1% Gel) 4 gm QID TP Last administered on 01/30/17 12:59; Admin Dose 4 GM; Start 01/28/17 at 13:00 Zolpidem Tartrate (Ambien) 5 mg HS PRN PO INSOMNIA Last administered on 23:21; Admin Dose 5 MG; Start 01/28/17 at 20:30 Duloxetine HCl (Cymbalta) 30 mg DAILY PO Last administered on 01/30/17 08:50; Admin Dose 30 MG; Start 01/30/17 at 09:00 Celecoxib (Celebrex) 100 mg BID PO Last administered on 01/30/17 08:50; Admin Dose 100 MG; Start 01/29/17 at 13:00; Stop 02/05/17 at 12:59 Gabapentin (Neurontin) 600 mg Q8 PO Last administered on 01/30/17 08:49; Admin Dose 600 MG; Start 01/30/17 at 08:00 Linezolid (Zyvox) 600 mg BID PO Last administered on 01/30/17 12:56; Admin Dose 600 MG; Start 01/30/17 at 11:30; Stop 02/06/17 at 11:29 SERAFIN GARZA NP Jan 30, 2017 13:58
[2017-01-30 14:00] VITALS: BP 104/51; RESP 18
== END 2017-01-30 19:23 | DRG 560 ==
LOC: VRC 19:34
PROVIDERS: ADMIT Physical Medicine & Rehabilitation; ATTEND Internal Medicine Pulmonary Disease
PROC: F07Z9FZ Gait Training/Functional Ambulation Treatment using Assistive, Adaptive, Supportive or Protective Equipment (ICD-10-PCS; principal; 2017-01-19)
PROC: F07Z5FZ Bed Mobility Treatment using Assistive, Adaptive, Supportive or Protective Equipment (ICD-10-PCS; 2017-01-19)
PROC: F07Z8FZ Transfer Training Treatment using Assistive, Adaptive, Supportive or Protective Equipment (ICD-10-PCS; 2017-01-19)
PROC: F08Z2FZ Grooming/Personal Hygiene Treatment using Assistive, Adaptive, Supportive or Protective Equipment (ICD-10-PCS; 2017-01-19)
PROC: F08Z0FZ Bathing/Showering Techniques Treatment using Assistive, Adaptive, Supportive or Protective Equipment (ICD-10-PCS; 2017-01-19)
PROC: F08Z1FZ Dressing Techniques Treatment using Assistive, Adaptive, Supportive or Protective Equipment (ICD-10-PCS; 2017-01-19)
DX: S72.141D Displaced intertrochanteric fracture of right femur, subsequent encounter for closed fracture with routine healing (principal); N39.0 Urinary tract infection, site not specified; B96.1 Klebsiella pneumoniae [K. pneumoniae] as the cause of diseases classified elsewhere; I10 Essential (primary) hypertension; M06.9 Rheumatoid arthritis, unspecified; E21.3 Hyperparathyroidism, unspecified; K21.9 Gastro-esophageal reflux disease without esophagitis; E78.5 Hyperlipidemia, unspecified; B96.20 Unspecified Escherichia coli [E. coli] as the cause of diseases classified elsewhere; D50.9 Iron deficiency anemia, unspecified; M81.0 Age-related osteoporosis without current pathological fracture; Z16.12 Extended spectrum beta lactamase (ESBL) resistance; R53.81 Other malaise; M79.7 Fibromyalgia; G89.4 Chronic pain syndrome; Z79.82 Long term (current) use of aspirin; W18.30XD Fall on same level, unspecified, subsequent encounter
CPT/HCPCS: 80053; 81001; 82306; 82330; 83970; 85025; 87081; 87086; 93971; 97110; 97112; 97116; 97150; 97163; 97530; 97535; 97542; A4310; J0696; J1170; J1650; J2185; J2916

== ENCOUNTER 2018-07-28 21:17 | Emergency (ER) | payer MEDICARE, OTHER ==
[~2018-07-28] VITALS: Ht 152.4 cm; Wt 55.5 kg
[~2018-07-28 21:17] MED LIST changes: -ASPI-664 PO; +ASPI81TA52 PO; +BENA10TA4 PO; -BENA10TA48 PO; -FURO40TA4 PO; -HYDR-3498 PO; +HYDR-3601 PO; -LOSA100T7 PO; -MYL80 PO; -OMEP40CA6 PO; +SIME80TA60 PO
[2018-07-28 21:25] VITALS: Ht 152.4 cm; Wt 55.5 kg
[2018-07-28] MEDS ORDERED: KETOROLAC 15 MG INJ IV STA (21:47)
[2018-07-28] MEDS ORDERED: SOD CHLORIDE 0.9% 500 ML IV ONE (22:00)
[2018-07-28] MEDS ORDERED: FENTAnyl 50 MCG/ML VIAL IV ONE (22:30)
[2018-07-28] MEDS ORDERED: MINERAL OIL 133 ML ENEMA PR ONE (22:30)
--- NOTE | 2018-07-29 01:05 | ERD ---
ER Documentation Chief Complaint Chief Complaint Left foot pain HPI This is an 87-year-old female with a past medical history of hypertension, hyperlipidemia, heart disease, chronic anemia, previous right hip fracture status post repair with chronic arthritis on Plaquenil, chronic lower extremity muscle spasms and neuropathy who is presenting with an exacerbated episode of left foot spasm and cramping, beginning this evening, waxing and waning in nature. The patient reports that this happens occasionally and she needs to come to the emergency department to help with the pain. The patient took 2 Vicodin 5 mg tablets a few hours prior to arrival to help with the pain, but it only provided mild relief. The patient does not endorse any trauma or injury. She does not endorse any falling. The patient is typically ambulatory with a walker. She does not endorse any focal deficits at this time. She does not endorse any weakness or numbness or tingling to the face or extremities. The patient has a secondary complaint of chronic constipation. She reports general abdominal discomfort with no significant pain. She endorses poor appetite and does not drink enough water. She denies any changes to urination. The patient denies feeling sick recently. The patient denies fever or chills. The patient has had no headache or vision changes. The patient does not endorse neck or back pain. The patient denies lightheadedness or dizziness. The patient has had no chest pain or trouble breathing. The patient denies nausea or vomiting. ROS All systems reviewed and are negative except as per history of present illness. Medications Home Meds Active Scripts Ferrous Sulfate* (Ferrous Sulfate*) 325 Mg Tabec, 325 MG PO BID, #60 TAB Prov:GARZA,SERAFIN V. SURGICAL ONCOLOGIST 01/19/17 Furosemide* (Lasix*) 20 Mg Tablet, 20 MG PO DAILY, #30 TAB Prov:GARZA,SERAFIN V. SURGICAL ONCOLOGIST 01/19/17 Pantoprazole* (Protonix*) 40 Mg Tablet.dr, 40 MG PO DAILY, #30 TAB Prov:GARZA,SERAFIN V. SURGICAL ONCOLOGIST 01/19/17 Simethicone* (Mylicon*) 80 Mg Tab, 80 MG PO Q6H PRN for DISTENSION/GAS/BLOATING, #30 TAB Prov:GARZA,SERAFIN V. SURGICAL ONCOLOGIST 01/19/17 Magnesium Hydroxide* (Joaquin' MOM*) 30 Ml Susp, 30 ML PO DAILY PRN for CONSTIPATION for 30 Days Prov:SERAFIN GARZA V. SURGICAL ONCOLOGIST 01/19/17 [Calcium Carbonate] 1.25 GM TAB No Conflict Check, 1.25 GM PO DAILY, #30 Prov:SERAFIN GARZA V. SURGICAL ONCOLOGIST 01/19/17 Hydrocodone Bit-Acetaminophen (Hydrocodone Bit-APAP) 5-325MG Tablet, 1 TAB PO Q6H PRN for MODERATE PAIN LEVEL 4-6, #30 TAB Prov:SERAFIN GARZA V. SURGICAL ONCOLOGIST 01/19/17 Metoprolol Tartrate* (Lopressor*) 25 Mg Tab, 25 MG PO BID, #60 TAB Prov:ASHLEY GARZADYA V. SURGICAL ONCOLOGIST 01/19/17 Benazepril Hcl* (Benazepril Hcl*) 10 Mg Tablet, 10 MG PO DAILY, #30 TAB Prov:SUNNY GARZAA V. SURGICAL ONCOLOGIST 01/19/17 Reported Medications Gabapentin* (Gabapentin*) 400 Mg Capsule, 400 MG PO TID, #90 CAP 01/12/17 Duloxetine Hcl* (Duloxetine Hcl*) 20 Mg Capsule.dr, 20 MG PO DAILY, #30 CAP 01/12/17 Potassium Chloride* (K-Dur*) 10 Meq Tab.prt.sr, 10 MEQ PO DAILY, TAB 01/12/17 Oxybutynin Chloride* (Ditropan* XL) 5 Mg Tabsr, 5 MG PO DAILY, TAB.SA 01/12/17 Hydroxychloroquine Sulfate* (Plaquenil*) 200 Mg Tab, 200 MG PO DAILY, TAB 01/12/17 Aspirin (Low Dose Aspirin) 81 Mg Tablet.dr, 81 MG PO DAILY, #30 TAB 01/12/17 Allergies Allergies: Coded Allergies: No Known Allergy (Unverified , 01/12/17) PMhx/Soc History of Surgery: Yes (Rt ORIF hip on 01/[address] Chandra) Anesthesia Reaction: No Hx Neurological Disorder: No Hx Respiratory Disorders: No Hx Cardiac Disorders: Yes (HTN, DISLIPIDEMIA) Hx Psychiatric Problems: No Hx Miscellaneous Medical Probl: Yes (Rt hip intertrochanteric fx, arthritis, anemia, GERD) Hx Alcohol Use: No Hx Substance Use: No Hx Tobacco Use: No Smoking Status: Never smoker FmHx Family History: No diabetes Physical Exam Vitals Vital Signs Date Temp Pulse Resp B/P (MAP) Pulse Ox O2 O2 Flow FiO2 Time Delivery Rate 07/28/18 98.9 91 20 124/63 99 Room Air 22:00 (83) 07/28/18 100.8 93 20 115/56 94 21:25 (75) Physical Exam Const: No apparent distress, well-developed, well-nourished Head: Normocephalic, Atraumatic Eyes: Normal Conjunctiva. Extraocular movements intact. Pupils equal, round and reactive to light ENT: Normal External Ears, Nose and Mouth. Neck: Full range of motion. No meningismus. Resp: Clear to auscultation bilaterally, No wheezes, rales or rhonchi Cardio: Regular rate and rhythm. No murmurs, rubs or gallops Abd: Soft, non tender, non distended. Normal bowel sounds Skin: No petechiae or rashes Back: No midline tenderness. No CVA tenderness Ext: No cyanosis, or edema. Intermittent left foot spasm. Neur: Awake and alert. Cranial nerves intact. No facial droop. Normal strength, sensation and coordination. Psych: Normal Mood and Affect Result Diagram: 07/28/18220807/28/182208 Results 24 hrs Laboratory Tests Test 07/28/18 22:09 White Blood Count 8.1 10^3/ul Red Blood Count 3.98 10^6/ul Hemoglobin 10.6 g/dl Hematocrit 33.5 % Mean Corpuscular Volume 84.2 fl Mean Corpuscular Hemoglobin 26.6 pg Mean Corpuscular Hemoglobin Concent 31.6 g/dl Red Cell Distribution Width 14.1 % Platelet Count 173 10^3/UL Mean Platelet Volume 10.1 fl Immature Granulocytes % 0.200 % Neutrophils % 78.8 % Lymphocytes % 10.1 % Monocytes % 9.8 % Eosinophils % 0.5 % Basophils % 0.6 % Nucleated Red Blood Cells % 0.0 /100WBC Immature Granulocytes # 0.020 10^3/ul Neutrophils # 6.4 10^3/ul Lymphocytes # 0.8 10^3/ul Monocytes # 0.8 10^3/ul Eosinophils # 0.0 10^3/ul Basophils # 0.1 10^3/ul Nucleated Red Blood Cells # 0.0 10^3/ul Sodium Level 129 mmol/L Potassium Level 5.7 mmol/L Chloride Level 98 mmol/L Carbon Dioxide Level 25 mmol/L Anion Gap 6 Blood Urea Nitrogen 25 mg/dl Creatinine 1.33 mg/dl Est Glomerular Filtrat Rate mL/min mL/min Glucose Level 98 mg/dl Calcium Level 8.7 mg/dl Current Medications Medications Dose Sig/Mariaa Start Time Status Last (Trade) Ordered Route PRN Stop Time Admin Dose Reason Admin Ketorolac 15 mg ONCE STAT 07/28/18 DC 07/28/18 Tromethamine IV 21:47 22:06 (Toradol) 07/28/18 21:48 Sodium 500 ml @ Q1H ONCE 07/28/18 DC 07/28/18 Chloride 500 mls/hr IV 22:00 22:06 07/28/18 22:59 Fentanyl 25 mcg ONCE ONCE 07/28/18 DC 07/28/18 (Sublimaze) IV 22:30 22:45 07/28/18 22:31 Mineral Oil 133 ml ONCE ONCE 07/28/18 DC (Fleet DE 22:30 Mineral Oil 07/28/18 22:31 Enema) Procedures/MDM MDM The patient's presentation warrants further investigation. Previous medical records, if available, were reviewed. LABS The patient's laboratory testing was obtained and reviewed. No emergent treatment was required unless described below. CBC: No E/o of systemic infection or severe anemia or thrombocytopenia. Mild normocytic anemia. BMP: Mild hyponatremia, mild hyperkalemia, mild elevation of BUN and creatini ne indicating mild acute kidney injury, all likely associated with dehydration. No E/o severe acidosis or alkalosis or renal failure or diabetic ketoacidosis IMAGING Imaging and Radiology interpretation reviewed. KUB FINDINGS: No evidence of air-fluid level or distended bowel loops to suggest sm all bowel obstruction. Mild constipation. No definite radiopaque calculi are seen in the distribution of the kidneys, ureters, or urinary bladder. No soft tissue abnormalities. No radiopaque foreign bodies. IMPRESSION: No radiographic evidence of small bowel obstruction. Mild constipation. Electronically viewed and signed by .Loy Decker MD, MD on 07/28/2018 23:05 TREATMENT/DISPOSITION The patient presents for multiple complaints. Her primary complaint is a muscle spasm. I believe this is related to dehydration. The patient does have evidence of dehydration, including hyponatremia and mild acute kidney injury. The patient also has a mildly elevated potassium, which does not require emergent treatment. The patient was given IV fluids in the emergency department. The patient was also given Toradol and a dose of fentanyl in the emergency department as well for pain control. The patient responded well to this. There is no evidence of trauma or injury. I do not see any evidence of soft tissue infection. I have low suspicion for DVT. The patient also has evidence of constipation. This could be related to her dehydration as well. This could also be related to her opiate use at home. An x-ray was performed that was reassuring aside from mild constipation. The patient was given an enema in the emergency department. The patient will be given a prescription for MiraLAX. The patient reportedly had a fever when she first arrived. This was rechecked and came down nicely. The patient does not have symptoms concerning for a systemic infection. The patient has no leukocytosis. The patient does not meet criteria for a systemic inflammatory response syndrome. I have low suspicion for sepsis. I do not feel the patient's presentation warrants antibiotics. Upon reevaluation of the patient, symptoms have improved. No emergent diagnoses were identified. At this time, I feel that the patient stable for discharge. The patient was instructed to follow-up with a primary care physician in 1-3 days. The patient will be given strict precautions with which to return to the emergency department. Prescriptions: MiraLAX The patient's blood pressure was elevated at greater than 120/80 while in the emergency department. The patient was otherwise stable with no evidence of hypertensive urgency or emergency. The patient does not require admission for b lood pressure control. I have discussed with the patient the risks of hypertension. I have instructed the patient to return to the ER for any new or worsening symptoms including chest pain, shortness of breath, headache, blurred vision, confusion, nausea, vomiting or LOC. I have advised the patient to follow up with the primary care physician for outpatient monitoring and treatment for hypertension in 1-3 days. Disclaimer: Inadvertent spelling and grammatical errors are likely due to EHR/dictation software use and do not reflect on the overall quality of patient care. Note that the electronic time recorded on this note does not necessarily reflect the actual time of the patient encounter. Departure Diagnosis: Primary Impression: Muscle cramps Additional Impressions: Left leg pain Dehydration Constipation Constipation type: unspecified constipation type Qualified Codes: K59.00 - Constipation, unspecified Hyponatremia Hyperkalemia Acute kidney injury Condition: Stable EDWARD BRADFORD MD Jul 29, 2018 00:55
[2018-07-29] MEDS ORDERED: POLY17PO6 PO (01:07)
[2018-07-29 01:15] VITALS: BP 105/50; PULSE 85; RESP 17
[2018-07-29] MEDS ORDERED: FENTAnyl 50 MCG/ML VIAL IV ONE (01:30)
== END 2018-07-29 01:55 | disposition home or self-care (01) ==
LOC: E/R 21:17
DX: R25.2 Cramp and spasm (principal); M79.605 Pain in left leg; E86.0 Dehydration; K59.00 Constipation, unspecified; E87.1 Hypo-osmolality and hyponatremia; E87.5 Hyperkalemia; N17.9 Acute kidney failure, unspecified; I10 Essential (primary) hypertension; Z79.82 Long term (current) use of aspirin
CPT/HCPCS: 36415; 74018; 80048; 85025; 96374; 96375; 96376; 99284; J1885; J3010; J7040

== ENCOUNTER 2018-09-03 10:46 | Inpatient (IN) | payer MEDICARE, OTHER ==
[~2018-09-03] VITALS: Ht 152.4 cm; Wt 53.0 kg
[~2018-09-03 10:46] MED LIST changes: +POLY17PO6 PO
[2018-09-03] MEDS ORDERED: morphine 4 MG/ML VIAL IV STA (11:04)
[2018-09-03] MEDS ORDERED: ONDANSETRON 4 MG INJ IV STA (11:04)
--- NOTE | 2018-09-03 11:17 | ERD ---
ER Documentation Chief Complaint Chief Complaint ABDOMINAL PAIN WITH NO BM X 1 DAYS HPI The patient is a 87-year-old female, presenting to the ER because of diffuse abdominal pain with constipation for 1 day. She had similar symptoms previously, denies fever, chills, neck pain, chest pain, dyspnea, complains of vomiting couple times last night, denies hematemesis/hematochezia, dysuria. She does not smoke nor drink Past medical history: Hypertension, dyslipidemia, anemia, GERD Past surgical history: Right hip ORIF, cholecystectomy ROS All systems reviewed and are negative except as per history of present illness. Medications Home Meds Active Scripts Hydrocodone Bit-Acetaminophen (Hydrocodone Bit-APAP) 5-325MG Tablet, 1 TAB PO Q6H PRN for MODERATE PAIN LEVEL 4-6, #30 TAB Prov:SERAFIN GARZA V. [employer] 01/19/17 Metoprolol Tartrate* (Lopressor*) 25 Mg Tab, 25 MG PO BID, #60 TAB Prov:SERAFIN GARZA V. [employer] 01/19/17 Benazepril Hcl* (Benazepril Hcl*) 10 Mg Tablet, 10 MG PO DAILY, #30 TAB Prov:SERAFIN GARZA V. [employer] 01/19/17 Reported Medications Carvedilol* (Coreg CR*) 10 Mg Capsr, 10 MG PO DAILY, #30 CAP 09/03/18 Tramadol Hcl* (Ultram*) 50 Mg Tablet, 50 MG PO Q6H PRN for PAIN, TAB 09/03/18 Phenazopyridine Hcl* (Phenazopyridine Hcl*) 100 Mg Tablet, 100 MG PO TID, TAB 09/03/18 Nifedipine* (Nifedipine ER*) 60 Mg Tablet.sa, 60 MG PO DAILY, TAB.SA 09/03/18 Folic Acid* (Folic Acid*) 1 Mg Tablet, 1 MG PO DAILY, TAB 09/03/18 Duloxetine Hcl* (Duloxetine Hcl*) 30 Mg Capsule.dr, 30 MG PO DAILY, #30 CAP 09/03/18 Oxybutynin Chloride* (Ditropan* XL) 5 Mg Tabsr, 5 MG PO DAILY, TAB.SA 01/12/17 Hydroxychloroquine Sulfate* (Plaquenil*) 200 Mg Tab, 200 MG PO DAILY, TAB 01/12/17 Discontinued Reported Medications Gabapentin* (Gabapentin*) 400 Mg Capsule, 400 MG PO TID, #90 CAP 01/12/17 Duloxetine Hcl* (Duloxetine Hcl*) 20 Mg Capsule.dr, 20 MG PO DAILY, #30 CAP 01/12/17 Potassium Chloride* (K-Dur*) 10 Meq Tab.prt.sr, 10 MEQ PO DAILY, TAB 01/12/17 Aspirin (Low Dose Aspirin) 81 Mg Tablet.dr, 81 MG PO DAILY, #30 TAB 01/12/17 Discontinued Scripts Polyethylene Glycol* (Miralax*) 17 Gm Powd.pack, 17 GM PO DAILY for 7 Days, PACKET Prov:EDWARD BRADFORD MD 07/29/18 Ferrous Sulfate* (Ferrous Sulfate*) 325 Mg Tabec, 325 MG PO BID, #60 TAB Prov:GARZA,SERAFIN V. [employer] 01/19/17 Furosemide* (Lasix*) 20 Mg Tablet, 20 MG PO DAILY, #30 TAB Prov:GARZA,SERAFIN V. [employer] 01/19/17 Pantoprazole* (Protonix*) 40 Mg Tablet., 40 MG PO DAILY, #30 TAB Prov:GARZA,SERAFIN V. [employer] 01/19/17 Simethicone* (Mylicon*) 80 Mg Tab, 80 MG PO Q6H PRN for DISTENSION/GAS/BLOATING, #30 TAB Prov:GARZA,SERAFIN V. [employer] 01/19/17 Magnesium Hydroxide* (Joaquin' MOM*) 30 Ml Susp, 30 ML PO DAILY PRN for CONSTIPATION for 30 Days Prov:GARZA,SERAFIN V. [employer] 01/19/17 [Calcium Carbonate] 1.25 GM TAB No Conflict Check, 1.25 GM PO DAILY, #30 Prov:GARZA,SERAFIN V. [employer] 01/19/17 Allergies Allergies: Coded Allergies: No Known Allergy (Unverified , 09/03/18) PMhx/Soc History of Surgery: Yes (Rt ORIF hip on 01/[address] Chandra) Anesthesia Reaction: No Hx Neurological Disorder: No Hx Respiratory Disorders: No Hx Cardiac Disorders: Yes (HTN, DISLIPIDEMIA) Hx Psychiatric Problems: No Hx Miscellaneous Medical Probl: Yes (Rt hip intertrochanteric fx, arthritis, anemia, GERD) Hx Alcohol Use: No Hx Substance Use: No Hx Tobacco Use: No Smoking Status: Never smoker Physical Exam Vitals Vital Signs Date Temp Pulse Resp B/P (MAP) Pulse Ox O2 O2 Flow FiO2 Time Delivery Rate 09/03/18 98.5 104 28 144/77 98 11:01 (99) 09/03/18 102 32 144/77 98 Room Air 10:51 (99) Physical Exam Const: No acute respiratory distress. Head: Atraumatic. Eyes: Normal Conjunctiva. ENT: Normal External Ears, Nose and Mouth. Neck: Full range of motion. No meningismus. Resp: Clear to auscultation bilaterally. Cardio: Regular rate and rhythm Abd: Soft, non distended, normal bowel sounds, vague and diffuse abdominal discomfort, no rigidity/rebound/CVA tenderness. Skin: No petechiae or rashes. Back: No midline or flank tenderness. Ext: No cyanosis, or edema. Neur: Awake and alert. No focal deficit Psych: Normal Mood and Affect. Result Diagram: 09/03/18 1104 09/03/18 1104 Results 24 hrs Laboratory Tests Test 09/03/18 11:04 09/03/18 12:42 White Blood Count 18.1 10^3/ul Red Blood Count 4.82 10^6/ul Hemoglobin 12.7 g/dl Hematocrit 39.4 % Mean Corpuscular Volume 81.7 fl Mean Corpuscular Hemoglobin 26.3 pg Mean Corpuscular Hemoglobin Concent 32.2 g/dl Red Cell Distribution Width 13.6 % Platelet Count 291 10^3/UL Mean Platelet Volume 9.7 fl Immature Granulocytes % 0.800 % Neutrophils % 82.1 % Lymphocytes % 11.6 % Monocytes % 4.7 % Eosinophils % 0.4 % Basophils % 0.4 % Nucleated Red Blood Cells % 0.0 /100WBC Immature Granulocytes # 0.140 10^3/ul Neutrophils # 14.8 10^3/ul Lymphocytes # 2.1 10^3/ul Monocytes # 0.8 10^3/ul Eosinophils # 0.1 10^3/ul Basophils # 0.1 10^3/ul Nucleated Red Blood Cells # 0.0 10^3/ul Sodium Level 139 mmol/L Potassium Level 3.8 mmol/L Chloride Level 103 mmol/L Carbon Dioxide Level 20 mmol/L Anion Gap 16 Blood Urea Nitrogen 18 mg/dl Creatinine 0.79 mg/dl Est Glomerular Filtrat Rate mL/min mL/min Glucose Level 179 mg/dl Calcium Level 9.7 mg/dl Total Bilirubin 0.6 mg/dl Direct Bilirubin 0.00 mg/dl Indirect Bilirubin 0.6 mg/dl Aspartate Amino Transf (AST/SGOT) 23 IU/L Alanine Aminotransferase (ALT/SGPT) 13 IU/L Alkaline Phosphatase 69 IU/L Troponin I < 0.012 ng/ml Total Protein 8.0 g/dl Albumin 4.6 g/dl Globulin 3.40 g/dl Albumin/Globulin Ratio 1.35 Lipase 97 U/L Bedside Urine pH (LAB) 7.0 Bedside Urine Protein (LAB) 1+ Bedside Urine Glucose (UA) Negative Bedside Urine Ketones (LAB) Trace Bedside Urine Blood 1+ Bedside Urine Nitrite (LAB) Positive Bedside Urine Leukocyte Esterase (L 3+ Current Medications Medications Dose Sig/Mariaa Start Time Status Last (Trade) Ordered Route PRN Stop Time Admin Dose Reason Admin Morphine 4 mg ONCE STAT 09/03/18 DC 09/03/18 Sulfate IV 11:04 09/03/18 11:10 (morphine) 11:05 Ondansetron 4 mg ONCE STAT 09/03/18 DC 09/03/18 HCl (Zofran IV 11:04 09/03/18 11:10 Inj) 11:05 Bisacodyl 10 mg ONCE ONCE 09/03/18 (Dulcolax PA 13:00 09/03/18 Supp) 13:01 Sodium 133 ml ONCE ONCE 09/03/18 Biphosphate/ PA 13:00 09/03/18 Sodium 13:01 Phosphate (Fleet Enema) Piperacillin 100 ml @ ONCE ONCE 09/03/18 Sod/ 200 mls/hr IVPB 13:00 09/03/18 Tazobactam 13:29 Sod Procedures/MDM EKG: Read by emergency physician Rate/Rhythm: Sinus tachycardia 103 beats/min QRS, ST, T-waves: No ST elevation, no T inversion Impression: Abnormal EKG [place] [id number] Radiology Main Line: [phone] DIAGNOSTIC IMAGING REPORT Patient: JAVED WEBSTER : 1930 Age: 87 Sex: F MR #: [id number] DOS: 09/03/18 1123 Ordering MD: DEDE PEREZ MD Location: E/R Room/Bed: AMENDMENT: 09/03/2018 12:15:14 PM Giovany Nicole M.d 4. Small right inguinal hernia containing nondistended segment of distal small bowel. No evidence of bowel obstruction. PROCEDURE: CT Abdomen and Pelvis without intravenous contrast. CLINICAL INDICATION: Abdominal pain TECHNIQUE: CT scan of the abdomen and pelvis without intravenous contrast was performed on a multi-detector high-resolution CT scanner. Coronal and sagittal reformatted images were obtained from the axial source images. DICOM images are available. CTDIvol 9.96 mGy, and DLP 504.88 mGy.cm. One or more of the following dose reduction techniques were used: - Automated exposure control. - Adjustment of the mA and/or kV according to patient size. - Use of iterative reconstruction technique. COMPARISON: CT 09/13/2014 FINDINGS: In the absence of intravenous contrast, the study constitutes a limited assessment of the solid organs, bowel and vessels. Lower thorax: There are coronary artery calcifications. Liver: Normal. Biliary: Postsurgical changes of cholecystectomy. Stable prominence of the bile ducts, likely related to post-cholecystectomy state. Pancreas: Normal. Spleen: Normal. Adrenal Glands: Stable mild low density thickening of the adrenal glands, likely benign. Urinary: There are several bilateral nonobstructing renal calcifications, measuring up to of 5 mm, similar to prior exam . However, there is bilateral mild hydroureteronephrosis. No distal obstructing ureteral stone is seen. Bladder is mildly distended. Gastrointestinal: The rectum is distended with moderate to large amount of stool. Nondistended segment of distal small bowel in a small right inguinal hernia. No evidence of bowel obstruction. Appendix is identified and appears un remarkable. Lymph nodes: No enlarged abdominal or pelvic lymph nodes. Vascular: There are atherosclerotic calcifications of the aorta and iliac branches, without evidence of aneurysm. Peritoneum/mesentery: No free fluid or free air. Reproductive organs: Normal. Musculoskeletal: Degenerative changes of the spine. Bilateral hip arthroplasties are seen, causing streak artifact partially obscuring the pelvis. IMPRESSION: 1. Rectum is distended with a moderate to large amount of stool. Correlate for fecal impaction and constipation. 2. Mild bilateral hydroureteronephrosis. Mild distension of the bladder . No obstructing ureteral stones are seen. Correlate for bladder outlet obstruction. 3. Several stable bilateral nonobstructing renal stones. RPTAT: HH Giovany Nicole Physician Date Time Electronically viewed and signed by Giovany Nicole Physician on 09/03/2018 12:15 HtN/ CC: DEDE PEREZ MD [id number] MEDICAL MAKING DECISION: The patient is a 87-year-old female, presenting with acute cystitis, acute constipation. She was treated with morphine 4 mg IV for pain, Zofran 4 mg IV for nausea, Zosyn IV for acute cystitis. I have ordered for Dulcolax suppository and Fleet enema, however she had a bowel movement prior to receiving dose aforementioned treatment. The differential diagnoses considered include but are not limited to constipation obstipation, cholelithiasis, cholecystitis, choledocholithiasis, cholangitis, pancreatitis, hepatitis, gastritis, peptic ulcer disease, gastric ulcer, appendicitis, cystitis, diverticulitis, partial small bowel obstruction. Departure Diagnosis: Primary Impression: UTI (lower urinary tract infection) Additional Impression: Constipation Condition: Stable Comments I discussed the findings with the patient. I discussed the patient with the hospitalist Dr Mcmillan at 1 pm who was made aware of the lab, the treatment, the patient condition. The patient is admitted to [facility] Disclaimer: Inadvertent spelling and grammatical errors are likely due to EHR/dictation software use and do not reflect on the overall quality of patient care. Also, please note that the electronic time recorded on this note does not necessarily reflect the actual time of the patient encounter. DEDE PEREZ MD Sep 03, 2018 11:17
[2018-09-03] MEDS ORDERED: FOLI-49 PO (11:35)
[2018-09-03] MEDS ORDERED: DULO30CA47 PO (11:35)
[2018-09-03] MEDS ORDERED: NIFE60TA18 PO (11:38)
[2018-09-03] MEDS ORDERED: PHEN-716 PO (11:38)
[2018-09-03] MEDS ORDERED: TRAM50TA PO (11:40)
[2018-09-03] MEDS ORDERED: CORE10CR PO (11:42)
[2018-09-03] MEDS ORDERED: BISACODYL 10 MG SUPP PR ONE (13:00)
[2018-09-03] MEDS ORDERED: PIPER-TAZO 3.375 GM IV (PMX) 100 ML IVPB ONE (13:00)
[2018-09-03] MEDS ORDERED: NA PHOSPHATE/BIPHOS 133 ML ENEMA PR ONE (13:00)
[2018-09-03] MEDS ORDERED: MAGNESIUM HYDROXIDE 30ML CUP PO PRN (14:30)
[2018-09-03] MEDS ORDERED: NA PHOSPHATE/BIPHOS 133 ML ENEMA PR PRN (14:30)
[2018-09-03] MEDS ORDERED: ACETAMINOPHEN 325 MG TAB PO PRN (14:30)
[2018-09-03] MEDS ORDERED: NACL 0.9% 3 ML SYG IV SCH (14:30)
[2018-09-03] MEDS ORDERED: BISACODYL 10 MG SUPP PR PRN (14:30)
[2018-09-03] MEDS ORDERED: ONDANSETRON 4 MG INJ IV PRN (14:30)
[2018-09-03 15:13] VITALS: Ht 152.4 cm; Wt 53.0 kg
[2018-09-03 15:14] VITALS: BP 140/65; PULSE 95; RESP 18
[2018-09-03] MEDS: LINEZOLID 600 MG/D5W (PMX) 300 ML IVPB SCH ×2 (15:30→23:00)
[2018-09-03] MEDS: SENNA/DOCUSATE NA (8.6MG/50MG) TAB PO SCH ×2 (15:30→20:33)
--- NOTE | 2018-09-03 17:44 | HP ---
Date/Time of Note Date/Time of Note DATE: 09/03/18 TIME: 17:35 Assessment/Plan VTE Prophylaxis SCD applied (from Nsg): Yes Pharmacological prophylaxis: LMWH Lines/Catheters IV Catheter Type (from Nrsg): Saline Lock Urinary Cath still in place: No Assessment/Plan Assessment/Plan 1. Acute abdominal pain with N/V - CT scan abd/pelvis shows constipation vs fecal impaction - Will give bowel regime and monitor for improvement in symptoms - Zofran PRN nausea 2. 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 Recently treated with antibiotics so cultures may not be accurate - UA results noted and cx sent - ID consultation placed for antibiotic recommendations - pyridium PRN for dysuria - Started on IV antibiotics 3. Leukocytosis - most likely secondary to #1 and #2 - monitor 4. HTN - continue home medications and adjust as needed - patient concerned she is taking too many different medications 5. Chronic constipation - bowel regime on board 6. Arthritis - on tramadol as outpatient. Will continue 7. Anemia - monitor H/H - continue folic acid 8. Diet - Cardiac 9. Disposition - Admit to Med surg for treatment of UTI and constipation Result Diagram: 09/03/18 1104 09/03/18 1104 Results 24hrs Laboratory Tests Test 09/03/18 11:04 09/03/18 12:37 09/03/18 12:42 White Blood Count 18.1 #H Red Blood Count 4.82 # Hemoglobin 12.7 Hematocrit 39.4 Mean Corpuscular Volume 81.7 L Mean Corpuscular Hemoglobin 26.3 L Mean Corpuscular 32.2 Hemoglobin Concent Red Cell Distribution Width 13.6 Platelet Count 291 # Mean Platelet Volume 9.7 Immature Granulocytes % 0.800 H Neutrophils % 82.1 H Lymphocytes % 11.6 L Monocytes % 4.7 Eosinophils % 0.4 Basophils % 0.4 Nucleated Red Blood Cells % 0.0 Immature Granulocytes # 0.140 H Neutrophils # 14.8 H Lymphocytes # 2.1 Monocytes # 0.8 Eosinophils # 0.1 Basophils # 0.1 Nucleated Red Blood Cells # 0.0 Sodium Level 139 Potassium Level 3.8 Chloride Level 103 Carbon Dioxide Level 20 L Anion Gap 16 H Blood Urea Nitrogen 18 Creatinine 0.79 Est Glomerular Filtrat Rate mL/min Glucose Level 179 Calcium Level 9.7 Total Bilirubin 0.6 Direct Bilirubin 0.00 Indirect Bilirubin 0.6 Aspartate Amino 23 Transf (AST/SGOT) Alanine 13 Aminotransferase (ALT/SGPT) Alkaline Phosphatase 69 Troponin I < 0.012 Total Protein 8.0 Albumin 4.6 Globulin 3.40 H Albumin/Globulin Ratio 1.35 Lipase 97 Urine Color JIMBO Urine Clarity SLIGHTLY CLOUDY A Urine pH 7.0 Urine Specific [place] 1.008 Urine Ketones TRACE A Urine Nitrite POSITIVE A Urine Bilirubin NEGATIVE Urine Urobilinogen 2+ H Urine Leukocyte Esterase 3+ H Urine Microscopic RBC 1 Urine Microscopic WBC > 182 H Urine Bacteria FEW A Urine Hemoglobin 1+ H Urine Glucose NEGATIVE Urine Total Protein 1+ H Bedside Urine pH (LAB) 7.0 Bedside Urine Protein (LAB) 1+ H Bedside Urine Glucose (UA) Negative Bedside Urine Ketones (LAB) Trace H Bedside Urine Blood 1+ H Bedside Urine Nitrite (LAB) Positive H Bedside Urine Leukocyte Esterase 3+ H (L HPI/ROS Admit Date/Time Admit Date/Time Sep 03, 2018 at 12:56 Hx of Present Illness 87 yo F with PMH HTN, HLD, anemia, arthritis, GERD, and chronic constipation presented to ED with worsening abdominal pain and nausea for the past 2 days. Patient states she has chronic constipation and usually take daily medication to help move her bowels but last BM was 2 days ago. She admits to discomfort with eating and nausea with vomiting. Vomited 3 times in the past 2 days since symptoms started. Patient also admits to dysuria and suprapubic discomfort for the past 2 weeks. States has been on antibiotics for the past couple days but unsure name and did not have a bottle of antibiotics in her possession. She did have pyridium however. Patient has a history of VRE UTI in the past. Patient admits to subjective fevers, but denies any chest pain, shortness of breath, dizziness, diarrhea, blood in urine, or LOC. Patient usually ambulated with walker. ROS All 12 systems reviewed and pertinent positives as per HPI. All others negative. Constitutional: febrile, nausea Eyes: No discharge Respiratory: No cough, No shortness of breath, No sputum, No wheezing Cardiovascular: No chest pain, No edema, No lightheadedness, No palpitations Gastrointestinal: pain, constipation, nausea, vomiting; No blood, No diarrhea, No passing stool Genitourinary: dysuria; No discharge, No hematuria Musculoskeletal: no complaints Skin: No bruising, No laceration, No rash Neurologic: No confusion, No dizziness, No focal-weakness, No syncope Endocrine: no complaints Lymphatic: no complaints Psychological: nl mood/affect Immunologic: no complaints PMH/Family/Social Past Medical History Medical History: GERD, high cholesterol, hypertension, other (anemia, chronic constipation) Medications Current Medications Benazepril HCl (Lotensin) 10 mg DAILY PO ; Start 09/04/18 at 09:00 Carvedilol (Coreg Cr) 10 mg DAILY PO ; Start 09/04/18 at 09:00 Duloxetine HCl (Cymbalta) 30 mg DAILY PO ; Start 09/04/18 at 09:00 Folic Acid (Folic Acid) 1 mg DAILY PO ; Start 09/04/18 at 09:00 Nifedipine (Procardia Xl) 60 mg DAILY PO ; Start 09/04/18 at 09:00 Oxybutynin Chloride (Ditropan Xl) 5 mg DAILY PO ; Start 09/04/18 at 09:00 Tramadol HCl (Ultram) 50 mg Q6H PRN PO PAIN; Start 09/03/18 at 14:00 Linezolid 300 ml @ 300 mls/hr Q12 IVPB Last administered on 09/03/18at 15:30; Admin Dose 300 MLS/HR; Start 09/03/18 at 14:30 IV Flush (NS 3 ml) 3 ml PER PROTOCOL IV ; Start 09/03/18 at 14:30 Ondansetron HCl (Zofran Inj) 4 mg Q6H PRN IV NAUSEA/VOMITING; Start 09/03/18 at 14:30 Acetaminophen (Tylenol Tab) 650 mg Q6H PRN PO .PAIN 1-3 OR TEMP; Start 09/03/18 at 14:30 Magnesium Hydroxide (Milk Of Mag) 30 ml DAILY PRN PO .CONSTIPATION; Start 09/03/18 at 14:30 Bisacodyl (Dulcolax Supp) 10 mg DAILY PRN NC .CONSTIPATION; Start 09/03/18 at 14:30 Sodium Biphosphate/ Sodium Phosphate (Fleet Enema) 133 ml DAILY PRN NC .CONSTIPATION; Start 09/03/18 at 14:30 Pantoprazole (Protonix Tab) 40 mg DAILY@06 PO ; Start 09/04/18 at 06:00 Enoxaparin Sodium (Lovenox) 40 mg DAILY SC ; Start 09/04/18 at 09:00 Senna/Docusate Sodium (Senokot-S) 1 tab BID PO Last administered on 09/03/18at 15:30; Admin Dose 1 TAB; Start 09/03/18 at 14:30 Coded Allergies: No Known Allergy (Unverified , 09/03/18) Past Surgical History Past Surgical Hx: cholecystectomy, other Family History Significant Family History: hypertension, other Social History Alcohol Use: none Smoking Status: Never smoker Drug Use: none Exam/Review of Systems Vital Signs Vitals Vital Signs Date Temp Pulse Resp B/P (MAP) Pulse Ox O2 O2 Flow FiO2 Time Delivery Rate 09/03/18 97.9 95 18 140/65 96 Room Air 15:14 (90) Exam Exam General: Patient is laying in bed and answers questions appropriately. no acute distress Mentation: Patient is alert and oriented x4 Head: Normocephalic atraumatic Eyes: EOMI, pupils reactive to light Neck: Supple, nontender, midline Respiratory: Clear to auscultation bilaterally. no wheezing or rhonchi Cardiovascular: regular rate and rhythm, no obvious murmurs Gastrointestinal: soft, tender to palpation diffusely with suprapubic discomfort, bowel sounds heard. no rebound or guarding Neurological: Moves all extremities spontaneously Skin: No new skin lesions Additional Comments Home medications reviewed AMENDMENT: 09/03/2018 12:15:14 PM Giovany Nicole M.d 4. Small right inguinal hernia containing nondistended segment of distal small bowel. No evidence of bowel obstruction. PROCEDURE: CT Abdomen and Pelvis without intravenous contrast. CLINICAL INDICATION: Abdominal pain TECHNIQUE: CT scan of the abdomen and pelvis without intravenous contrast was performed on a multi-detector high-resolution CT scanner. Coronal and sagittal reformatted images were obtained from the axial source images. DICOM images are available. CTDIvol 9.96 mGy, and DLP 504.88 mGy.cm. One or more of the following dose reduction techniques were used: - Automated exposure control. - Adjustment of the mA and/or kV according to patient size. - Use of iterative reconstruction technique. COMPARISON: CT 09/13/2014 FINDINGS: In the absence of intravenous contrast, the study constitutes a limited assessment of the solid organs, bowel and vessels. Lower thorax: There are coronary artery calcifications. Liver: Normal. Biliary: Postsurgical changes of cholecystectomy. Stable prominence of the bile ducts, likely related to post-cholecystectomy state. Pancreas: Normal. Spleen: Normal. Adrenal Glands: Stable mild low density thickening of the adrenal glands, likely benign. Urinary: There are several bilateral nonobstructing renal calcifications, measuring up to of 5 mm, similar to prior exam . However, there is bilateral mild hydroureteronephrosis. No distal obstructing ureteral stone is seen. Bladder is mildly distended. Gastrointestinal: The rectum is distended with moderate to large amount of stool. Nondistended segment of distal small bowel in a small right inguinal hernia. No evidence of bowel obstruction. Appendix is identified and appears unremarkable. Lymph nodes: No enlarged abdominal or pelvic lymph nodes. Vascular: There are atherosclerotic calcifications of the aorta and iliac branches, without evidence of aneurysm. Peritoneum/mesentery: No free fluid or free air. Reproductive organs: Normal. Musculoskeletal: Degenerative changes of the spine. Bilateral hip arthroplasties are seen, causing streak artifact partially obscuring the pelvis. IMPRESSION: 1. Rectum is distended with a moderate to large amount of stool. Correlate for fecal impaction and constipation. 2. Mild bilateral hydroureteronephrosis. Mild distension of the bladder . No obstructing ureteral stones are seen. Correlate for bladder outlet obstruction. 3. Several stable bilateral nonobstructing renal stones. RPTAT: HH Physician João Date Time Electronically viewed and signed by Giovany Nicole Physician on 09/03/2018 12:15 PAMELA SINGH MD Sep 03, 2018 17:44
[2018-09-03 20:00] VITALS: BP 138/63; PULSE 102; RESP 18
[2018-09-03] MEDS: traMADol 50 MG TAB PO PRN (20:37)
--- NOTE | 2018-09-03 21:03 | CONS ---
DATE OF ADMISSION: 09/03/2018 DATE OF CONSULTATION: 09/03/2018 TYPE OF CONSULTATION: Infectious disease. REASON FOR CONSULTATION: Antibiotic management. HISTORY OF PRESENT ILLNESS: Fiordaliza Sterling is an 87-year-old female who presents to the emergency ro om with diffuse abdominal pain and constipation of 1 day's duration. She denies fever or chills. Co mplains of vomiting a number of times last night. Denies hematemesis or melena or dysuria. Her past problems include: 1. Hypertension. 2. Dyslipidemia. 3. Anemia. 4. GERD. 5. Status post right hip ORIF. 6. Status post cholecystectomy. Acutely, the patient complains of abdominal pain with no bowel movements for 1 day. PAST MEDICAL HISTORY: Operations as outlined. FAMILY HISTORY: Noncontributory. SOCIAL HISTORY: She does not smoke, drink or abuse drugs. ALLERGIES: NONE TO PENICILLIN, SULFA OR FOODS. MEDICATIONS: Per chart. REVIEW OF SYSTEMS: Noncontributory. PHYSICAL EXAMINATION: GENERAL: The patient is a well-developed, well-nourished, elderly female who is in no acute distress . VITAL SIGNS: Stable. She is afebrile. SKIN: Without generalized rash. HEENT: Within normal limits. NECK: Supple. LYMPH NODES: None palpable. CHEST: Decreased breath sounds at the bases. HEART: Without murmur or gallop. ABDOMEN: Soft, nontender, nondistended, normal bowel sounds. She has some discomfort, but no rigidi ty, rebound or CVA tenderness. EXTREMITIES: Without cyanosis, clubbing or edema. RECTAL AND GENITAL: Deferred. NEUROLOGIC: No focal neurological abnormalities. ANCILLARY LABORATORY DATA: White count of 18.1 with 82% neutrophils, H and H of 12.7 and 39.4, plate let count 291,000. BUN and creatinine is 18/0.79, random glucose 179. HOSPITAL COURSE: The patient was started on Zosyn. CT scan of the abdomen and pelvis without IV con trast shows postsurgical changes of cholecystectomy. Rectum is distended with moderate to large amou nt of stool, mild bilateral hydroureteronephrosis, mild distention of the bladder, no obstruction, co rrelate for bladder outlet obstruction, severe stable bilateral nonobstructing renal stones. The pat ient's urinalysis showed 3+ leukocyte esterase, greater than 182 white cells per high powered field. She has VRE in the past, recently treated with antibiotics. She was started on Pyridium for dysuria as well as Zosyn. We can add fosfomycin to her regimen in case she has VRE and await the results of her urine culture which is pending. I will dictate my findings to the hospitalist to Dr. Mcmillan. Dictated By: NORA DALTON MD, JD/NTS Conf#: [id number] DID#: [id number] CC: PAMELA MCMILLAN MD;*EndCC*
[2018-09-03] MEDS ORDERED: FOSFOMYCIN 3 GM PACKET PO ONE (21:30)
[2018-09-04 02:06] VITALS: BP 131/60; PULSE 100; RESP 18
[2018-09-04] MEDS: PANTOPRAZOLE (EC) 40 MG TAB PO SCH (06:29)
[2018-09-04 08:22] VITALS: BP 149/70; PULSE 100; RESP 18
--- NOTE | 2018-09-04 08:57 | PN ---
Date/Time of Note Date/Time of Note DATE: 09/04/18 TIME: 08:56 Assessment/Plan VTE Prophylaxis Risk score (from Ns)>0 risk: 4 SCD applied (from Ns): Yes Pharmacological prophylaxis: LMWH Lines/Catheters IV Catheter Type (from Nrsg): Saline Lock Urinary Cath still in place: No Assessment/Plan Assessment/Plan 1. Acute abdominal pain with N/V - CT scan abd/pelvis shows constipation vs fecal impaction - Patient having multiple BMs but still with discomfort. KUB ordered to assess - Zofran PRN nausea 2. UTI - ID on board and appreciate recommendations. Urine cx noted and antibiotics adjusted - ramirez placed given concern for bladder outlet obstruction. If no improvement with ramirez, will consult Urology for further recommendations 3. Leukocytosis - most likely secondary to #1 and #2 - monitor 4. HTN - continue home medications. Will increase carvedilol and wean off Benazepril given patient states she wants to be on less medications. 5. Chronic constipation - bowel regime on board 6. Arthritis - on tramadol as outpatient. Will continue 7. Anemia - monitor H/H - continue folic acid 8. Disposition - KUB ordered to assess fecal impaction given she has been having BMs - ramirez inserted for comfort in setting of possible bladder outlet obstruction Result Diagram: 09/04/18 0505 09/04/18 0504 Results 24hrs Laboratory Tests Test 09/03/18 11:04 09/03/18 12:37 09/03/18 12:42 09/04/18 05:04 White Blood Count 18.1 #H Red Blood Count 4.82 # Hemoglobin 12.7 Hematocrit 39.4 Mean Corpuscular 81.7 L Volume Mean Corpuscular 26.3 L Hemoglobin Mean Corpuscular 32.2 Hemoglobin Concent Red Cell 13.6 Distribution Width Platelet Count 291 # Mean Platelet 9.7 Volume Immature 0.800 H Granulocytes % Neutrophils % 82.1 H Lymphocytes % 11.6 L Monocytes % 4.7 Eosinophils % 0.4 Basophils % 0.4 Nucleated Red 0.0 Blood Cells % Immature 0.140 H Granulocytes # Neutrophils # 14.8 H Lymphocytes # 2.1 Monocytes # 0.8 Eosinophils # 0.1 Basophils # 0.1 Nucleated Red 0.0 Blood Cells # Sodium Level 139 137 Potassium Level 3.8 3.1 L Chloride Level 103 102 Carbon Dioxide 20 L 22 Level Anion Gap 16 H 13 Blood Urea 18 22 H Nitrogen Creatinine 0.79 0.95 Est Glomerular Filtrat Rate mL/min Glucose Level 179 127 # Calcium Level 9.7 8.0 L Total Bilirubin 0.6 Direct Bilirubin 0.00 Indirect Bilirubin 0.6 Aspartate Amino 23 Transf (AST/SGOT) Alanine 13 Aminotransferase ( ALT/SGPT) Alkaline 69 Phosphatase Troponin I < 0.012 Total Protein 8.0 Albumin 4.6 Globulin 3.40 H Albumin/Globulin 1.35 Ratio Lipase 97 Urine Color JIMBO Urine Clarity SLIGHTLY CLOUDY A Urine pH 7.0 Urine Specific 1.008 [place] Urine Ketones TRACE A Urine Nitrite POSITIVE A Urine Bilirubin NEGATIVE Urine Urobilinogen 2+ H Urine Leukocyte 3+ H Esterase Urine Microscopic 1 RBC Urine Microscopic > 182 H WBC Urine Bacteria FEW A Urine Hemoglobin 1+ H Urine Glucose NEGATIVE Urine Total 1+ H Protein Bedside Urine pH 7.0 (LAB) Bedside Urine 1+ H Protein (LAB) Bedside Urine Negative Glucose (UA) Bedside Urine Trace H Ketones (LAB) Bedside Urine 1+ H Blood Bedside Urine Positive H Nitrite (LAB) Bedside Urine 3+ H Leukocyte Esterase (L Magnesium Level 1.6 L Test 09/04/18 05:05 White Blood Count 20.2 H Red Blood Count 4.44 Hemoglobin 11.7 L Hematocrit 37.5 Mean Corpuscular 84.5 Volume Mean Corpuscular 26.4 L Hemoglobin Mean Corpuscular 31.2 L Hemoglobin Concent Red Cell 13.9 Distribution Width Platelet Count 225 # Mean Platelet 10.1 Volume Immature 1.400 H Granulocytes % Neutrophils % 89.1 H Lymphocytes % 5.8 L Monocytes % 3.4 Eosinophils % 0.0 Basophils % 0.3 Nucleated Red 0.0 Blood Cells % Immature 0.280 H Granulocytes # Neutrophils # 18.0 H Lymphocytes # 1.2 Monocytes # 0.7 Eosinophils # 0.0 Basophils # 0.1 Nucleated Red 0.0 Blood Cells # Subjective 24 Hr Interval Summary Free Text/Dictation Patient states shes still with suprapubic discomfort with dysuria. Has been having soft BMs. Decrease in appetite as well which patient attributes to the antibiotics. Exam/Review of Systems Exam Vitals Vital Signs Date Temp Pulse Resp B/P (MAP) Pulse Ox O2 O2 Flow FiO2 Time Delivery Rate 09/04/18 98.6 100 18 149/70 96 08:22 (96) 4/1/19 Room Air 15:14 Intake and Output 09/03/18 09/03/18 09/04/18 1515:00 23:00 07:00 IntakeIntake Total 500 ml 300 ml BalanceBalance 500 ml 300 ml Exam General: Patient is laying in bed and answers questions appropriately. no acute distress Neck: Supple, nontender, midline Respiratory: Clear to auscultation bilaterally. no wheezing or rhonchi Cardiovascular: regular rate and rhythm, no obvious murmurs Gastrointestinal: soft, tender to palpation suprapubic area, bowel sounds heard. no rebound or guarding Neurological: Moves all extremities spontaneously Skin: No new skin lesions Results Results 24hrs Laboratory Tests Test 09/03/18 11:04 09/03/18 12:37 09/03/18 12:42 09/04/18 05:04 White Blood Count 18.1 #H Red Blood Count 4.82 # Hemoglobin 12.7 Hematocrit 39.4 Mean Corpuscular 81.7 L Volume Mean Corpuscular 26.3 L Hemoglobin Mean Corpuscular 32.2 Hemoglobin Concent Red Cell 13.6 Distribution Width Platelet Count 291 # Mean Platelet 9.7 Volume Immature 0.800 H Granulocytes % Neutrophils % 82.1 H Lymphocytes % 11.6 L Monocytes % 4.7 Eosinophils % 0.4 Basophils % 0.4 Nucleated Red 0.0 Blood Cells % Immature 0.140 H Granulocytes # Neutrophils # 14.8 H Lymphocytes # 2.1 Monocytes # 0.8 Eosinophils # 0.1 Basophils # 0.1 Nucleated Red 0.0 Blood Cells # Sodium Level 139 137 Potassium Level 3.8 3.1 L Chloride Level 103 102 Carbon Dioxide 20 L 22 Level Anion Gap 16 H 13 Blood Urea 18 22 H Nitrogen Creatinine 0.79 0.95 Est Glomerular Filtrat Rate mL/min Glucose Level 179 127 # Calcium Level 9.7 8.0 L Total Bilirubin 0.6 Direct Bilirubin 0.00 Indirect Bilirubin 0.6 Aspartate Amino 23 Transf (AST/SGOT) Alanine 13 Aminotransferase ( ALT/SGPT) Alkaline 69 Phosphatase Troponin I < 0.012 Total Protein 8.0 Albumin 4.6 Globulin 3.40 H Albumin/Globulin 1.35 Ratio Lipase 97 Urine Color JIMBO Urine Clarity SLIGHTLY CLOUDY A Urine pH 7.0 Urine Specific 1.008 [place] Urine Ketones TRACE A Urine Nitrite POSITIVE A Urine Bilirubin NEGATIVE Urine Urobilinogen 2+ H Urine Leukocyte 3+ H Esterase Urine Microscopic 1 RBC Urine Microscopic > 182 H WBC Urine Bacteria FEW A Urine Hemoglobin 1+ H Urine Glucose NEGATIVE Urine Total 1+ H Protein Bedside Urine pH 7.0 (LAB) Bedside Urine 1+ H Protein (LAB) Bedside Urine Negative Glucose (UA) Bedside Urine Trace H Ketones (LAB) Bedside Urine 1+ H Blood Bedside Urine Positive H Nitrite (LAB) Bedside Urine 3+ H Leukocyte Esterase (L Magnesium Level 1.6 L Test 09/04/18 05:05 White Blood Count 20.2 H Red Blood Count 4.44 Hemoglobin 11.7 L Hematocrit 37.5 Mean Corpuscular 84.5 Volume Mean Corpuscular 26.4 L Hemoglobin Mean Corpuscular 31.2 L Hemoglobin Concent Red Cell 13.9 Distribution Width Platelet Count 225 # Mean Platelet 10.1 Volume Immature 1.400 H Granulocytes % Neutrophils % 89.1 H Lymphocytes % 5.8 L Monocytes % 3.4 Eosinophils % 0.0 Basophils % 0.3 Nucleated Red 0.0 Blood Cells % Immature 0.280 H Granulocytes # Neutrophils # 18.0 H Lymphocytes # 1.2 Monocytes # 0.7 Eosinophils # 0.0 Basophils # 0.1 Nucleated Red 0.0 Blood Cells # Medications Medication Current Medications Benazepril HCl (Lotensin) 10 mg DAILY PO ; Start 09/04/18 at 09:00 Carvedilol (Coreg Cr) 10 mg DAILY PO ; Start 09/04/18 at 09:00 Duloxetine HCl (Cymbalta) 30 mg DAILY PO ; Start 09/04/18 at 09:00 Folic Acid (Folic Acid) 1 mg DAILY PO ; Start 09/04/18 at 09:00 Nifedipine (Procardia Xl) 60 mg DAILY PO ; Start 09/04/18 at 09:00 Oxybutynin Chloride (Ditropan Xl) 5 mg DAILY PO ; Start 09/04/18 at 09:00 Tramadol HCl (Ultram) 50 mg Q6H PRN PO PAIN Last administered on 09/03/18at 20:37; Admin Dose 50 MG; Start 09/03/18 at 14:00 Linezolid 300 ml @ 300 mls/hr Q12 IVPB Last administered on 09/03/18at 23:00; Admin Dose 300 MLS/HR; Start 09/03/18 at 14:30 IV Flush (NS 3 ml) 3 ml PER PROTOCOL IV ; Start 09/03/18 at 14:30 Ondansetron HCl (Zofran Inj) 4 mg Q6H PRN IV NAUSEA/VOMITING; Start 09/03/18 at 14:30 Acetaminophen (Tylenol Tab) 650 mg Q6H PRN PO .PAIN 1-3 OR TEMP; Start 09/03/18 at 14:30 Magnesium Hydroxide (Milk Of Mag) 30 ml DAILY PRN PO .CONSTIPATION; Start 09/03/18 at 14:30 Bisacodyl (Dulcolax Supp) 10 mg DAILY PRN [place] .CONSTIPATION; Start 09/03/18 at 14:30 Sodium Biphosphate/ Sodium Phosphate (Fleet Enema) 133 ml DAILY PRN [place] .CONSTIPATION; Start 09/03/18 at 14:30 Pantoprazole (Protonix Tab) 40 mg DAILY@06 PO Last administered on 09/04/18at 06:29; Admin Dose 40 MG; Start 09/04/18 at 06:00 Enoxaparin Sodium (Lovenox) 40 mg DAILY SC ; Start 09/04/18 at 09:00 Senna/Docusate Sodium (Senokot-S) 1 tab BID PO Last administered on 09/03/18at 20:33; Admin Dose 1 TAB; Start 09/03/18 at 14:30 PAMELA SINGH MD Sep 04, 2018 08:56
[2018-09-04] MEDS ORDERED: CARvedilol (CR) 10 MG CAP PO SCH (09:00)
[2018-09-04] MEDS: SENNA/DOCUSATE NA (8.6MG/50MG) TAB PO SCH ×2 (09:00→20:22)
[2018-09-04] MEDS: OXYBUTYNIN (XL) 5 MG TAB PO SCH (09:18)
[2018-09-04] MEDS: DULOXETINE 30 MG CAP DR PO SCH (09:18)
[2018-09-04] MEDS: BENAZEPRIL 10 MG TAB PO SCH (09:19)
[2018-09-04] MEDS: FOLIC ACID 1 MG TAB PO SCH (09:19)
[2018-09-04] MEDS: NIFEdipine (XL) 60 MG TAB PO SCH (09:20)
[2018-09-04] MEDS: LINEZOLID 600 MG/D5W (PMX) 300 ML IVPB SCH (09:20)
[2018-09-04] MEDS: ENOXAPARIN 40 MG/0.4 ML SYG SC SCH (09:21)
[2018-09-04] MEDS: POTASSIUM CHLORIDE (SR) 20 MEQ TAB PO STA ×2 (10:19→10:25)
[2018-09-04] MEDS ORDERED: POTASSIUM CHLORIDE 20 MEQ POWDER FOR ORAL SOLN PO ONE ×2 (10:30→14:30)
[2018-09-04] MEDS ORDERED: MAGNESIUM SULFATE 2 GM/50 ML 50 ML IVPB ONE (11:00)
[2018-09-04] MEDS ORDERED: SOD CHLORIDE 0.9% 1,000 ML IV SCH (13:00)
[2018-09-04 14:00] VITALS: BP 120/64; PULSE 86; RESP 18
[2018-09-04] MEDS ORDERED: POTASSIUM CHLORIDE (SR) 20 MEQ TAB PO ONE (14:00)
--- NOTE | 2018-09-04 15:08 | CONS ---
Assessment/Plan Assessment/Plan Hospital Course (Demo Recall) No acute changes patient is alert complaining of lower abdominal pain no fevers overnight. WBC 20.2 platelets 225 neutrophils 89.1 BUN 22 creatinine 0.95 Microbiology: Urine culture growing strep agalactiae CT abdomen and pelvis revealed distended rectum with a moderate to large amount of stool. Mild bilateral hydroureteronephrosis. Mild distention of the bladder. No obstructing ureteral stones Antimicrobials: Zyvox Physical examination: Fragile well-developed elderly woman who is alert in no distress. Head atraumatic normocephalic. Neck is supple. Chest rise symmetrical breath sounds clear. Heart: S1-S2. Abdomen soft bowel sounds present extremities without cyanosis. Assessment: 1. Systemic inflammatory response syndrome 2. Recurrent UTI 3. Urinary retention 4. Fecal impaction Plan: We are going to insert Zapata, consider enema was disimpaction, change antibiotics to Rocephin, continue stool softeners and laxatives as needed Consultation Date/Type/Reason Admit Date/Time Sep 03, 2018 at 12:56 Initial Consult Date Type of Consult id Date/Time of Note DATE: 09/04/18 TIME: 15:07 Exam/Review of Systems Exam Vitals Vital Signs Date Temp Pulse Resp B/P (MAP) Pulse Ox O2 O2 Flow FiO2 Time Delivery Rate 09/04/18 98.6 100 18 149/70 96 08:22 (96) 09/03/18 Room Air 15:14 Intake and Output 09/03/18 09/03/18 09/04/18 1515:00 23:00 07:00 IntakeIntake Total 500 ml 300 ml BalanceBalance 500 ml 300 ml Results Result Diagram: 09/04/18 0505 09/04/18 0504 Results 24hrs Laboratory Tests Test 09/04/18 05:04 09/04/18 05:05 Sodium Level 137 Potassium Level 3.1 L Chloride Level 102 Carbon Dioxide Level 22 Anion Gap 13 Blood Urea Nitrogen 22 H Creatinine 0.95 Est Glomerular Filtrat Rate mL/min Glucose Level 127 # Calcium Level 8.0 L Magnesium Level 1.6 L White Blood Count 20.2 H Red Blood Count 4.44 Hemoglobin 11.7 L Hematocrit 37.5 Mean Corpuscular Volume 84.5 Mean Corpuscular Hemoglobin 26.4 L Mean Corpuscular Hemoglobin Concent 31.2 L Red Cell Distribution Width 13.9 Platelet Count 225 # Mean Platelet Volume 10.1 Immature Granulocytes % 1.400 H Neutrophils % 89.1 H Lymphocytes % 5.8 L Monocytes % 3.4 Eosinophils % 0.0 Basophils % 0.3 Nucleated Red Blood Cells % 0.0 Immature Granulocytes # 0.280 H Neutrophils # 18.0 H Lymphocytes # 1.2 Monocytes # 0.7 Eosinophils # 0.0 Basophils # 0.1 Nucleated Red Blood Cells # 0.0 Medications Medication Current Medications Benazepril HCl (Lotensin) 10 mg DAILY PO Last administered on 09/04/18 09:19; Admin Dose 10 MG; Start 09/04/18 at 09:00 Carvedilol (Coreg Cr) 10 mg DAILY PO Last administered on 09/04/18 09:19; Admin Dose 10 MG; Start 09/04/18 at 09:00 Duloxetine HCl (Cymbalta) 30 mg DAILY PO Last administered on 09/04/18 09:18; A dmin Dose 30 MG; Start 09/04/18 at 09:00 Folic Acid (Folic Acid) 1 mg DAILY PO Last administered on 09/04/18 09:19; Admin Dose 1 MG; Start 09/04/18 at 09:00 Nifedipine (Procardia Xl) 60 mg DAILY PO Last administered on 09/04/18 09:20; Admin Dose 60 MG; Start 09/04/18 at 09:00 Oxybutynin Chloride (Ditropan Xl) 5 mg DAILY PO Last administered on 09/04/18 09:18; Admin Dose 5 MG; Start 09/04/18 at 09:00 Tramadol HCl (Ultram) 50 mg Q6H PRN PO PAIN Last administered on 09/03/18at 20:37; Admin Dose 50 MG; Start 09/03/18 at 14:00 Linezolid 300 ml @ 300 mls/hr Q12 IVPB Last administered on 09/04/18 09:20; Admin Dose 300 MLS/HR; Start 09/03/18 at 14:30 IV Flush (NS 3 ml) 3 ml PER PROTOCOL IV ; Start 09/03/18 at 14:30 Ondansetron HCl (Zofran Inj) 4 mg Q6H PRN IV NAUSEA/VOMITING; Start 09/03/18 at 14:30 Acetaminophen (Tylenol Tab) 650 mg Q6H PRN PO .PAIN 1-3 OR TEMP; Start 09/03/18 at 14:30 Magnesium Hydroxide (Milk Of Mag) 30 ml DAILY PRN PO .CONSTIPATION; Start 09/03/18 at 14:30 Bisacodyl (Dulcolax Supp) 10 mg DAILY PRN [place] .CONSTIPATION; Start 09/03/18 at 14:30 Sodium Biphosphate/ Sodium Phosphate (Fleet Enema) 133 ml DAILY PRN [place] .CONSTIPATION; Start 09/03/18 at 14:30 Pantoprazole (Protonix Tab) 40 mg DAILY@06 PO Last administered on 09/04/18at 06:29; Admin Dose 40 MG; Start 09/04/18 at 06:00 Enoxaparin Sodium (Lovenox) 40 mg DAILY SC Last administered on 09/04/18at 09:21; Admin Dose 40 MG; Start 09/04/18 at 09:00 Senna/Docusate Sodium (Senokot-S) 1 tab BID PO Last administered on 09/03/18at 20:33; Admin Dose 1 TAB; Start 09/03/18 at 14:30 Phenazopyridine HCl (Pyridium) 100 mg TID PO ; Start 09/04/18 at 13:00 Sodium Chloride 1,000 ml @ 75 mls/hr [id number] IV Last administered on 09/04/18at 13:39; Admin Dose 75 MLS/HR; Start 09/04/18 at 13:00; Stop 09/05/18 at 02:19 ANDREW BATISTA NP Sep 04, 2018 15:08
[2018-09-04] MEDS: PHENAZOPYRIDINE 100 MG TAB PO SCH ×2 (15:14→20:22)
[2018-09-04] MEDS: CEFTRIAXONE 1 GM/50 ML (PMX) 50 ML IVPB SCH (15:25)
[2018-09-04] MEDS: traMADol 50 MG TAB PO PRN (20:23)
[2018-09-04 21:00] VITALS: BP 96/44; PULSE 77; RESP 18
[2018-09-05] MEDS: traMADol 50 MG TAB PO PRN (02:12)
[2018-09-05 02:15] VITALS: BP 113/56; PULSE 80; RESP 18
[2018-09-05] MEDS: PANTOPRAZOLE (EC) 40 MG TAB PO SCH (06:15)
[2018-09-05 07:54] VITALS: BP 106/51; PULSE 85; RESP 18
[2018-09-05] MEDS: BENAZEPRIL 10 MG TAB PO SCH (08:47)
[2018-09-05] MEDS: NIFEdipine (XL) 60 MG TAB PO SCH (08:47)
[2018-09-05] MEDS: CARvedilol (CR) 10 MG CAP PO SCH (08:47)
[2018-09-05] MEDS ORDERED: CARvedilol (CR) 10 MG CAP PO SCH (09:00)
[2018-09-05] MEDS: OXYBUTYNIN (XL) 5 MG TAB PO SCH (09:21)
[2018-09-05] MEDS: FOLIC ACID 1 MG TAB PO SCH (09:21)
[2018-09-05] MEDS: DULOXETINE 30 MG CAP DR PO SCH (09:21)
[2018-09-05] MEDS: MULTIVITAMINS THERAPEUTIC TAB PO SCH (09:21)
[2018-09-05] MEDS: PHENAZOPYRIDINE 100 MG TAB PO SCH ×3 (09:21→21:33)
[2018-09-05] MEDS: SENNA/DOCUSATE NA (8.6MG/50MG) TAB PO SCH ×2 (09:21→21:33)
[2018-09-05] MEDS: ENOXAPARIN 40 MG/0.4 ML SYG SC SCH (09:22)
--- NOTE | 2018-09-05 14:07 | CONS ---
Assessment/Plan Assessment/Plan Hospital Course (Demo Recall) Alert feels good still with tenderness over the suprapubic area with palpation. Patient refused Zapata. WBC today went down to 13.8 Antimicrobials Rocephin Urine culture grew strep agalactiae CT abdomen and pelvis revealed distended rectum with a moderate to large amount of stool. Mild bilateral hydroureteronephrosis. Mild distention of the bladder. No obstructing ureteral stones Physical examination: Fragile well-developed elderly woman who is alert in no distress. Head atraumatic normocephalic. Neck is supple. Chest rise symmetrical breath sounds clear. Heart: S1-S2. Abdomen soft bowel sounds present extremities without cyanosis. Assessment: 1. Systemic inflammatory response syndrome 2. Recurrent UTI 3. Urinary retention 4. Fecal impaction, s/p Plan: Doing better, WBC trending down, continue antibiotics, add Flomax, continue laxatives and stool softeners Consultation Date/Type/Reason Admit Date/Time Sep 03, 2018 at 12:56 Initial Consult Date Type of Consult id Date/Time of Note DATE: 09/05/18 TIME: 14:06 Exam/Review of Systems Exam Vitals Vital Signs Date Temp Pulse Resp B/P (MAP) Pulse Ox O2 O2 Flow FiO2 Time Delivery Rate 09/05/18 98.0 85 18 106/51 97 07:54 (69) 09/03/18 Room Air 15:14 Intake and Output 09/04/18 09/04/18 09/05/18 1515:00 23:00 07:00 IntakeIntake Total 3600 ml 550 ml 600 ml OutputOutput Total 2 ml BalanceBalance 3598 ml 550 ml 600 ml Results Result Diagram: 09/05/18 1035 09/05/18 1035 Results 24hrs Laboratory Tests Test 09/05/18 10:35 White Blood Count 13.8 #H Red Blood Count 3.56 L Hemoglobin 9.4 L Hematocrit 30.5 L Mean Corpuscular Volume 85.7 Mean Corpuscular Hemoglobin 26.4 L Mean Corpuscular Hemoglobin Concent 30.8 L Red Cell Distribution Width 14.4 Platelet Count 194 Mean Platelet Volume 10.5 H Immature Granulocytes % 1.000 H Neutrophils % 87.7 H Lymphocytes % 8.0 L Monocytes % 2.1 Eosinophils % 0.8 Basophils % 0.4 Nucleated Red Blood Cells % 0.0 Immature Granulocytes # 0.140 H Neutrophils # 12.1 H Lymphocytes # 1.1 Monocytes # 0.3 Eosinophils # 0.1 Basophils # 0.1 Nucleated Red Blood Cells # 0.0 Sodium Level 135 Potassium Level 3.7 Chloride Level 108 Carbon Dioxide Level 18 L Anion Gap 9 Blood Urea Nitrogen 24 H Creatinine 0.97 Glucose Level 113 Calcium Level 7.2 L Phosphorus Level 1.2 L Magnesium Level 2.8 #H Albumin 2.8 #L Medications Medication Current Medications Benazepril HCl (Lotensin) 10 mg DAILY PO Last administered on 09/04/18 09:19; Admin Dose 10 MG; Start 09/04/18 at 09:00 Duloxetine HCl (Cymbalta) 30 mg DAILY PO Last administered on 09/05/18 09:21; Admin Dose 30 MG; Start 09/04/18 at 09:00 Folic Acid (Folic Acid) 1 mg DAILY PO Last administered on 09/05/18 09:21; Admin Dose 1 MG; Start 09/04/18 at 09:00 Nifedipine (Procardia Xl) 60 mg DAILY PO Last administered on 09/04/18at 09:20; Admin Dose 60 MG; Start 09/04/18 at 09:00 Oxybutynin Chloride (Ditropan Xl) 5 mg DAILY PO Last administered on 09/05/18 09:21; Admin Dose 5 MG; Start 09/04/18 at 09:00 Tramadol HCl (Ultram) 50 mg Q6H PRN PO PAIN Last administered on 09/05/18at 02:12; Admin Dose 50 MG; Start 09/03/18 at 14:00 IV Flush (NS 3 ml) 3 ml PER PROTOCOL IV ; Start 09/03/18 at 14:30 Ondansetron HCl (Zofran Inj) 4 mg Q6H PRN IV NAUSEA/VOMITING; Start 09/03/18 at 14:30 Acetaminophen (Tylenol Tab) 650 mg Q6H PRN PO .PAIN 1-3 OR TEMP; Start 09/03/18 at 14:30 Magnesium Hydroxide (Milk Of Mag) 30 ml DAILY PRN PO .CONSTIPATION; Start 09/03/18 at 14:30 Bisacodyl (Dulcolax Supp) 10 mg DAILY PRN [place] .CONSTIPATION; Start 09/03/18 at 14:30 Sodium Biphosphate/ Sodium Phosphate (Fleet Enema) 133 ml DAILY PRN [place] .CONSTIPATION; Start 09/03/18 at 14:30 Pantoprazole (Protonix Tab) 40 mg DAILY@06 PO Last administered on 09/05/18at 06:15; Admin Dose 40 MG; Start 09/04/18 at 06:00 Enoxaparin Sodium (Lovenox) 40 mg DAILY SC Last administered on 09/05/18at 09:22; Admin Dose 40 MG; Start 09/04/18 at 09:00 Senna/Docusate Sodium (Senokot-S) 1 tab BID PO Last administered on 09/05/18 09:21; Admin Dose 1 TAB; Start 09/03/18 at 14:30 Phenazopyridine HCl (Pyridium) 100 mg TID PO Last administered on 09/05/18at 13:36; Admin Dose 100 MG; Start 09/04/18 at 13:00 Ceftriaxone Sodium 50 ml @ 100 mls/hr Q24H IVPB Last administered on 09/04/18at 15:25; Admin Dose 100 MLS/HR; Start 09/04/18 at 16:00 Carvedilol (Coreg Cr) 20 mg DAILY PO ; Start 09/05/18 at 09:00 Multivitamins Therapeutic (Theragran) 1 tab DAILY PO Last administered on 09/05/18 09:21; Admin Dose 1 TAB; Start 09/05/18 at 09:00 ANDREW BATISTA NP Sep 05, 2018 14:07
[2018-09-05 14:43] VITALS: BP 101/51; PULSE 87; RESP 18
--- NOTE | 2018-09-05 14:58 | PN ---
Date/Time of Note Date/Time of Note DATE: 09/05/18 TIME: 14:53 Assessment/Plan VTE Prophylaxis Risk score (from Ns)>0 risk: 5 SCD applied (from Ns): Yes Pharmacological prophylaxis: LMWH Lines/Catheters IV Catheter Type (from Nrsg): Peripheral IV Urinary Cath still in place: No Assessment/Plan Assessment/Plan 1. Acute abdominal pain - improving but still with discomfort in suprapubic area. No longer with nausea and vomiting - KUB shows resolution of constipation/fecal impaction 2. UTI - ID on board and appreciate recommendations. Urine cx noted and antibiotics adjusted 3. Leukocytosis- improving - most likely secondary to #2 - monitor 4. HTN - BP was low this am which is most likely secondary to poor PO intake. Will hold medications for now 5. Chronic constipation- improving - bowel regime on board 6. Arthritis - on tramadol as outpatient. Will continue 7. Anemia - monitor H/H - continue folic acid 8. Disposition - Will continue monitoring for improvement in suprapubic discomfort. Once tolerating PO diet without any urinary complaints, will d/c home with HHPT Result Diagram: 09/05/18 1035 09/05/18 1035 Results 24hrs Laboratory Tests Test 09/05/18 10:35 White Blood Count 13.8 #H Red Blood Count 3.56 L Hemoglobin 9.4 L Hematocrit 30.5 L Mean Corpuscular Volume 85.7 Mean Corpuscular Hemoglobin 26.4 L Mean Corpuscular Hemoglobin Concent 30.8 L Red Cell Distribution Width 14.4 Platelet Count 194 Mean Platelet Volume 10.5 H Immature Granulocytes % 1.000 H Neutrophils % 87.7 H Lymphocytes % 8.0 L Monocytes % 2.1 Eosinophils % 0.8 Basophils % 0.4 Nucleated Red Blood Cells % 0.0 Immature Granulocytes # 0.140 H Neutrophils # 12.1 H Lymphocytes # 1.1 Monocytes # 0.3 Eosinophils # 0.1 Basophils # 0.1 Nucleated Red Blood Cells # 0.0 Sodium Level 135 Potassium Level 3.7 Chloride Level 108 Carbon Dioxide Level 18 L Anion Gap 9 Blood Urea Nitrogen 24 H Creatinine 0.97 Glucose Level 113 Calcium Level 7.2 L Phosphorus Level 1.2 L Magnesium Level 2.8 #H Albumin 2.8 #L Subjective 24 Hr Interval Summary Free Text/Dictation Patient states shes feeling slightly better but still with bladder discomfort and minimal appetite. Refusing ramirez placement at this time. Exam/Review of Systems Exam Vitals Vital Signs Date Temp Pulse Resp B/P (MAP) Pulse Ox O2 O2 Flow FiO2 Time Delivery Rate 09/05/18 98.1 87 18 101/51 98 14:43 (68) 09/03/18 Room Air 15:14 Intake and Output 09/04/18 09/04/18 09/05/18 1515:00 23:00 07:00 IntakeIntake Total 3600 ml 550 ml 600 ml OutputOutput Total 2 ml BalanceBalance 3598 ml 550 ml 600 ml Exam General: Patient is laying in bed and answers questions appropriately. no acute distress Neck: Supple, nontender, midline Respiratory: Clear to auscultation bilaterally. no wheezing or rhonchi Cardiovascular: regular rate and rhythm, no obvious murmurs Gastrointestinal: soft, mildly tender to palpation suprapubic area, bowel sounds heard. no rebound or guarding Neurological: Moves all extremities spontaneously Skin: No new skin lesions Results Results 24hrs Laboratory Tests Test 09/05/18 10:35 White Blood Count 13.8 #H Red Blood Count 3.56 L Hemoglobin 9.4 L Hematocrit 30.5 L Mean Corpuscular Volume 85.7 Mean Corpuscular Hemoglobin 26.4 L Mean Corpuscular Hemoglobin Concent 30.8 L Red Cell Distribution Width 14.4 Platelet Count 194 Mean Platelet Volume 10.5 H Immature Granulocytes % 1.000 H Neutrophils % 87.7 H Lymphocytes % 8.0 L Monocytes % 2.1 Eosinophils % 0.8 Basophils % 0.4 Nucleated Red Blood Cells % 0.0 Immature Granulocytes # 0.140 H Neutrophils # 12.1 H Lymphocytes # 1.1 Monocytes # 0.3 Eosinophils # 0.1 Basophils # 0.1 Nucleated Red Blood Cells # 0.0 Sodium Level 135 Potassium Level 3.7 Chloride Level 108 Carbon Dioxide Level 18 L Anion Gap 9 Blood Urea Nitrogen 24 H Creatinine 0.97 Glucose Level 113 Calcium Level 7.2 L Phosphorus Level 1.2 L Magnesium Level 2.8 #H Albumin 2.8 #L Medications Medication Current Medications Benazepril HCl (Lotensin) 10 mg DAILY PO Last administered on 09/04/18at 09:19; Admin Dose 10 MG; Start 09/04/18 at 09:00 Duloxetine HCl (Cymbalta) 30 mg DAILY PO Last administered on 09/05/18 09:21; Admin Dose 30 MG; Start 09/04/18 at 09:00 Folic Acid (Folic Acid) 1 mg DAILY PO Last administered on 09/05/18 09:21; Admin Dose 1 MG; Start 09/04/18 at 09:00 Nifedipine (Procardia Xl) 60 mg DAILY PO Last administered on 09/04/18 09:20; Admin Dose 60 MG; Start 09/04/18 at 09:00 Oxybutynin Chloride (Ditropan Xl) 5 mg DAILY PO Last administered on 09/05/18 09:21; Admin Dose 5 MG; Start 09/04/18 at 09:00 Tramadol HCl (Ultram) 50 mg Q6H PRN PO PAIN Last administered on 09/05/18 02:12; Admin Dose 50 MG; Start 09/03/18 at 14:00 IV Flush (NS 3 ml) 3 ml PER PROTOCOL IV ; Start 09/03/18 at 14:30 Ondansetron HCl (Zofran Inj) 4 mg Q6H PRN IV NAUSEA/VOMITING; Start 09/03/18 at 14:30 Acetaminophen (Tylenol Tab) 650 mg Q6H PRN PO .PAIN 1-3 OR TEMP; Start 09/03/18 at 14:30 Magnesium Hydroxide (Milk Of Mag) 30 ml DAILY PRN PO .CONSTIPATION; Start at 14:30 Bisacodyl (Dulcolax Supp) 10 mg DAILY PRN OR .CONSTIPATION; Start 09/03/18 at 14:30 Sodium Biphosphate/ Sodium Phosphate (Fleet Enema) 133 ml DAILY PRN OR .CONSTIPATION; Start 09/03/18 at 14:30 Pantoprazole (Protonix Tab) 40 mg DAILY@06 PO Last administered on 09/05/18 06:15; Admin Dose 40 MG; Start 09/04/18 at 06:00 Enoxaparin Sodium (Lovenox) 40 mg DAILY SC Last administered on 09/05/18 09:22; Admin Dose 40 MG; Start 09/04/18 at 09:00 Senna/Docusate Sodium (Senokot-S) 1 tab BID PO Last administered on 09/05/18 09:21; Admin Dose 1 TAB; Start 09/03/18 at 14:30 Phenazopyridine HCl (Pyridium) 100 mg TID PO Last administered on 09/05/18at 13:36; Admin Dose 100 MG; Start 09/04/18 at 13:00 Ceftriaxone Sodium 50 ml @ 100 mls/hr Q24H IVPB Last administered on 09/04/18at 15:25; Admin Dose 100 MLS/HR; Start 09/04/18 at 16:00 Carvedilol (Coreg Cr) 20 mg DAILY PO ; Start 09/05/18 at 09:00 Multivitamins Therapeutic (Theragran) 1 tab DAILY PO Last administered on 09/05/18at 09:21; Admin Dose 1 TAB; Start 09/05/18 at 09:00 Tamsulosin HCl (Flomax) 0.4 mg BID PO ; Start 09/05/18 at 21:00 PAMELA SINGH MD Sep 05, 2018 14:57
[2018-09-05] MEDS: CEFTRIAXONE 1 GM/50 ML (PMX) 50 ML IVPB SCH (15:23)
[2018-09-05] MEDS ORDERED: POTASSIUM PHOSPHATE 20 MEQ in SOD CHLORIDE 0.9% 250 ML IVPB ONE (16:00)
[2018-09-05 20:01] VITALS: BP 111/52; PULSE 85; RESP 18
[2018-09-05] MEDS: TAMSULOSIN (SR) 0.4 MG CAP PO SCH (21:33)
[2018-09-06 02:05] VITALS: BP 125/58; PULSE 94; RESP 18
[2018-09-06] MEDS: PANTOPRAZOLE (EC) 40 MG TAB PO SCH (06:00)
[2018-09-06 08:00] VITALS: BP 124/59; PULSE 87; RESP 18
[2018-09-06] MEDS: DULOXETINE 30 MG CAP DR PO SCH (09:13)
[2018-09-06] MEDS: TAMSULOSIN (SR) 0.4 MG CAP PO SCH ×2 (09:14→21:05)
[2018-09-06] MEDS: NIFEdipine (XL) 60 MG TAB PO SCH (09:15)
[2018-09-06] MEDS: OXYBUTYNIN (XL) 5 MG TAB PO SCH (09:15)
[2018-09-06] MEDS: CARvedilol (CR) 10 MG CAP PO SCH (09:15)
[2018-09-06] MEDS: SENNA/DOCUSATE NA (8.6MG/50MG) TAB PO SCH ×2 (09:15→21:05)
[2018-09-06] MEDS: MULTIVITAMINS THERAPEUTIC TAB PO SCH (09:15)
[2018-09-06] MEDS: FOLIC ACID 1 MG TAB PO SCH (09:15)
[2018-09-06] MEDS: PHENAZOPYRIDINE 100 MG TAB PO SCH ×3 (09:15→21:05)
[2018-09-06] MEDS: ENOXAPARIN 40 MG/0.4 ML SYG SC SCH (09:17)
--- NOTE | 2018-09-06 12:47 | CONS ---
Assessment/Plan Assessment/Plan Hospital Course (Demo Recall) No events, all noted, no fevers Antimicrobials: Rocephin Urine culture grew strep agalactiae CT abdomen and pelvis revealed distended rectum with a moderate to large amount of stool. Mild bilateral hydroureteronephrosis. Mild distention of the bladder. No obstructing ureteral stones Physical examination: Fragile well-developed elderly woman who is alert in no distress. Head atraumatic normocephalic. Neck is supple. Chest rise symmetrical breath sounds clear. Heart: S1-S2. Abdomen soft bowel sounds present extremities without cyanosis. Assessment: 1. Systemic inflammatory response syndrome 2. Recurrent UTI 3. Urinary retention==> on Flomax 4. Fecal impaction, s/p BM's Plan: Stable, continue antibiotics, Flomax, laxatives prn and stool softeners. Anticipate dc on oral Amoxil for 7 days Consultation Date/Type/Reason Admit Date/Time Sep 03, 2018 at 12:56 Initial Consult Date Type of Consult id Date/Time of Note DATE: 09/06/18 TIME: 12:45 Exam/Review of Systems Exam Vitals Vital Signs Date Temp Pulse Resp B/P (MAP) Pulse Ox O2 O2 Flow FiO2 Time Delivery Rate 09/06/18 98.1 87 18 124/59 97 Room Air 08:00 (80) Intake and Output 09/05/18 09/05/18 09/06/18 1414:59 22:59 06:59 IntakeIntake Total 1104.5455 ml 1100 ml BalanceBalance 1104.5455 ml 1100 ml Results Result Diagram: 09/06/18 1116 09/06/18 1116 Results 24hrs Laboratory Tests Test 09/06/18 11:16 White Blood Count 7.5 # Red Blood Count 3.80 L Hemoglobin 10.0 L Hematocrit 31.9 L Mean Corpuscular Volume 83.9 Mean Corpuscular Hemoglobin 26.3 L Mean Corpuscular Hemoglobin Concent 31.3 L Red Cell Distribution Width 14.3 Platelet Count 196 Mean Platelet Volume 9.7 Immature Granulocytes % 0.700 H Neutrophils % 82.0 H Lymphocytes % 12.0 L Monocytes % 3.7 Eosinophils % 1.2 Basophils % 0.4 Nucleated Red Blood Cells % 0.0 Immature Granulocytes # 0.050 H Neutrophils # 6.1 Lymphocytes # 0.9 Monocytes # 0.3 Eosinophils # 0.1 Basophils # 0.0 Nucleated Red Blood Cells # 0.0 Sodium Level 136 Potassium Level 4.1 Chloride Level 110 Carbon Dioxide Level 21 Anion Gap 5 Blood Urea Nitrogen 12 # Creatinine 0.61 Glucose Level 145 Calcium Level 7.4 L Phosphorus Level 1.7 L Magnesium Level 2.5 Albumin 2.9 L Medications Medication Current Medications Duloxetine HCl (Cymbalta) 30 mg DAILY PO Last administered on 09/06/18 09:13; Admin Dose 30 MG; Start 09/04/18 at 09:00 Folic Acid (Folic Acid) 1 mg DAILY PO Last administered on 09/06/18 09:15; Admin Dose 1 MG; Start 09/04/18 at 09:00 Nifedipine (Procardia Xl) 60 mg DAILY PO Last administered on 09/06/18 09:15; Admin Dose 60 MG; Start 09/04/18 at 09:00 Oxybutynin Chloride (Ditropan Xl) 5 mg DAILY PO Last administered on 09/06/18 09:15; Admin Dose 5 MG; Start 09/04/18 at 09:00 Tramadol HCl (Ultram) 50 mg Q6H PRN PO PAIN Last administered on 09/05/18at 02:12; Admin Dose 50 MG; Start 09/03/18 at 14:00 IV Flush (NS 3 ml) 3 ml PER PROTOCOL IV ; Start 09/03/18 at 14:30 Ondansetron HCl (Zofran Inj) 4 mg Q6H PRN IV NAUSEA/VOMITING; Start 09/03/18 at 14:30 Acetaminophen (Tylenol Tab) 650 mg Q6H PRN PO .PAIN 1-3 OR TEMP; Start 09/03/18 at 14:30 Magnesium Hydroxide (Milk Of Mag) 30 ml DAILY PRN PO .CONSTIPATION; Start at 14:30 Bisacodyl (Dulcolax Supp) 10 mg DAILY PRN ID .CONSTIPATION; Start 09/03/18 at 14:30 Sodium Biphosphate/ Sodium Phosphate (Fleet Enema) 133 ml DAILY PRN ID .CONSTIPATION; Start 09/03/18 at 14:30 Pantoprazole (Protonix Tab) 40 mg DAILY@06 PO Last administered on 09/06/18at 06:00; Admin Dose 40 MG; Start 09/04/18 at 06:00 Enoxaparin Sodium (Lovenox) 40 mg DAILY SC Last administered on 09/06/18 09:17; Admin Dose 40 MG; Start 09/04/18 at 09:00 Senna/Docusate Sodium (Senokot-S) 1 tab BID PO Last administered on 09/06/18 09:15; Admin Dose 1 TAB; Start 09/03/18 at 14:30 Phenazopyridine HCl (Pyridium) 100 mg TID PO Last administered on 09/06/18 12:24; Admin Dose 100 MG; Start 09/04/18 at 13:00 Ceftriaxone Sodium 50 ml @ 100 mls/hr Q24H IVPB Last administered on 09/05/18 15:23; Admin Dose 100 MLS/HR; Start 09/04/18 at 16:00 Carvedilol (Coreg Cr) 20 mg DAILY PO Last administered on 09/06/18 09:15; Admin Dose 20 MG; Start 09/05/18 at 09:00 Multivitamins Therapeutic (Theragran) 1 tab DAILY PO Last administered on 09/06/18 09:15; Admin Dose 1 TAB; Start 09/05/18 at 09:00 Tamsulosin HCl (Flomax) 0.4 mg BID PO Last administered on 09/06/18 09:14; Admin Dose 0.4 MG; Start 09/05/18 at 21:00 ANDREW BATISTA NP Sep 06, 2018 12:47
[2018-09-06 13:44] VITALS: BP 110/55; PULSE 80; RESP 18
--- NOTE | 2018-09-06 15:26 | PN ---
Date/Time of Note Date/Time of Note DATE: 09/06/18 TIME: 15:22 Assessment/Plan VTE Prophylaxis Risk score (from Ns)>0 risk: 5 SCD applied (from Ns): Yes Pharmacological prophylaxis: LMWH Lines/Catheters IV Catheter Type (from Nrs): Saline Lock Urinary Cath still in place: No Assessment/Plan Assessment/Plan 1. Acute abdominal pain- improving - controlled with tramadol and pyridium - still with diminished appetite - No longer with nausea and vomiting - KUB shows resolution of constipation/fecal impaction 2. UTI - ID on board and appreciate recommendations. Urine cx noted and antibiotics adjusted. Can d/c on 7 days of Augmentin 3. Leukocytosis- resolved - most likely secondary to #2 - monitor 4. HTN - stable 5. Chronic constipation- improving - bowel regime on board 6. Arthritis - on tramadol as outpatient. Will continue 7. Anemia - monitor H/H - continue folic acid 8. Disposition - Showing some improvement but still with poor PO intake. Once tolerating diet, will d/c home. Anticipate discharge in 1-2 days Result Diagram: 09/06/18 1116 09/06/18 1116 Results 24hrs Laboratory Tests Test 09/06/18 11:16 White Blood Count 7.5 # Red Blood Count 3.80 L Hemoglobin 10.0 L Hematocrit 31.9 L Mean Corpuscular Volume 83.9 Mean Corpuscular Hemoglobin 26.3 L Mean Corpuscular Hemoglobin Concent 31.3 L Red Cell Distribution Width 14.3 Platelet Count 196 Mean Platelet Volume 9.7 Immature Granulocytes % 0.700 H Neutrophils % 82.0 H Lymphocytes % 12.0 L Monocytes % 3.7 Eosinophils % 1.2 Basophils % 0.4 Nucleated Red Blood Cells % 0.0 Immature Granulocytes # 0.050 H Neutrophils # 6.1 Lymphocytes # 0.9 Monocytes # 0.3 Eosinophils # 0.1 Basophils # 0.0 Nucleated Red Blood Cells # 0.0 Sodium Level 136 Potassium Level 4.1 Chloride Level 110 Carbon Dioxide Level 21 Anion Gap 5 Blood Urea Nitrogen 12 # Creatinine 0.61 Glucose Level 145 Calcium Level 7.4 L Phosphorus Level 1.7 L Magnesium Level 2.5 Albumin 2.9 L Subjective 24 Hr Interval Summary Free Text/Dictation Patient states shes feeling better but still with diminished appetite. No acute overnight events. Exam/Review of Systems Exam Vitals Vital Signs Date Temp Pulse Resp B/P (MAP) Pulse Ox O2 O2 Flow FiO2 Time Delivery Rate 09/06/18 98.0 80 18 110/55 97 Room Air 13:44 (73) Intake and Output 09/05/18 09/05/18 09/06/18 1515:00 23:00 07:00 IntakeIntake Total 1104.5455 ml 1100 ml BalanceBalance 1104.5455 ml 1100 ml Exam General: Patient is laying in bed and answers questions appropriately. no acute distress Neck: Supple, nontender, midline Respiratory: Clear to auscultation bilaterally. no wheezing or rhonchi Cardiovascular: regular rate and rhythm, no obvious murmurs Gastrointestinal: soft, mildly tender to palpation suprapubic area, bowel sounds heard. no rebound or guarding Neurological: Moves all extremities spontaneously Skin: No new skin lesions Results Results 24hrs Laboratory Tests Test 09/06/18 11:16 White Blood Count 7.5 # Red Blood Count 3.80 L Hemoglobin 10.0 L Hematocrit 31.9 L Mean Corpuscular Volume 83.9 Mean Corpuscular Hemoglobin 26.3 L Mean Corpuscular Hemoglobin Concent 31.3 L Red Cell Distribution Width 14.3 Platelet Count 196 Mean Platelet Volume 9.7 Immature Granulocytes % 0.700 H Neutrophils % 82.0 H Lymphocytes % 12.0 L Monocytes % 3.7 Eosinophils % 1.2 Basophils % 0.4 Nucleated Red Blood Cells % 0.0 Immature Granulocytes # 0.050 H Neutrophils # 6.1 Lymphocytes # 0.9 Monocytes # 0.3 Eosinophils # 0.1 Basophils # 0.0 Nucleated Red Blood Cells # 0.0 Sodium Level 136 Potassium Level 4.1 Chloride Level 110 Carbon Dioxide Level 21 Anion Gap 5 Blood Urea Nitrogen 12 # Creatinine 0.61 Glucose Level 145 Calcium Level 7.4 L Phosphorus Level 1.7 L Magnesium Level 2.5 Albumin 2.9 L Medications Medication Current Medications Duloxetine HCl (Cymbalta) 30 mg DAILY PO Last administered on 09/06/18at 09:13; Admin Dose 30 MG; Start 09/04/18 at 09:00 Folic Acid (Folic Acid) 1 mg DAILY PO Last administered on 09/06/18 09:15; Admin Dose 1 MG; Start 09/04/18 at 09:00 Nifedipine (Procardia Xl) 60 mg DAILY PO Last administered on 09/06/18 09:15; Admin Dose 60 MG; Start 09/04/18 at 09:00 Oxybutynin Chloride (Ditropan Xl) 5 mg DAILY PO Last administered on 09/06/18 09:15; Admin Dose 5 MG; Start 09/04/18 at 09:00 Tramadol HCl (Ultram) 50 mg Q6H PRN PO PAIN Last administered on 09/05/18 02:12; Admin Dose 50 MG; Start 09/03/18 at 14:00 IV Flush (NS 3 ml) 3 ml PER PROTOCOL IV ; Start 09/03/18 at 14:30 Ondansetron HCl (Zofran Inj) 4 mg Q6H PRN IV NAUSEA/VOMITING; Start 09/03/18 at 14:30 Acetaminophen (Tylenol Tab) 650 mg Q6H PRN PO .PAIN 1-3 OR TEMP; Start 09/03/18 at 14:30 Magnesium Hydroxide (Milk Of Mag) 30 ml DAILY PRN PO .CONSTIPATION; Start 09/03/18 at 14:30 Bisacodyl (Dulcolax Supp) 10 mg DAILY PRN OK .CONSTIPATION; Start 09/03/18 at 14:30 Sodium Biphosphate/ Sodium Phosphate (Fleet Enema) 133 ml DAILY PRN OK .CONSTIPATION; Start 09/03/18 at 14:30 Pantoprazole (Protonix Tab) 40 mg DAILY@06 PO Last administered on 09/06/18 06:00; Admin Dose 40 MG; Start 09/04/18 at 06:00 Enoxaparin Sodium (Lovenox) 40 mg DAILY SC Last administered on 09/06/18 09:17; Admin Dose 40 MG; Start 09/04/18 at 09:00 Senna/Docusate Sodium (Senokot-S) 1 tab BID PO Last administered on 09/06/18 09:15; Admin Dose 1 TAB; Start 09/03/18 at 14:30 Phenazopyridine HCl (Pyridium) 100 mg TID PO Last administered on 09/06/18 12:24; Admin Dose 100 MG; Start 09/04/18 at 13:00 Ceftriaxone Sodium 50 ml @ 100 mls/hr Q24H IVPB Last administered on 09/05/18 15:23; Admin Dose 100 MLS/HR; Start 09/04/18 at 16:00 Carvedilol (Coreg Cr) 20 mg DAILY PO Last administered on 09/06/18 09:15; Admin Dose 20 MG; Start 09/05/18 at 09:00 Multivitamins Therapeutic (Theragran) 1 tab DAILY PO Last administered on 09/06/18 09:15; Admin Dose 1 TAB; Start 09/05/18 at 09:00 Tamsulosin HCl (Flomax) 0.4 mg BID PO Last administered on 09/06/18 09:14; Admin Dose 0.4 MG; Start 09/05/18 at 21:00 PAMELA SINGH MD Sep 06, 2018 15:26
[2018-09-06] MEDS: CEFTRIAXONE 1 GM/50 ML (PMX) 50 ML IVPB SCH (15:48)
[2018-09-06 19:45] VITALS: BP 102/54; PULSE 87; RESP 19
[2018-09-07] MEDS ORDERED: AL HYDROX/MG HYDROX/SIMETH 30 ML CUP PO ONE (01:36)
[2018-09-07 02:14] VITALS: BP 126/58; PULSE 95; RESP 17
[2018-09-07] MEDS: PANTOPRAZOLE (EC) 40 MG TAB PO SCH (06:27)
[2018-09-07 08:00] VITALS: BP 147/56; PULSE 96; RESP 18
--- NOTE | 2018-09-07 08:37 | PN ---
Date/Time of Note Date/Time of Note DATE: 09/07/18 TIME: 08:37 Assessment/Plan VTE Prophylaxis Risk score (from Ns)>0 risk: 4 SCD applied (from Ns): Yes Pharmacological prophylaxis: LMWH Lines/Catheters IV Catheter Type (from Nrs): Saline Lock Urinary Cath still in place: No Assessment/Plan Assessment/Plan 1. Acute abdominal pain- improving - patient tolerating PO intake and states experiencing gastritis but relieved with PPI - No longer with nausea and vomiting - KUB shows resolution of constipation/fecal impaction 2. UTI - ID on board and appreciate recommendations. Urine cx noted and antibiotics adjusted. Can d/c on 7 days of Augmentin 3. Leukocytosis- resolved - most likely secondary to #2 - monitor 4. HTN - stable 5. Chronic constipation- improving - bowel regime on board 6. Arthritis - on tramadol as outpatient. Will continue 7. Anemia - monitor H/H - continue folic acid 8. Disposition - Medically stable for discharge. Per patient she has 2 caregivers at home but per PCP, she has no one to care for her. SW consulted for assistance Result Diagram: 09/07/18 0450 09/07/18 0450 Results 24hrs Laboratory Tests Test 09/06/18 11:16 09/07/18 04:50 White Blood Count 7.5 # 7.3 Red Blood Count 3.80 L 4.12 L Hemoglobin 10.0 L 10.8 L Hematocrit 31.9 L 33.6 L Mean Corpuscular Volume 83.9 81.6 L Mean Corpuscular Hemoglobin 26.3 L 26.2 L Mean Corpuscular Hemoglobin Concent 31.3 L 32.1 Red Cell Distribution Width 14.3 14.0 Platelet Count 196 240 # Mean Platelet Volume 9.7 10.1 Immature Granulocytes % 0.700 H 0.800 H Neutrophils % 82.0 H 74.0 Lymphocytes % 12.0 L 17.9 Monocytes % 3.7 5.0 Eosinophils % 1.2 1.7 Basophils % 0.4 0.6 Nucleated Red Blood Cells % 0.0 0.0 Immature Granulocytes # 0.050 H 0.060 H Neutrophils # 6.1 5.4 Lymphocytes # 0.9 1.3 Monocytes # 0.3 0.4 Eosinophils # 0.1 0.1 Basophils # 0.0 0.0 Nucleated Red Blood Cells # 0.0 0.0 Sodium Level 136 137 Potassium Level 4.1 4.1 Chloride Level 110 106 Carbon Dioxide Level 21 23 Anion Gap 5 8 Blood Urea Nitrogen 12 # 8 Creatinine 0.61 0.55 Glucose Level 145 111 Calcium Level 7.4 L 8.0 L Phosphorus Level 1.7 L 1.7 L Magnesium Level 2.5 2.3 Albumin 2.9 L 3.2 L Subjective 24 Hr Interval Summary Free Text/Dictation Patient is complaining of some gastritis but states eating better. Requesting to go home. She states she has a male and female caregiver at home. Received a call from the PCP yesterday that patient needs to go to [facility] since no one is home to care for her. SW consulted for assistance. Exam/Review of Systems Exam Vitals Vital Signs Date Temp Pulse Resp B/P (MAP) Pulse Ox O2 O2 Flow FiO2 Time Delivery Rate 09/07/18 98.3 95 17 126/58 97 02:14 (80) 09/06/18 Room Air 13:44 Intake and Output 09/06/18 09/06/18 09/07/18 1515:00 23:00 07:00 IntakeIntake Total 760 ml 290 ml BalanceBalance 760 ml 290 ml Exam General: Patient is laying in bed and answers questions appropriately. no acute distress Neck: Supple, nontender, midline Respiratory: Clear to auscultation bilaterally. no wheezing or rhonchi Cardiovascular: regular rate and rhythm, no obvious murmurs Gastrointestinal: soft, nontender to palpation, nondistended, bowel sounds heard. no rebound or guarding Neurological: Moves all extremities spontaneously Skin: No new skin lesions Results Results 24hrs Laboratory Tests Test 09/06/18 11:16 09/07/18 04:50 White Blood Count 7.5 # 7.3 Red Blood Count 3.80 L 4.12 L Hemoglobin 10.0 L 10.8 L Hematocrit 31.9 L 33.6 L Mean Corpuscular Volume 83.9 81.6 L Mean Corpuscular Hemoglobin 26.3 L 26.2 L Mean Corpuscular Hemoglobin Concent 31.3 L 32.1 Red Cell Distribution Width 14.3 14.0 Platelet Count 196 240 # Mean Platelet Volume 9.7 10.1 Immature Granulocytes % 0.700 H 0.800 H Neutrophils % 82.0 H 74.0 Lymphocytes % 12.0 L 17.9 Monocytes % 3.7 5.0 Eosinophils % 1.2 1.7 Basophils % 0.4 0.6 Nucleated Red Blood Cells % 0.0 0.0 Immature Granulocytes # 0.050 H 0.060 H Neutrophils # 6.1 5.4 Lymphocytes # 0.9 1.3 Monocytes # 0.3 0.4 Eosinophils # 0.1 0.1 Basophils # 0.0 0.0 Nucleated Red Blood Cells # 0.0 0.0 Sodium Level 136 137 Potassium Level 4.1 4.1 Chloride Level 110 106 Carbon Dioxide Level 21 23 Anion Gap 5 8 Blood Urea Nitrogen 12 # 8 Creatinine 0.61 0.55 Glucose Level 145 111 Calcium Level 7.4 L 8.0 L Phosphorus Level 1.7 L 1.7 L Magnesium Level 2.5 2.3 Albumin 2.9 L 3.2 L Medications Medication Current Medications Duloxetine HCl (Cymbalta) 30 mg DAILY PO Last administered on 09/06/18 09:13; Admin Dose 30 MG; Start 09/04/18 at 09:00 Folic Acid (Folic Acid) 1 mg DAILY PO Last administered on 09/06/18 09:15; Admin Dose 1 MG; Start 09/04/18 at 09:00 Nifedipine (Procardia Xl) 60 mg DAILY PO Last administered on 09/06/18 09:15; Admin Dose 60 MG; Start 09/04/18 at 09:00 Oxybutynin Chloride (Ditropan Xl) 5 mg DAILY PO Last administered on 09/06/18 09:15; Admin Dose 5 MG; Start 09/04/18 at 09:00 Tramadol HCl (Ultram) 50 mg Q6H PRN PO PAIN Last administered on 09/05/18at 02:12; Admin Dose 50 MG; Start 09/03/18 at 14:00 IV Flush (NS 3 ml) 3 ml PER PROTOCOL IV ; Start 09/03/18 at 14:30 Ondansetron HCl (Zofran Inj) 4 mg Q6H PRN IV NAUSEA/VOMITING; Start 09/03/18 at 14:30 Acetaminophen (Tylenol Tab) 650 mg Q6H PRN PO .PAIN 1-3 OR TEMP; Start 09/03/18 at 14:30 Magnesium Hydroxide (Milk Of Mag) 30 ml DAILY PRN PO .CONSTIPATION; Start 09/03/18 at 14:30 Bisacodyl (Dulcolax Supp) 10 mg DAILY PRN [place] .CONSTIPATION; Start 09/03/18 at 14:30 Sodium Biphosphate/ Sodium Phosphate (Fleet Enema) 133 ml DAILY PRN CO .CONSTIPATION; Start 09/03/18 at 14:30 Pantoprazole (Protonix Tab) 40 mg DAILY@06 PO Last administered on 09/07/18 06:27; Admin Dose 40 MG; Start 09/04/18 at 06:00 Enoxaparin Sodium (Lovenox) 40 mg DAILY SC Last administered on 09/06/18 09:17; Admin Dose 40 MG; Start 09/04/18 at 09:00 Senna/Docusate Sodium (Senokot-S) 1 tab BID PO Last administered on 09/06/18 21:05; Admin Dose 1 TAB; Start 09/03/18 at 14:30 Phenazopyridine HCl (Pyridium) 100 mg TID PO Last administered on 09/06/18 21:05; Admin Dose 100 MG; Start 09/04/18 at 13:00 Ceftriaxone Sodium 50 ml @ 100 mls/hr Q24H IVPB Last administered on 09/06/18 15:48; Admin Dose 100 MLS/HR; Start 09/04/18 at 16:00 Carvedilol (Coreg Cr) 20 mg DAILY PO Last administered on 09/06/18 09:15; Admin Dose 20 MG; Start 09/05/18 at 09:00 Multivitamins Therapeutic (Theragran) 1 tab DAILY PO Last administered on 09/06/18 09:15; Admin Dose 1 TAB; Start 09/05/18 at 09:00 Tamsulosin HCl (Flomax) 0.4 mg BID PO Last administered on 09/06/18 21:05; Admin Dose 0.4 MG; Start 09/05/18 at 21:00 PAMELA SINGH MD Sep 07, 2018 08:37
[2018-09-07] MEDS ORDERED: NEUTRA-PHOS 250 MG PACKET PO ONE (09:00)
[2018-09-07] MEDS: NIFEdipine (XL) 60 MG TAB PO SCH (09:19)
[2018-09-07] MEDS: MULTIVITAMINS THERAPEUTIC TAB PO SCH (09:19)
[2018-09-07] MEDS: PHENAZOPYRIDINE 100 MG TAB PO SCH ×2 (09:19→12:29)
[2018-09-07] MEDS: OXYBUTYNIN (XL) 5 MG TAB PO SCH (09:19)
[2018-09-07] MEDS: FOLIC ACID 1 MG TAB PO SCH (09:19)
[2018-09-07] MEDS: SENNA/DOCUSATE NA (8.6MG/50MG) TAB PO SCH (09:19)
[2018-09-07] MEDS: DULOXETINE 30 MG CAP DR PO SCH (09:19)
[2018-09-07] MEDS: TAMSULOSIN (SR) 0.4 MG CAP PO SCH (09:19)
[2018-09-07] MEDS: CARvedilol (CR) 10 MG CAP PO SCH (09:20)
[2018-09-07] MEDS: ENOXAPARIN 40 MG/0.4 ML SYG SC SCH (09:22)
[2018-09-07] MEDS ORDERED: CORE10CR PO (11:31)
[2018-09-07] MEDS ORDERED: TAMS-14 PO (11:31)
[2018-09-07] MEDS ORDERED: AMOX500C2 PO (11:31)
[2018-09-07] MEDS ORDERED: UDMOM PO (11:34)
[2018-09-07] MEDS ORDERED: SENOKOTS PO (11:34)
--- NOTE | 2018-09-07 11:38 | PDOCDIS ---
Discharge Instructions DIAGNOSIS Discharge Diagnosis 1. Acute abdominal pain- resolving 2. UTI 3. HTN 4. Chronic constipation- improving 5. Arthritis CONDITION [id number] Patient Condition: [id number] Stable HOME CARE INSTRUCTIONS: [id number] Diet Instructions: [id number] Low Fat /Cholesterol ACTIVITY: [id number] Activity Restrictions: [id number] No Restrictions FOLLOW UP/APPOINTMENTS Follow-up Plan 1. Follow up with your primary care physician in 1 weeks 2. Take Nifedipine and Carvedilol 20 mg daily for blood pressure control. Your Carvedilol dose was increased to 20 mg to decrease the amount of different medications you are on for your blood pressure 3. Take Milk of Magnesium daily to prevent constipation and if still e xperiencing difficulty passing bowel movement, take Senna S twice a day. 4. Take Amoxicillin three times a day for 6 more days with next dose tomorrow for treatment of your urinary tract infection 5. It is important to make sure you have daily bowel movements. Your constipation may be contributing to your urinary tract infection 6. If experiencing any concerning symptoms, please return to your closest emergency department 1. seguimiento con melara mdico de atencin primaria en 1 semanas 2. [place] nifedipine y carvedilol 20 mg al da para el control de la presin arterial. [place] dosis de carvedilol aument a 20 mg para disminuir la cantidad de diferentes medicamentos que usted est tomando para melara presin arterial 3. [place] la leche de magnesio diariamente para prevenir el estreimiento y si todava experimenta dificultad para evacuar el intestino, tome Senna S dos veces al da. 4. [place] amoxicilina alejandro veces al da naima 6 white ms con la siguiente dosis maana para el tratamiento de la infeccin del tracto urinario 5. es importante asegurarse de que tiene evacuaciones intestinales diarias. El estreimiento puede contribuir a la infeccin de las vas urinarias 6. Si experimenta algn sntoma relacionado, por favor regrese a melara Departamento de emergencias PAMELA Cochran MD Sep 07, 2018 11:38
[2018-09-07] MEDS ORDERED: OMEP20CA16 PO (11:39)
[2018-09-07 14:00] VITALS: BP 140/62; PULSE 84; RESP 18
--- NOTE | 2018-09-07 14:15 | DS ---
Date/Time of Note Date/Time of Note DATE: 09/07/18 TIME: 14:10 Discharge Summary Admission/Discharge Info Admit Date/Time Sep 03, 2018 at 12:56 Discharge Date/Time 09/07/18 Discharge Diagnosis 1. Acute abdominal pain- resolving 2. UTI 3. HTN 4. Chronic constipation- improving 5. Arthritis Patient Condition: Stable Consults Infectious disease- Dr Shoemaker Procedures PROCEDURE: XR Abdomen. CLINICAL INDICATION: Abdomen pain. TECHNIQUE: AP supine abdomen x-ray. COMPARISON: CT scan of the abdomen and pelvis dated 09/03/2018. FINDINGS: Surgical clips are present in the upper abdomen and left inguinal region. The bowel gas pattern is normal with no evidence of obstruction. There are no abnormal calcifications overlying the urinary tracts. There are degenerative changes of the spine. There has been open reduction and internal fixation of both hips with rods in the femurs and screws in the femoral heads and necks. IMPRESSION: 1. Prior upper abdomen surgery and left inguinal surgery. 2. No evidence of bowel obstruction. 3. Degenerative changes of the spine. 4. Prior bilateral hip surgery. 5. Otherwise unremarkable study. RPTAT: QQ .Michael Collins MD, MD Date Time Electronically viewed and signed by .Michael Collins MD, MD on 09/04/2018 17:48 AMENDMENT: 09/03/2018 12:15:14 PM Giovany Nicole M.d 4. Small right inguinal hernia containing nondistended segment of distal small bowel. No evidence of bowel obstruction. PROCEDURE: CT Abdomen and Pelvis without intravenous contrast. CLINICAL INDICATION: Abdominal pain TECHNIQUE: CT scan of the abdomen and pelvis without intravenous contrast was performed on a multi-detector high-resolution CT scanner. Coronal and sagittal reformatted images were obtained from the axial source images. DICOM images are available. CTDIvol 9.96 mGy, and DLP 504.88 mGy.cm. One or more of the following dose reduction techniques were used: - Automated exposure control. - Adjustment of the mA and/or kV according to patient size. - Use of iterative reconstruction technique. COMPARISON: CT 09/13/2014 FINDINGS: In the absence of intravenous contrast, the study constitutes a limited assessment of the solid organs, bowel and vessels. Lower thorax: There are coronary artery calcifications. Liver: Normal. Biliary: Postsurgical changes of cholecystectomy. Stable prominence of the bile ducts, likely related to post-cholecystectomy state. Pancreas: Normal. Spleen: Normal. Adrenal Glands: Stable mild low density thickening of the adrenal glands, likely benign. Urinary: There are several bilateral nonobstructing renal calcifications, measuring up to of 5 mm, similar to prior exam . However, there is bilateral mild hydroureteronephrosis. No distal obstructing ureteral stone is seen. Bladder is mildly distended. Gastrointestinal: The rectum is distended with moderate to large amount of stool. Nondistended segment of distal small bowel in a small right inguinal hernia. No evidence of bowel obstruction. Appendix is identified and appears unremarkable. Lymph nodes: No enlarged abdominal or pelvic lymph nodes. Vascular: There are atherosclerotic calcifications of the aorta and iliac branches, without evidence of aneurysm. Peritoneum/mesentery: No free fluid or free air. Reproductive organs: Normal. Musculoskeletal: Degenerative changes of the spine. Bilateral hip arthroplasties are seen, causing streak artifact partially obscuring the pelvis. IMPRESSION: 1. Rectum is distended with a moderate to large amount of stool. Correlate for fecal impaction and constipation. 2. Mild bilateral hydroureteronephrosis. Mild distension of the bladder . No obstructing ureteral stones are seen. Correlate for bladder outlet obstruction. 3. Several stable bilateral nonobstructing renal stones. RPTAT: HH Physician João Date Time Electronically viewed and signed by Giovany Nicole Physician on 09/03/2018 12:15 Hx of Present Illness 87 yo F with PMH HTN, HLD, anemia, arthritis, GERD, and chronic constipation presented to ED with worsening abdominal pain and nausea for the past 2 days. Patient states she has chronic constipation and usually take daily medication to help move her bowels but last BM was 2 days ago. She admits to discomfort with eating and nausea with vomiting. Vomited 3 times in the past 2 days since symptoms started. Patient also admits to dysuria and suprapubic discomfort for the past 2 weeks. States has been on antibiotics for the past couple days but unsure name and did not have a bottle of antibiotics in her possession. She did have pyridium however. Patient has a history of VRE UTI in the past. Patient admits to subjective fevers, but denies any chest pain, shortness of breath, dizziness, diarrhea, blood in urine, or LOC. Patient usually ambulated with walker. Hospital Course Patient was admitted for treatment of constipation and UTI. patient was given stool softeners with resolution of constipation during hospital stay. Patient was started on IV antibiotics and ID was consulted for antibiotic recommend ations. Patients suprapubic discomfort improved significantly and patients PO intake improved as well. Patient progressed well with physical therapy and occupational therapy with recommendations for HHPT when cleared for discharge. Patients urine cultures returned and she was transitioned to PO antibiotics. Patient remained afebrile and WBC normalized. Patients PCP was concerned about patients safety and recommended SNF placement. After discussion with SW who followed up with PCP and HH agency, patient was adamant about returning home rather than SNF placement. She has [facility]HSS and HHPT available to her. Patient's presenting symptoms improved significantly and on day of discharge, patients vitals and physical exam were stable. Patient was discharged home with home health services. Home Meds Active Scripts Hydrocodone Bit-Acetaminophen (Hydrocodone Bit-APAP) 5-325MG Tablet, 1 TAB PO Q6H PRN for MODERATE PAIN LEVEL 4-6, #30 TAB Prov:SERAFIN GARZA [employer] 01/19/17 Metoprolol Tartrate* (Lopressor*) 25 Mg Tab, 25 MG PO BID, #60 TAB Prov:SERAFIN GARZA [employer] 01/19/17 Benazepril Hcl* (Benazepril Hcl*) 10 Mg Tablet, 10 MG PO DAILY, #30 TAB Prov:SERAFIN GARZA [employer] 01/19/17 Reported Medications Carvedilol* (Coreg CR*) 10 Mg Capsr, 10 MG PO DAILY, #30 CAP 09/03/18 Tramadol Hcl* (Ultram*) 50 Mg Tablet, 50 MG PO Q6H PRN for PAIN, TAB 09/03/18 Phenazopyridine Hcl* (Phenazopyridine Hcl*) 100 Mg Tablet, 100 MG PO TID, TAB 09/03/18 Nifedipine* (Nifedipine ER*) 60 Mg Tablet.sa, 60 MG PO DAILY, TAB.SA 09/03/18 Folic Acid* (Folic Acid*) 1 Mg Tablet, 1 MG PO DAILY, TAB 09/03/18 Duloxetine Hcl* (Duloxetine Hcl*) 30 Mg Capsule.dr, 30 MG PO DAILY, #30 CAP 09/03/18 Oxybutynin Chloride* (Ditropan* XL) 5 Mg Tabsr, 5 MG PO DAILY, TAB.SA 01/12/17 Hydroxychloroquine Sulfate* (Plaquenil*) 200 Mg Tab, 200 MG PO DAILY, TAB 01/12/17 Discontinued Reported Medications Gabapentin* (Gabapentin*) 400 Mg Capsule, 400 MG PO TID, #90 CAP 01/12/17 Duloxetine Hcl* (Duloxetine Hcl*) 20 Mg Capsule.dr, 20 MG PO DAILY, #30 CAP 01/12/17 Potassium Chloride* (K-Dur*) 10 Meq Tab.prt.sr, 10 MEQ PO DAILY, TAB 01/12/17 Aspirin (Low Dose Aspirin) 81 Mg Tablet.dr, 81 MG PO DAILY, #30 TAB 01/12/17 Discontinued Scripts Polyethylene Glycol* (Miralax*) 17 Gm Powd.pack, 17 GM PO DAILY for 7 Days, PACKET Prov:EDWARD BRADFORD MD 07/29/18 Ferrous Sulfate* (Ferrous Sulfate*) 325 Mg Tabec, 325 MG PO BID, #60 TAB Prov:GARZA,SERAFIN [employer] 01/19/17 Furosemide* (Lasix*) 20 Mg Tablet, 20 MG PO DAILY, #30 TAB Prov:GARZA,SERAFIN [employer] 01/19/17 Pantoprazole* (Protonix*) 40 Mg Tablet., 40 MG PO DAILY, #30 TAB Prov:GARZA,SERAFIN [employer] 01/19/17 Simethicone* (Mylicon*) 80 Mg Tab, 80 MG PO Q6H PRN for DISTENSION/GAS/BLOATING, #30 TAB Prov:GARZA,SERAFIN [employer] 01/19/17 Magnesium Hydroxide* (Joaquin' MOM*) 30 Ml Susp, 30 ML PO DAILY PRN for CONSTIPATION for 30 Days Prov:GARZA,SERAFIN [employer] 01/19/17 [Calcium Carbonate] 1.25 GM TAB No Conflict Check, 1.25 GM PO DAILY, #30 Prov:GREGSERAFINAIDAN Montero NP 01/19/17 Follow-up Plan 1. Follow up with your primary care physician in 1 weeks 2. Take Nifedipine and Carvedilol 20 mg daily for blood pressure control. Your Carvedilol dose was increased to 20 mg to decrease the amount of different medications you are on for your blood pressure 3. Take Milk of Magnesium daily to prevent constipation and if still experiencing difficulty passing bowel movement, take Senna S twice a day. 4. Take Amoxicillin three times a day for 6 more days with next dose tomorrow for treatment of your urinary tract infection 5. It is important to make sure you have daily bowel movements. Your constipation may be contributing to your urinary tract infection 6. If experiencing any concerning symptoms, please return to your closest em ergency department 1. seguimiento con kim mdico de atencin primaria en 1 semanas 2. [place] nifedipine y carvedilol 20 mg al da para el control de la presin arterial. [place] dosis de carvedilol aument a 20 mg para disminuir la cantidad de diferentes medicamentos que usted est tomando para kim presin arterial 3. [place] la leche de magnesio diariamente para prevenir el estreimiento y si todava experimenta dificultad para evacuar el intestino, tome Senna S dos veces al da. 4. [place] amoxicilina alejandro veces al da naima 6 white ms con la siguiente dosis maana para el tratamiento de la infeccin del tracto urinario 5. es importante asegurarse de que tiene evacuaciones intestinales diarias. El estreimiento puede contribuir a la infeccin de las vas urinarias 6. Si experimenta algn sntoma relacionado, por favor regrese a kim Departamento de emergencias ms mic Primary Care Provider Alexandra Bocanegra MD Time spent on discharge: > 30 minutes Pending Labs Laboratory Tests Test 09/07/18 04:50 White Blood Count 7.3 10^3/ul (4.8-10.8) Red Blood Count 4.12 10^6/ul (4.20-5.40) Hemoglobin 10.8 g/dl (12.0-16.0) Hematocrit 33.6 % (37.0-47.0) Mean Corpuscular Volume 81.6 fl (82.0-101.0) Mean Corpuscular Hemoglobin 26.2 pg (29.0-33.0) Mean Corpuscular Hemoglobin Concent 32.1 g/dl (32.0-37.0) Red Cell Distribution Width 14.0 % (11.5-14.5) Platelet Count 240 10^3/UL (140-415) Mean Platelet Volume 10.1 fl (7.4-10.4) Immature Granulocytes % 0.800 % (0.001-0.429) Neutrophils % 74.0 % (39.0-77.0) Lymphocytes % 17.9 % (15.0-51.0) Monocytes % 5.0 % (0.0-11.0) Eosinophils % 1.7 % (0.0-7.0) Basophils % 0.6 % (0.0-2.0) Nucleated Red Blood Cells % 0.0 /100WBC (0.0-0.0) Immature Granulocytes # 0.060 10^3/ul (0.0-0.031) Neutrophils # 5.4 10^3/ul (1.6-7.5) Lymphocytes # 1.3 10^3/ul (0.8-2.9) Monocytes # 0.4 10^3/ul (0.3-0.9) Eosinophils # 0.1 10^3/ul (0.0-0.5) Basophils # 0.0 10^3/ul (0.0-0.1) Nucleated Red Blood Cells # 0.0 10^3/ul (0.0-0.0) Sodium Level 137 mmol/L (135-144) Potassium Level 4.1 mmol/L (3.5-5.1) Chloride Level 106 mmol/L (97-110) Carbon Dioxide Level 23 mmol/L (21-31) Anion Gap 8 (5-13) Blood Urea Nitrogen 8 mg/dl (7-20) Creatinine 0.55 mg/dl (0.44-1.00) Glucose Level 111 mg/dl (70-220) Calcium Level 8.0 mg/dl (8.4-10.2) Phosphorus Level 1.7 mg/dl (2.5-4.9) Magnesium Level 2.3 mg/dl (1.7-2.5) Albumin 3.2 g/dl (3.3-4.9) PAMELA SINGH MD Sep 07, 2018 14:15
--- NOTE | 2018-09-07 14:28 | CONS ---
Assessment/Plan Assessment/Plan Hospital Course (Demo Recall) Alert, feels good, wants to go home Antimicrobials: Rocephin Urine culture grew strep agalactiae CT abdomen and pelvis revealed distended rectum with a moderate to large amount of stool. Mild bilateral hydroureteronephrosis. Mild distention of the bladder. No obstructing ureteral stones Physical examination: Fragile well-developed elderly woman who is alert in no distress. Head atraumatic normocephalic. Neck is supple. Chest rise symmetrical breath sounds clear. Heart: S1-S2. Abdomen soft bowel sounds present extremities without cyanosis. Assessment: 1. Systemic inflammatory response syndrome 2. Recurrent UTI 3. Urinary retention==> on Flomax 4. Fecal impaction, s/p BM's Plan: Remains stable, anticipate dc on oral Amoxil for 7 days Consultation Date/Type/Reason Admit Date/Time Sep 03, 2018 at 12:56 Initial Consult Date Type of Consult id Date/Time of Note DATE: 09/07/18 TIME: 14:27 Exam/Review of Systems Exam Vitals Vital Signs Date Temp Pulse Resp B/P (MAP) Pulse Ox O2 O2 Flow FiO2 Time Delivery Rate 09/07/18 98.8 96 18 147/56 96 08:00 (86) 09/06/18 Room Air 13:44 Intake and Output 09/06/18 09/06/18 09/07/18 1515:00 23:00 07:00 IntakeIntake Total 760 ml 290 ml BalanceBalance 760 ml 290 ml Results Result Diagram: 09/07/18 0450 09/07/18 0450 Results 24hrs Laboratory Tests Test 09/07/18 04:50 White Blood Count 7.3 Red Blood Count 4.12 L Hemoglobin 10.8 L Hematocrit 33.6 L Mean Corpuscular Volume 81.6 L Mean Corpuscular Hemoglobin 26.2 L Mean Corpuscular Hemoglobin Concent 32.1 Red Cell Distribution Width 14.0 Platelet Count 240 # Mean Platelet Volume 10.1 Immature Granulocytes % 0.800 H Neutrophils % 74.0 Lymphocytes % 17.9 Monocytes % 5.0 Eosinophils % 1.7 Basophils % 0.6 Nucleated Red Blood Cells % 0.0 Immature Granulocytes # 0.060 H Neutrophils # 5.4 Lymphocytes # 1.3 Monocytes # 0.4 Eosinophils # 0.1 Basophils # 0.0 Nucleated Red Blood Cells # 0.0 Sodium Level 137 Potassium Level 4.1 Chloride Level 106 Carbon Dioxide Level 23 Anion Gap 8 Blood Urea Nitrogen 8 Creatinine 0.55 Glucose Level 111 Calcium Level 8.0 L Phosphorus Level 1.7 L Magnesium Level 2.3 Albumin 3.2 L Medications Medication Current Medications Duloxetine HCl (Cymbalta) 30 mg DAILY PO Last administered on 09/07/18 09:19; Admin Dose 30 MG; Start 09/04/18 at 09:00 Folic Acid (Folic Acid) 1 mg DAILY PO Last administered on 09/07/18 09:19; Admin Dose 1 MG; Start 09/04/18 at 09:00 Nifedipine (Procardia Xl) 60 mg DAILY PO Last administered on 09/07/18 09:19; Admin Dose 60 MG; Start 09/04/18 at 09:00 Oxybutynin Chloride (Ditropan Xl) 5 mg DAILY PO Last administered on 09/07/18 09:19; Admin Dose 5 MG; Start 09/04/18 at 09:00 Tramadol HCl (Ultram) 50 mg Q6H PRN PO PAIN Last administered on 09/05/18at 02:12; Admin Dose 50 MG; Start 09/03/18 at 14:00 IV Flush (NS 3 ml) 3 ml PER PROTOCOL IV ; Start 09/03/18 at 14:30 Ondansetron HCl (Zofran Inj) 4 mg Q6H PRN IV NAUSEA/VOMITING; Start 09/03/18 at 14:30 Acetaminophen (Tylenol Tab) 650 mg Q6H PRN PO .PAIN 1-3 OR TEMP; Start 09/03/18 at 14:30 Magnesium Hydroxide (Milk Of Mag) 30 ml DAILY PRN PO .CONSTIPATION; Start 09/03/18 at 14:30 Bisacodyl (Dulcolax Supp) 10 mg DAILY PRN [place] .CONSTIPATION; Start 09/03/18 at 14:30 Sodium Biphosphate/ Sodium Phosphate (Fleet Enema) 133 ml DAILY PRN [place] .CONSTIPATION; Start 09/03/18 at 14:30 Pantoprazole (Protonix Tab) 40 mg DAILY@06 PO Last administered on 09/07/18at 06:27; Admin Dose 40 MG; Start 09/04/18 at 06:00 Enoxaparin Sodium (Lovenox) 40 mg DAILY SC Last administered on 09/07/18 09:22; Admin Dose 40 MG; Start 09/04/18 at 09:00 Senna/Docusate Sodium (Senokot-S) 1 tab BID PO Last administered on 09/07/18 09:19; Admin Dose 1 TAB; Start 09/03/18 at 14:30 Phenazopyridine HCl (Pyridium) 100 mg TID PO Last administered on 09/07/18 12:29; Admin Dose 100 MG; Start 09/04/18 at 13:00 Ceftriaxone Sodium 50 ml @ 100 mls/hr Q24H IVPB Last administered on 09/06/18 15:48; Admin Dose 100 MLS/HR; Start 09/04/18 at 16:00 Carvedilol (Coreg Cr) 20 mg DAILY PO Last administered on 09/07/18 09:20; Admin Dose 20 MG; Start 09/05/18 at 09:00 Multivitamins Therapeutic (Theragran) 1 tab DAILY PO Last administered on 09/07/18 09:19; Admin Dose 1 TAB; Start 09/05/18 at 09:00 Tamsulosin HCl (Flomax) 0.4 mg BID PO Last administered on 09/07/18 09:19; Admin Dose 0.4 MG; Start 09/05/18 at 21:00 ANDREW BATISTA NP Sep 07, 2018 14:28
[2018-09-07] MEDS: CEFTRIAXONE 1 GM/50 ML (PMX) 50 ML IVPB SCH (15:48)
== END 2018-09-07 18:10 | disposition home health service (06) | DRG 690 ==
LOC: E/R 10:46 → PP2 12:56
PROVIDERS: ADMIT Internal Medicine; ATTEND Internal Medicine
DX: N39.0 Urinary tract infection, site not specified (principal); B95.1 Streptococcus, group B, as the cause of diseases classified elsewhere; D64.9 Anemia, unspecified; K59.09 Other constipation; R33.9 Retention of urine, unspecified; I10 Essential (primary) hypertension; Z16.21 Resistance to vancomycin; M19.90 Unspecified osteoarthritis, unspecified site; E78.5 Hyperlipidemia, unspecified; K21.9 Gastro-esophageal reflux disease without esophagitis; Z79.82 Long term (current) use of aspirin
CPT/HCPCS: 36415; 74018; 74176; 80048; 80053; 80069; 81001; 81003; 83690; 83735; 84484; 85025; 87086; 93005; 96374; 96375; 97110; 97116; 97162; 97165; 97530; J0696; J1650; J2270; J2405; J2543; J3475; J7030; J7050; P9612

== ENCOUNTER 2018-12-31 15:03 | Emergency (ER) | payer MEDICARE, OTHER ==
[~2018-12-31] VITALS: Ht 147.3 cm; Wt 59.1 kg
[~2018-12-31 15:03] MED LIST changes: +AMOX500C2 PO; -ASPI81TA52 PO; -BENA10TA4 PO; +CEPH-443 PO; +CORE10CR PO; -Calcium Carbonate PO; -DULO20CA17 PO; +DULO30CA47 PO; -FER325 PO; +FOLI-49 PO; -FURO-110 PO; -GABA400C14 PO; -HYDR-3601 PO; -HYDR200T5 PO; +HYDR25SU23 PR; -METO-448 PO; +NIFE60TA18 PO; +OMEP20CA16 PO; -PANT40TA3 PO; +PHEN-716 PO; -POLY17PO6 PO; -POTA10TA37 PO; +SENOKOTS PO; -SIME80TA60 PO; +TAMS-14 PO; +TRAM50TA PO; +[UNRECOGNIZED DRUG - CODE] TP
[2018-12-31 15:11] VITALS: Ht 147.3 cm; Wt 59.1 kg
--- NOTE | 2018-12-31 16:59 | EN ---
Date/Time of Note Date/Time of Note DATE: 12/31/18 TIME: 16:58 ER Progress Note MSE -88-year-old female with a history of hypertension hemorrhoids referred by primary doctor for anemia. She is uncertain of the results. Lab order initiated in the ED 3. Patient otherwise alert in no apparent distress without complaints of chest pain or shortness of breath. MONA RODRIGUEZ MD Dec 31, 2018 16:59
[2018-12-31] MEDS ORDERED: CEFTRIAXONE 1 GM/50 ML (PMX) 50 ML IVPB ONE (19:30)
--- NOTE | 2018-12-31 20:43 | ERD ---
ER Documentation Chief Complaint Chief Complaint SENT BY PCP FOR LOW HGB/HCT HPI This is an 88-year-old female with a past medical history of hypertension, chronic constipation, chronic abdominal pain, known internal and external hem orrhoids, known abdominal hernia who is presenting from an outpatient clinic for concerns of anemia and rectal bleeding. The patient reports that her hemorrhoids started bleeding this morning. She endorses significant amount of bleeding, which is what prompted her to go to her clinic. Hemoglobin was obtained and was resulted between 9 and 10. Given the patient's active bleeding, it was ultimately determined that the patient should come to the emergency department for further assessment. By the time the patient arrived, the patient's bleeding had stopped. She does not endorse any constipation or diarrhea. She does not endorse black or tarry stools. She does not endorse any fatigue or weakness. She does not endorse any lightheadedness or dizziness. The patient does endorse chronic lower abdominal pain. She does not endorse any dysuria or hematuria or urgency or frequency. The patient does endorse occasional episodes of nausea but no vomiting. She does not endorse alleviating or exacerbating factors. The patient denies fever or chills. The patient has had no headache or vision changes. The patient does not endorse neck or back pain. The patient denies lightheadedness or dizziness. The patient has had no chest pain or trouble breathing. The patient has had no focal deficits. The patient has had no weakness or numbness or tingling to the face or extremities. ROS All systems reviewed and are negative except as per history of present illness. Medications Home Meds Active Scripts Omeprazole* (Omeprazole*) 20 Mg Capsule.dr, 20 MG PO DAILY, #30 CAP Prov:PAMELA SINGH MD 09/07/18 Sennosides/Docusate Sodium (Dok Plus Tablet) 1 Each Tablet, 1 TAB PO BID PRN for constipation for 30 Days, #60 TAB Prov:PAMELA SINGH MD 09/07/18 Magnesium Hydroxide* (Joaquin' MOM*) 30 Ml Susp, 30 ML PO DAILY PRN for .CONSTIPATION for 30 Days, #1 BOTTLE 9 Refills Prov:PAMELA SINGH MD 09/07/18 Amoxicillin* (Amoxicillin*) 500 Mg Cap, 500 MG PO Q8 for 6 Days, #18 CAP Prov:PAMELA SINGH MD 09/07/18 Carvedilol* (Coreg CR*) 10 Mg Capsr, 20 MG PO DAILY for 30 Days, #60 CAP 9 Refills Prov:PAMELA SINGH MD 09/07/18 Tamsulosin Hcl* (Flomax*) 0.4 Mg Cap.er.24h, 0.4 MG PO BID for 7 Days, #14 CAP Prov:PAMELA SINGH MD 09/07/18 Reported Medications Tramadol Hcl* (Ultram*) 50 Mg Tablet, 50 MG PO Q6H PRN for PAIN, TAB 09/03/18 Phenazopyridine Hcl* (Phenazopyridine Hcl*) 100 Mg Tablet, 100 MG PO TID, TAB 09/03/18 Nifedipine* (Nifedipine ER*) 60 Mg Tablet.sa, 60 MG PO DAILY, TAB.SA 09/03/18 Folic Acid* (Folic Acid*) 1 Mg Tablet, 1 MG PO DAILY, TAB 09/03/18 Duloxetine Hcl* (Duloxetine Hcl*) 30 Mg Capsule.dr, 30 MG PO DAILY, #30 CAP 09/03/18 Oxybutynin Chloride* (Ditropan* XL) 5 Mg Tabsr, 5 MG PO DAILY, TAB.SA 01/12/17 Allergies Allergies: Coded Allergies: No Known Allergy (Unverified , 09/03/18) PMhx/Soc History of Surgery: Yes (RIGHT HIP ORIF (2011)) Anesthesia Reaction: No Hx Neurological Disorder: No Hx Respiratory Disorders: No Hx Cardiac Disorders: Yes (HTN) Hx Psychiatric Problems: No Hx Miscellaneous Medical Probl: Yes (hemorrhoids) Hx Alcohol Use: No Hx Substance Use: No Hx Tobacco Use: No Smoking Status: Never smoker FmHx Family History: No diabetes Physical Exam Vitals Vital Signs Date Temp Pulse Resp B/P (MAP) Pulse Ox O2 O2 Flow FiO2 Time Delivery Rate 12/31/18 75 14 144/50 99 Room Air 18:29 (81) 12/31/18 98.4 71 16 144/50 96 Room Air 17:40 (81) 12/31/18 98.4 60 16 100/46 96 15:11 (64) Physical Exam Const: No acute distress Head: Atraumatic Eyes: Normal Conjunctiva ENT: Normal External Ears, Nose and Mouth. Neck: Full range of motion. No meningismus. Resp: Clear to auscultation bilaterally Cardio: Regular rate and rhythm, no murmurs Abd: Soft, non tender, non distended. Normal bowel sounds Rectal: Practice Director present at all times. Internal and external hemorrhoids are evident and multiple. There is no active bleeding. There is no thrombosis or necrosis of any hemorrhoids. No rectal prolapse. Skin: No petechiae or rashes Back: No midline or flank tenderness Ext: No cyanosis, or edema Neur: Awake and alert Psych: Normal Mood and Affect Result Diagram: 12/31/18 1712 12/31/18 1712 Results 24 hrs Laboratory Tests Test 12/31/18 17:12 12/31/18 18:55 White Blood Count 5.9 10^3/ul Red Blood Count 3.81 10^6/ul Hemoglobin 9.2 g/dl Hematocrit 30.3 % Mean Corpuscular Volume 79.5 fl Mean Corpuscular Hemoglobin 24.1 pg Mean Corpuscular Hemoglobin Concent 30.4 g/dl Red Cell Distribution Width 15.0 % Platelet Count 218 10^3/UL Mean Platelet Volume 10.0 fl Immature Granulocytes % 0.200 % Neutrophils % 65.1 % Lymphocytes % 23.7 % Monocytes % 8.5 % Eosinophils % 2.0 % Basophils % 0.5 % Nucleated Red Blood Cells % 0.0 /100WBC Immature Granulocytes # 0.010 10^3/ul Neutrophils # 3.8 10^3/ul Lymphocytes # 1.4 10^3/ul Monocytes # 0.5 10^3/ul Eosinophils # 0.1 10^3/ul Basophils # 0.0 10^3/ul Nucleated Red Blood Cells # 0.0 10^3/ul Prothrombin Time 12.6 Sec Prothrombin Time Ratio 1.0 INR International Normalized Ratio 0.93 Activated Partial Thromboplast Time 33.1 Sec Sodium Level 142 mmol/L Potassium Level 4.7 mmol/L Chloride Level 109 mmol/L Carbon Dioxide Level 24 mmol/L Anion Gap 9 Blood Urea Nitrogen 20 mg/dl Creatinine 1.15 mg/dl Est Glomerular Filtrat Rate mL/min mL/min Glucose Level 111 mg/dl Calcium Level 9.0 mg/dl Total Bilirubin 0.4 mg/dl Direct Bilirubin 0.00 mg/dl Indirect Bilirubin 0.4 mg/dl Aspartate Amino Transf (AST/SGOT) 19 IU/L Alanine Aminotransferase (ALT/SGPT) 14 IU/L Alkaline Phosphatase 53 IU/L Total Protein 6.8 g/dl Albumin 3.7 g/dl Globulin 3.10 g/dl Albumin/Globulin Ratio 1.19 Urine Color JIMBO Urine Clarity CLOUDY Urine pH 7.0 Urine Specific [place] 1.008 Urine Ketones NEGATIVE mg/dL Urine Nitrite NEGATIVE mg/dL Urine Bilirubin NEGATIVE mg/dL Urine Urobilinogen NEGATIVE mg/dL Urine Leukocyte Esterase 3+ Otis/ul Urine Microscopic RBC 11 /HPF Urine Microscopic WBC > 182 /HPF Urine Squamous Epithelial Cells MODERATE /HPF Urine Bacteria MODERATE /HPF Urine Hemoglobin 1+ mg/dL Urine Glucose NEGATIVE mg/dL Urine Total Protein 1+ mg/dl Current Medications Medications Dose Sig/Mariaa Start Time Status Last (Trade) Ordered Route PRN Stop Time Admin Dose Reason Admin Ceftriaxone 50 ml @ ONCE ONCE 12/31/18 DC Sodium 100 mls/hr IVPB 19:30 12/31/18 19:59 Procedures/MDM MDM The patient's presentation warrants further investigation. Previous medical records, if available, were reviewed. LABS The patient's laboratory testing was obtained and reviewed. No emergent treatment was required unless described below. CBC: Microcytic anemia, not emergent. Hemoglobin and hematocrit are above levels that would require emergent transfusion especially without any active bleeding. No E/o systemic infection or thrombocytopenia Chemistry: No E/o severe acidosis or alkalosis or renal failure or liver disease or diabetic ketoacidosis PT/INR: No E/o significant coagulopathy Urine: E/o acute infection with hematuria EKG EKG read by me: Rate/Rhythm: Regular rate and rhythm at a rate of 72 bpm Intervals: Normal Burnett: Left axis deviation Impression: Low voltage QRS but no evidence of acute ischemia or arrhythmia TREATMENT/DISPOSITION The patient presents for bright red blood per rectum which were reportedly from hemorrhoids. There is no evidence of GI bleeding at this time. The patient's vitals are stable and the patient does not have evidence of symptomatic anemia. The patient may require evaluation for a hemorrhoidectomy, but I feel that this may be done in an outpatient setting. I did discuss the case with the on-call general surgeon, Dr. Agosto, who agreed that the patient does not require admission. He recommended sitz bath's with witchhazel. He also recommended Anusol ointment. Dr. Agosto would be able to see the patient in an outpatient setting, [place] He recommended that the patient follow-up with her primary care physician who can help coordinate care with a surgeon in an outpatient setting. The patient did also endorse suprapubic tenderness. Her urinalysis was consistent with a urinary tract infection with hematuria which will require treatment in an outpatient setting. The rest of the patient's abdominal exam was reassuring and unremarkable. I do not see any evidence of viscus perforation. The patient presents with abdominal pain. The patient does not have any evidence of peritonitis. The patient does not have clinical symptoms concerning for mesenteric ischemia or ischemic colitis. The patient does not have right upper quadrant tenderness, and I have low suspicion for gallstones, cholecystitis or biliary colic. The patient does not have any epigastric pain. I have low suspicion for gastritis, PUD or GERD. The patient does not have left upper quadrant tenderness. I have low suspicion for pancreatitis. The patient does not have any right lower quadrant tenderness, or periumbilical tenderness. I have low suspicion for appendicitis. The patient does not have any left lower quadrant tenderness, and I have low suspicion for diverticulosis or diverticulitis. The patient does not have any flank tenderness. I have decreased suspicion for nephrolithiasis or renal colic. The patient does not have any palpable pulsatile mass or severe abdominal pain radiating to the back. I have low suspicion for aortic aneurysm, dissection or rupture. DISCHARGE Upon reevaluation of the patient, symptoms have improved. No emergent diagnoses were identified. At this time, I feel that the patient stable for discharge. The patient was instructed to follow-up with a primary care physician in 1-3 days. The patient will be given strict precautions with which to return to the emergency department. Prescriptions: Keflex, Anusol ointment The patient's blood pressure was elevated at greater than 120/80 while in the emergency department. The patient was otherwise stable with no evidence of hypertensive urgency or emergency. The patient does not require admission for blood pressure control. I have discussed with the patient the risks of hyperte nsion. I have instructed the patient to return to the ER for any new or worsening symptoms including chest pain, shortness of breath, headache, blurred vision, confusion, nausea, vomiting or LOC. I have advised the patient to follow up with the primary care physician for outpatient monitoring and treatment for hypertension in 1-3 days. DISCLAIMER Inadvertent spelling and grammatical errors are likely due to EHR/dictation software use and do not reflect on the overall quality of patient care. Note that the electronic time recorded on this note does not necessarily reflect the actual time of the patient encounter. Departure Diagnosis: Primary Impression: Hemorrhoids Hemorrhoid type: unspecified Qualified Codes: K64.9 - Unspecified hemorrhoids Additional Impressions: Microcytic anemia Bright red blood per rectum Urinary tract infection Urinary tract infection type: acute cystitis Hematuria presence: with missael turia Qualified Codes: N30.01 - Acute cystitis with hematuria Condition: Stable Patient Instructions: Anemia, Hemorrhoids, Understanding Urinary Tract Infections (UTIs) Additional Instructions: It is very important that you follow-up with your primary care physician who can help coordinate care with a general surgeon for possible hemorrhoidectomy. You do not have any active bleeding at this time. While you are anemic, you are not emergent levels requiring transfusion. Your vitals are stable. You do not have symptomatic anemia at this time. I discussed the case with the general surgeon who indicated that this should be managed in an outpatient setting. It is important that you utilize sitz bath's 3 times a day. The general surgeon recommended that you also utilize witch billy in the sitz bath. You have also been given a prescription for Anusol ointment, which you should use as prescribed. Thank you for for coming to [facility] for your care today. Please ask your nurse or provider if you have questions about your care today and do not leave until all your questions have been answered. Please use any medications given as directed and follow-up with your doctor (or the doctor you were referred to) in the next 1-3 days. If you do not have a primary care doctor you [place] [facility] [place] [facility] (listed below). You may also use motrin and tylenol as needed for fever and/or pain unless instructed otherwise by your provider or nurse. Indications for more urgent follow-up have been discussed, but you may return to the Emergency Department at ANY time for any worrisome or worsening symptoms. If you have abdominal pain, please know that no test or exam you received is perfect and you should follow up within 8 hours for continued pain. If you had any imaging studies today, such as an X-Ray or CT Scan, these studies will be reviewed later by a radiologist. You will be called if there are important findings that were not identified today, so make sure the contact information you provided at registration is correct. If you received any narcotic pain control medicine today, such as Vicodin, Morphine or Dilaudid, your coordination and judgment may be affected for a number of hours. Please do not drive or operate heavy machinery, and you may want someone to assist you at home. If you were given a prescription for narcotic medication, be aware that it is very addictive- use sparingly and only if necessary. PLEASE SEEK FURTHER EVALUATION AND MANAGEMENT AT YOUR DOCTORS OFFICE WITHIN THE NEXT 1-3 DAYS. IT IS YOUR RESPONSIBILITY TO MAKE AN APPOINTMENT FOR FOLOW-UP CARE. IF YOU HAVE A PRIMARY DOCTOR, PLEASE CALL THEIR OFFICE TO SCHEDULE AN APPOINTMENT FOR FOLLOW UP. IF YOU DO NOT HAVE A PRIMARY DOCTOR YOU CAN CALL OUR PHYSICIAN REFERRAL HOTLINE AT IF YOU CAN NOT AFFORD TO SEE A PHYSICIAN YOU CAN CHOSE FROM THE FOLLOWING [facility] CL[facility]ICS[facility] [address] [facility]. [facility] [address] [facility]. [facility] [address] [facility] [facility] [address] [facility]. [facility] [address] [facility]. [address] EDWARD MACDONALD MD Dec 31, 2018 20:40
[2018-12-31 21:25] VITALS: BP 127/46; PULSE 78; RESP 20
== END 2018-12-31 21:27 | disposition home or self-care (01) ==
LOC: E/R 15:03
DX: K64.9 Unspecified hemorrhoids (principal); D50.9 Iron deficiency anemia, unspecified; N30.01 Acute cystitis with hematuria; I10 Essential (primary) hypertension; R10.30 Lower abdominal pain, unspecified
CPT/HCPCS: 80053; 81001; 85025; 85610; 85730; 86850; 86900; 86901; 93005

== ENCOUNTER 2019-01-29 10:15 | Inpatient (IN) | payer MEDICARE, OTHER ==
[~2019-01-29] VITALS: Ht 152.4 cm; Wt 56.0 kg
[~2019-01-29 10:15] MED LIST changes: +AMLO-145 PO; +BACL10TA PO; +BENA20TA4 PO; +CARV6.2579 PO; +FER325 PO; +LEVO500T48 PO; +LINA145C PO; +OXYB5TAB7 PO; +SENN-203 PO
[2019-01-29] MEDS ORDERED: SOD CHLORIDE 0.9% 1,000 ML IV SCH (13:59)
[2019-01-29] MEDS ORDERED: PANTOPRAZOLE IV 80 MG in SOD CHLORIDE 0.9% 100 ML IV STA (13:59)
[2019-01-29] MEDS ORDERED: PANTOPRAZOLE IV 80 MG in SOD CHLORIDE 0.9% 100 ML IVPB STA (13:59)
[2019-01-29] MEDS ORDERED: ACETAMINOPHEN 325 MG TAB PO PRN ×2 (14:00→16:00)
[2019-01-29] MEDS ORDERED: ONDANSETRON 4 MG INJ IV PRN ×2 (14:00→15:30)
[2019-01-29] MEDS ORDERED: HYDROCODONE/APAP (5/325) TAB PO PRN (15:30)
[2019-01-29] MEDS ORDERED: MAGNESIUM HYDROXIDE 30ML CUP PO PRN (15:30)
[2019-01-29] MEDS ORDERED: morphine 2 MG INJ IV PRN (15:30)
[2019-01-29] MEDS ORDERED: NACL 0.9% 3 ML SYG IV SCH (15:30)
[2019-01-29 20:36] VITALS: BP 172/74; PULSE 54; RESP 18
[2019-01-29] MEDS ORDERED: HARD FAT/PHENYLEPHRINE SUPP PR PRN (21:00)
[2019-01-29] MEDS: OXYBUTYNIN 5 MG TAB PO SCH (21:00)
[2019-01-29] MEDS: HARD FAT/PHENYLEPHRINE SUPP PR SCH (21:00)
[2019-01-29] MEDS: POLYETHYLENE GLYCOL 17 GM PACKET PO SCH (21:17)
[2019-01-29] MEDS: BACLOFEN 10 MG TAB PO SCH (21:17)
[2019-01-29] MEDS: SOD CHLORIDE 0.9% 1,000 ML IV SCH (21:17)
[2019-01-29 21:28] VITALS: Ht 152.4 cm; Wt 56.0 kg
[2019-01-29] MEDS: traMADol 50 MG TAB PO PRN (23:39)
[2019-01-30 01:40] VITALS: BP 184/75; PULSE 66; RESP 18
[2019-01-30] MEDS ORDERED: hydrALAzine 20 MG INJ IV ONE (02:30)
[2019-01-30 03:08] VITALS: BP 175/75; PULSE 64
[2019-01-30] MEDS: SOD CHLORIDE 0.9% 1,000 ML IV SCH ×3 (03:54→16:24)
[2019-01-30] MEDS: PANTOPRAZOLE 40 MG INJ IV SCH (05:31)
[2019-01-30 05:35] VITALS: BP 179/71; PULSE 61
[2019-01-30] MEDS ORDERED: PANTOPRAZOLE (EC) 40 MG TAB PO SCH (06:00)
[2019-01-30 07:59] VITALS: BP 189/81; PULSE 61; RESP 17
[2019-01-30] MEDS ORDERED: NON-FORMULARY/PATIENT OWN MED (Linaclotide (Linzess) 145 MCG) PO SCH (09:00)
[2019-01-30] MEDS: HARD FAT/PHENYLEPHRINE SUPP PR SCH ×3 (09:00→22:08)
[2019-01-30] MEDS ORDERED: LACTULOSE 30ML CUP PO PRN (09:30)
[2019-01-30] MEDS ORDERED: BISACODYL (EC) 5 MG TAB PO ONE (10:00)
[2019-01-30] MEDS: POLYETHYLENE GLYCOL 17 GM PACKET PO SCH ×2 (10:39→22:07)
[2019-01-30] MEDS: BACLOFEN 10 MG TAB PO SCH ×2 (10:42→22:06)
[2019-01-30] MEDS: SENNA/DOCUSATE NA (8.6MG/50MG) TAB PO SCH (10:42)
[2019-01-30] MEDS: BENAZEPRIL 20 MG TAB PO SCH (10:42)
[2019-01-30] MEDS: FERROUS SULFATE (EC) 325 MG TAB PO SCH (10:42)
[2019-01-30] MEDS: OXYBUTYNIN 5 MG TAB PO SCH ×2 (10:42→22:05)
[2019-01-30] MEDS ORDERED: hydrALAzine 20 MG INJ IV PRN (11:30)
[2019-01-30] MEDS: AMLODIPINE 5 MG TAB PO SCH ×2 (13:10→22:06)
[2019-01-30 14:10] VITALS: BP 175/74; PULSE 70; RESP 16
[2019-01-30] MEDS ORDERED: MAGNESIUM CITRATE 300 ML BTL PO ONE (17:30)
[2019-01-30] MEDS ORDERED: POLYETHYLENE GLYCOL 3350 119 GM POWDER PO ONE (18:30)
[2019-01-30 20:11] VITALS: BP 138/66; PULSE 67; RESP 17
[2019-01-30] MEDS: traMADol 50 MG TAB PO PRN (22:07)
[2019-01-31] MEDS: SOD CHLORIDE 0.9% 1,000 ML IV SCH ×2 (02:11→15:04)
[2019-01-31 03:02] VITALS: BP 138/76; PULSE 73; RESP 16
[2019-01-31] MEDS ORDERED: POLYETHYLENE GLYCOL 3350 119 GM POWDER PO ONE ×2 (06:00→18:30)
[2019-01-31] MEDS: PANTOPRAZOLE 40 MG INJ IV SCH (06:25)
[2019-01-31 07:58] VITALS: BP 154/85; PULSE 64; RESP 16
[2019-01-31] MEDS ORDERED: BISACODYL (EC) 5 MG TAB PO ONE ×2 (08:00→13:30)
[2019-01-31] MEDS: BENAZEPRIL 20 MG TAB PO SCH (08:58)
[2019-01-31] MEDS: OXYBUTYNIN 5 MG TAB PO SCH ×2 (08:58→20:50)
[2019-01-31] MEDS: POLYETHYLENE GLYCOL 17 GM PACKET PO SCH ×2 (08:58→20:52)
[2019-01-31] MEDS: FERROUS SULFATE (EC) 325 MG TAB PO SCH (08:58)
[2019-01-31] MEDS: SENNA/DOCUSATE NA (8.6MG/50MG) TAB PO SCH (08:59)
[2019-01-31] MEDS: AMLODIPINE 5 MG TAB PO SCH ×2 (08:59→20:52)
[2019-01-31] MEDS: BACLOFEN 10 MG TAB PO SCH ×2 (08:59→20:52)
[2019-01-31] MEDS: HARD FAT/PHENYLEPHRINE SUPP PR SCH ×3 (09:00→20:52)
[2019-01-31] MEDS: CIPROFLOXACIN 500 MG TAB PO SCH ×2 (13:32→20:52)
[2019-01-31 15:06] VITALS: BP 143/64; PULSE 71; RESP 16
[2019-01-31] MEDS ORDERED: MAGNESIUM CITRATE 300 ML BTL PO ONE (17:30)
[2019-01-31 19:35] VITALS: BP 159/71; PULSE 63; RESP 17
[2019-02-01] VITALS (11 sets, daily range): BP systolic 98–166; BP diastolic 37–72; PULSE 64–72; RESP 15–22
[2019-02-01] MEDS: CIPROFLOXACIN 500 MG TAB PO SCH ×2 (06:00→20:24)
[2019-02-01] MEDS ORDERED: POLYETHYLENE GLYCOL 3350 119 GM POWDER PO ONE (06:00)
[2019-02-01] MEDS: SOD CHLORIDE 0.9% 1,000 ML IV SCH (06:30)
[2019-02-01] MEDS: PANTOPRAZOLE 40 MG INJ IV SCH (06:30)
[2019-02-01] MEDS ORDERED: BISACODYL (EC) 5 MG TAB PO ONE (08:00)
[2019-02-01] MEDS: BENAZEPRIL 20 MG TAB PO SCH (08:47)
[2019-02-01] MEDS: AMLODIPINE 5 MG TAB PO SCH ×2 (08:52→20:25)
[2019-02-01] MEDS: OXYBUTYNIN 5 MG TAB PO SCH ×2 (08:52→20:24)
[2019-02-01] MEDS: FERROUS SULFATE (EC) 325 MG TAB PO SCH (08:52)
[2019-02-01] MEDS: BACLOFEN 10 MG TAB PO SCH ×2 (08:52→20:24)
[2019-02-01] MEDS: POLYETHYLENE GLYCOL 17 GM PACKET PO SCH ×2 (08:52→20:25)
[2019-02-01] MEDS: HARD FAT/PHENYLEPHRINE SUPP PR SCH ×3 (08:54→20:26)
[2019-02-01] MEDS: SENNA/DOCUSATE NA (8.6MG/50MG) TAB PO SCH (08:54)
[2019-02-01] MEDS ORDERED: POTASSIUM CHLORIDE (SR) 20 MEQ TAB PO ONE (09:00)
[2019-02-01] MEDS ORDERED: PHENYLephrine (100 MCG/ML) 10ML SYG ONE (18:04)
[2019-02-01] MEDS ORDERED: PROPOFOL 40 ML ONE (18:04)
[2019-02-02 02:12] VITALS: BP 115/57; PULSE 69; RESP 18
[2019-02-02] MEDS: PANTOPRAZOLE 40 MG INJ IV SCH (05:33)
[2019-02-02] MEDS: CIPROFLOXACIN 500 MG TAB PO SCH ×2 (05:34→17:34)
[2019-02-02 07:30] VITALS: BP 134/60; PULSE 69; RESP 16
[2019-02-02] MEDS: POLYETHYLENE GLYCOL 17 GM PACKET PO SCH ×2 (09:00→09:13)
[2019-02-02] MEDS: HARD FAT/PHENYLEPHRINE SUPP PR SCH ×2 (09:00→13:00)
[2019-02-02] MEDS: FERROUS SULFATE (EC) 325 MG TAB PO SCH (09:14)
[2019-02-02] MEDS: BACLOFEN 10 MG TAB PO SCH (09:14)
[2019-02-02] MEDS: AMLODIPINE 5 MG TAB PO SCH (09:14)
[2019-02-02] MEDS: SENNA/DOCUSATE NA (8.6MG/50MG) TAB PO SCH (09:15)
[2019-02-02] MEDS: BENAZEPRIL 20 MG TAB PO SCH (09:15)
[2019-02-02] MEDS: OXYBUTYNIN 5 MG TAB PO SCH (09:15)
[2019-02-02 15:00] VITALS: BP 126/60; PULSE 68; RESP 16
== END 2019-02-02 17:45 | disposition home health service (06) | DRG 378 ==
LOC: E/R 10:15 → 2NE 13:59
PROVIDERS: ADMIT Hospitalist; ATTEND Hospitalist
PROC: 30233N1 Transfusion of Nonautologous Red Blood Cells into Peripheral Vein, Percutaneous Approach (ICD-10-PCS; principal; 2019-01-29)
PROC: 0DBL8ZX Excision of Transverse Colon, Via Natural or Artificial Opening Endoscopic, Diagnostic (ICD-10-PCS; 2019-02-01)
DX: K92.2 Gastrointestinal hemorrhage, unspecified (principal); N39.0 Urinary tract infection, site not specified; D64.9 Anemia, unspecified; D12.3 Benign neoplasm of transverse colon; I10 Essential (primary) hypertension; M19.90 Unspecified osteoarthritis, unspecified site; D50.9 Iron deficiency anemia, unspecified; N28.9 Disorder of kidney and ureter, unspecified; E78.5 Hyperlipidemia, unspecified; K64.9 Unspecified hemorrhoids
CPT/HCPCS: 36415; 36430; 71045; 80048; 80053; 80061; 81001; 83036; 83735; 84100; 84436; 84443; 84479; 84484; 85025; 85610; 85730; 86850; 86900; 86901; 86920; 87086; 88305; 97161; C9113; J0360; J2370; J2405; J7030; P9016